=== PATIENT | male | born 1950 | race Caucasian/White ===

== ENCOUNTER 2017-11-06 07:41 | Observation (INO) | payer MEDICARE ==
[2017-11-06] MEDS ORDERED: LORazepam INJ* 2 MG/ML 1 ML VIAL IV ONE (08:11)
[2017-11-06] MEDS ORDERED: Ketorolac INJ* 60 MG/2 ML VIAL IM ONE (08:11)
[2017-11-06] MEDS ORDERED: LORazepam TAB(*) 1 MG PO ONE (08:30)
[2017-11-06] MEDS ORDERED: oxyCODONE/Acetamin 5/325 MG* TAB PO ONE (09:56)
--- NOTE | 2017-11-06 12:07 | RAD ---
Indication: Back pain. CT of the thoracic spine was obtained in the axial plane. Sagittal and coronal reconstructed images were obtained. The vertebral bodies appear normal in height. Degenerative disc disease is present at multiple levels. There is disc space narrowing at T6-T7. Osteophyte formation is present throughout the mid to lower thoracic spine. Spinal canal appears to be intact. No fracture is identified. IMPRESSION: Multilevel degenerative disc disease without evidence of fracture.
[2017-11-06] MEDS ORDERED: Morphine VIAL* 4 MG/ML VIAL (1 ml vial) IV PRN (14:52)
[2017-11-06] MEDS ORDERED: Ondansetron 40 MG VIAL* 2 MG/ML 20 ML VIAL IV PRN (14:52)
[2017-11-06] MEDS ORDERED: Al Hydrox/Mg Hydrox/Simet LIQ* 30 ML UDC PO PRN (14:52)
[2017-11-06] MEDS ORDERED: Ketorolac INJ* 15 MG/ML 1 ML VIAL IV PUSH PRN (15:00)
--- NOTE | 2017-11-06 15:24 | ED ---
Leonel Horne Jennifer, scribed for Enzo Gong MD on 11/06/17 at 0812 . Back Pain - HPI Summary HPI Summary: The patient is a 66 y/o who presents with back pain/injury since last night. The patient explains that he was grocery shopping last night and lifted two 10lb bags of bird seed when the pain began. 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 The patient explains he took some Ibuprofen, but the pain worsened throughout the night. The pain is located in the center of the back and feels like its constantly spasming. Patient denies problems with urination. - History of Current Complaint Chief Complaint: EDBackInjuryPain Stated Complaint: BACK PAIN Time Seen by Provider: 11/06/17 07:57 Hx Obtained From: Patient Onset/Duration: Sudden Onset, Lasting Hours - began last night, Still Present, Worse Since - middle of night Onset/Duration: Started Hours Ago, Still Present, Worse Since - worsened throughout the night Timing: Constant, Lasting Hours Back Pain Location: Is Discrete @ - middle back Severity Initially: Moderate Severity Currently: Moderate Pain Intensity: 4 Pain Scale Used: 0-10 Numeric Character: Spasmodic Aggravating Symptom(s): Lifting, Walking Alleviating Symptom(s): Rest Associated Signs And Symptoms: Negative: Abdominal Pain, Bladder Incontinence, Bowel Incontinence - Allergies/Home Medications Allergies/Adverse Reactions: Allergies Allergy/AdvReac Type Severity Reaction Status Date / Time sulfamethoxazole Allergy Hives Verified 11/06/17 07:50 [From Bactrim] trimethoprim [From Bactrim] Allergy Hives Verified 11/06/17 07:50 Home Medications: Home Medications Cyanocobalamin TAB* [Vitamin B12 TAB*] 500 mcg PO DAILY 11/06/17 [History Confirmed 11/06/17] Finasteride TAB* [Proscar TAB*] 5 mg PO DAILY 11/06/17 [History Confirmed ] Glucosamine/D3/Boswellia Deja [Osteo Bi-Flex Tablet] 1 tab PO DAILY 11/06/17 [ History Confirmed 11/06/17] Pyridoxine TAB* [Vitamin B6 TAB*] 100 mg PO DAILY 11/06/17 [History Confirmed ] Tamsulosin CAP* [Flomax CAP*] 0.8 mg PO DAILY 11/06/17 [History Confirmed ] Thiamine TAB* [Vitamin B-1 TAB*] 100 mg PO DAILY 11/06/17 [History Confirmed ] PMH/Surg Hx/FS Hx/Imm Hx Endocrine/Hematology History: Denies: Hx Diabetes Cardiovascular History: Reports: Hx Hypertension Musculoskeletal History: Reports: Other Musculoskeletal History - Hx degenerative disc disease Infectious Disease History: No Infectious Disease History: Denies: Traveled Outside the [place] in Last 30 Days - Family History Known Family History: Positive: Hypertension - Father, Diabetes - Uncle - Social History Alcohol Use: Rare Hx Substance Use: No Substance Use Type: Reports: None Hx Tobacco Use: No Smoking Status (MU): Never Smoked Tobacco Review of Systems Negative: dysuria, frequency, hematuria, incontinence Positive: Myalgia - back pain All Other Systems Reviewed And Are Negative: Yes Physical Exam - Summary Physical Exam Summary: Appearance: The patient is well-nourished in no acute distress and in no acute pain. Skin: The skin is warm and dry and skin color reflects adequate perfusion. HEENT: The head is normocephalic and atraumatic. The pupils are equal and reactive. The conjunctivae are clear and without drainage. Nares are patent and without drainage. Mouth reveals moist mucous membranes and the throat is without erythema and exudate. The external ears are intact. The ear canals are patent and without drainage. The tympanic membranes are intact. Neck: the neck is supple with full range of motion and non-tender. There are no carotid bruits. There is no neck vein distension. Respiratory: Chest is non-tender. Lungs are clear to auscultation and breath sounds are symmetrical and equal. Cardiovascular: Heart is regular rate and rhythm. There is no murmur or rub auscultated. There is no peripheral edema and pulses are symmetrical and equal. Abdomen: The abdomen is soft and non-tender. There are normal bowel sounds heard in all four quadrants and there is no organomegaly palpated. Musculoskeletal: There is paradorsal tenderness. Extremities are non-tender with full range of motion. There is good capillary refill. There is no peripheral edema or calf tenderness elicited. Neurological: Patient is alert and oriented to person, place and time. The patient has symmetrical motor strength in all four extremities. Cranial nerves are grossly intact. Deep tendon reflexes are symmetrical and equal in all four extremities. Psychiatric: The patient has an appropriate affect and does not exhibit any anxiety or depression. Triage Information Reviewed: Yes Vital Signs On Initial Exam: Initial Vitals Pulse Pulse Ox 81 100 11/06/17 07:47 11/06/17 07:47 Vital Signs Reviewed: Yes Diagnostics - Vital Signs Vital Signs Temp Pulse Resp BP Pulse Ox 11/06/17 07:53 85 100 11/06/17 07:48 99.0 F 81 18 177/87 99 11/06/17 07:47 81 100 - Laboratory Lab Statement: Any lab studies that have been ordered have been reviewed, and results considered in the medical decision making process. - CT T-Spine CT CT Interpretation: No Acute Changes - Multilevel degenerative disc disease without evidence of fracture. Dr. Gong has reviewed this report. CT Interpretation Completed By: Radiologist Re-Evaluation - Re-Evaluation First Eval Re-Evaluation Time: 09:56 Change: Improved Comment: The patient is feeling better but not enough yet. Back Pain Course/Dx - Course Course Of Treatment: Mr. Brower hurt his back lifting some bags yesterday. It got steadily worse thoughout the day and he was unable to walk this AM when he woke up. He didn't respond well to medications here in the ED so I obtained a CT to make sure nothing was being missed. He does have disc space narrowing at D6-7. His pain continued unabated and he was unable to get out of the bed. I have asked the hospitalist service to evaulate him. - Diagnoses Provider Diagnoses: Intractable back pain Discharge - Sign-Out/Discharge Documenting (check all that apply): Discharge/Admit/Transfer - Discharge Plan Condition: Stable Disposition: ADMITTED TO [facility] Referrals: Ambrosio Colon MD [Primary Care Provider] - Additional Instructions: Follow up with your primary care physician in three days. Return to the emergency department for any new or worsening symptoms. - Billing Disposition and Condition Condition: STABLE Disposition: [facility] [place] The documentation as recorded by the Leonel beard Jennifer accurately reflects the service I personally performed and the decisions made by me, Enzo Gong MD.
[2017-11-06] MEDS: oxyCODONE/Acetamin 5/325 MG* TAB PO PRN (15:47)
[2017-11-06] MEDS: Cyclobenzaprine TAB* 10 MG PO PRN ×2 (15:47→21:09)
[2017-11-06] MEDS: Tamsulosin CAP* 0.4 MG PO SCH (16:56)
[2017-11-06] MEDS: Finasteride TAB* 5 MG PO SCH (16:57)
--- NOTE | 2017-11-06 18:07 | RAD ---
INDICATION: MRI screening COMPARISON: None TECHNIQUE: Pandya and lateral views of the orbits were acquired FINDINGS: Orbits: There is no evidence of intraorbital metallic density foreign body. Other: None IMPRESSION: no metallic intraorbital foreign body
--- NOTE | 2017-11-06 18:43 | RAD ---
INDICATION: Thoracic and lumbar pain COMPARISON: CT thoracic spine same date TECHNIQUE: Coronal T2, sagittal T1, T2, inversion recovery, and axial T1 and T2-weighted images were acquired. FINDINGS: Conus medullaris: Normal in size and position . Lumbar alignment: 1 anterolisthesis L4 on L5. Vertebrae: There are mild multilevel endplate marrow signal abnormalities consistent with osteoarthritis. Disc spaces: T12-L1: Normal L1-L2: Normal L2-L3: Minor narrowing. Mild broad-based circumferential bulging the disc leading to mild partial effacement of the anterior thecal sac. Wide canal and foraminal patency. L3-L4: Mild bibasilar circumferential bulging the disc leading to partial effacement of CSF anterior to the cord. Wide canal and foraminal patency L4-L5: Mild degenerative endplate changes. In this space narrowing. A 3 mm anterolisthesis of L4 and L5 combined with ligamentous and facet overgrowth and moderate bulging the disc produces mild to moderate central canal stenosis. There is mild bilateral foraminal narrowing. L5-S1: Advanced degenerative disc disease with endplate irregularities. No canal or foraminal compromise Soft tissues:There is no paravertebral abnormality. Other:None IMPRESSION: Grade 1 anterolisthesis of L4 and L5 with mild to moderate central canal stenosis and mild bilateral foraminal narrowing. Additional multilevel degenerative changes as described there are not associated with canal or foraminal compromise.
--- NOTE | 2017-11-06 20:41 | HP ---
ADMISSION HISTORY AND PHYSICAL: DATE OF ADMISSION: 11/06/17 PATIENT OF: Yumiko Anupboris DO * (DICTATED BY DAVID OTTO) CHIEF COMPLAINT: Mid back pain and inability to walk. HISTORY OF PRESENT ILLNESS: Mr. Brower is a pleasant 66-year-old gentleman with past medical history significant for benign prostatic hypertrophy for which he has been seeing Dr. Molina for the past few years. He presented to the emergency room earlier today with complaints of 1-day history of worsening mid back pain and muscle spasm. The patient apparently was grocery shopping yesterday and he reports bending over slightly to carry 2 heavy bags of bird seeds, both of them weighing approximately 10 to 20 pounds when he noticed some mid back discomfort. He continued shopping and when he went back to his car in the parking lot, he emptied his shopping card including the bird seed bags as well as multiple containers of water. He noticed increasing pain at the same area in his mid back, but was able to carry on and drove back home. He took 2 ibuprofen tablets overnight and he got up early this morning with worsening mid back pain and spasm. It has gotten progressively worse to the point that he was not able to tolerate walking. He was brought to the emergency room by ambulance as he described he was not able to walk on his own at all. He denies any urinary or fecal incontinence or any significant fall or trauma other than lifting heavy objects yesterday while grocery shopping. He denies any similar complaints in the past. His only significant history of back problems dated years ago when he was 24 years old when he fell and hit a chair on his back; however, there was no significant injury that needed any intervention. He reports occasional aches and pains related to probable arthritis, but denies again any significant back issues in the recent years. He was elevated in the emergency room and had a thoracic spine CT that revealed degenerative joint disease with no evidence of any vertebral fracture or narrowing of the neural canal. The patient continued to be unable to walk and continued to have occasional spasm to his mid back for which we were asked to see the patient for evaluation and possible admission. PAST MEDICAL HISTORY: Significant for benign prostatic hypertrophy, but otherwise he has been an extremely healthy 66-year-old gentleman who denies any history of heart, liver, lungs or kidney disease. PAST SURGICAL HISTORY: Significant for a benign cyst removal from the back of his head years ago. CURRENT MEDICATIONS: His medications at home include: 1. Vitamin B12, 500 mcg p.o. daily. 2. Proscar 5 mg p.o. daily. 3. Glucosamine and chondroitin combination 1 tablet p.o. daily. 4. Vitamin B6, 100 mg p.o. daily. 5. Tamsulosin 0.8 mg p.o. daily. 6. Vitamin B1 tablets 100 mg p.o. daily. ALLERGIES: He is allergic to: 1. BACTRIM. 2. SULFA ANTIBIOTICS. FAMILY HISTORY: He denies any family history of significant malignancies or cardiovascular disease. SOCIAL HISTORY: The patient is , has 4 kids and 6 grand kids. 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 He denies smoking or alcohol intake. His , Yazmin, is the person to notify and carry healthcare proxy. REVIEW OF SYSTEMS: See HPI, otherwise 14-point review of systems is essentially normal. PHYSICAL EXAMINATION GENERAL: He is a pleasant healthy appearing upper middle-aged gentleman, in no acute distress or discomfort at the time of admission. VITAL SIGNS: His recent set of vitals was blood pressure of 153/76, pulse of 78 , temperature of 99.0, pulse of 78, and O2 sat of 98% on room air. HEENT: Head is normocephalic, atraumatic. Sclerae anicteric. PERRLA. EOMs intact. Oropharynx is pink and moist with no exudate. NECK: Supple. Trachea midline. No cervical adenopathy, thyromegaly, or JVD. LUNGS: Clear to auscultation bilaterally. HEART: Regular rate and rhythm. Normal S1 and S2 without rubs, murmurs, or gallops. BACK: Normal curvature. No CVA tenderness. Focused examination to the spine revealed moderate spinal and para-spinal tenderness to the thoracic area with significant muscle rigidity including latissimus dorsi and paraspinal muscle groups. There is no evidence of swelling or ecchymosis. L-spine and sacral spinal joints with no tenderness on exam. ABDOMEN: Soft, nontender, and nondistended. No hernias, masses, or hepatosplenomegaly. EXTREMITIES: Without cyanosis, clubbing, or edema. RECTAL: Deferred at this time. NEUROLOGIC: Sensation and motor were intact bilaterally. 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 He was able to lift both legs up off the bed about 30 degrees before he starts to experience some lower back discomfort. There is no foot drop and Babinski was negative. ACCESSORY DIAGNOSTIC DATA: The patient had a thoracic spine CT that revealed multilevel degenerative disk disease without evidence of fracture. IMPRESSION: A 66-year-old gentleman with no significant past medical history who presented to the emergency room with 24-hour history of worsening mid back pain and spasm after he lifted heavy objects while grocery shopping yesterday. ASSESSMENT/PLAN: 1. Back pain. The patient will be admitted for observation to medical services. We will provide analgesics, narcotics and muscle relaxant attempting to relieve his pain. We will also obtain a physical therapy consultation to see if he can ambulate. He appears to be stable at this time with no evidence of neurologic deficit. However, I explained to him that if he continued to have mid back pain and inability to ambulate, we might require to get a neurologic consultation for further evaluation of back pain. 2. Benign prostatic hypertrophy. We will continue his Proscar and tamsulosin as prescribed. The patient has experienced no signs of urinary retention, neither urinary incontinence. 3. DVT prophylaxis. Given his age alone, the patient is considered moderate risk for which we will cover him with subcu heparin as well as SCD. 4. Code status. The patient is a full code. DAVID OTTO [id number]/[facility] #: [id number] RHONDA
[2017-11-06] MEDS: Acetaminophen TAB* 325 MG PO PRN (21:08)
[2017-11-06] MEDS: Docusate CAP* 100 MG PO SCH (21:09)
[2017-11-06] MEDS: Heparin VIAL(*) 5000 UNITS/ML VIAL (FIVE THOUSAND) SUBCUT SCH (21:13)
[2017-11-07] MEDS: oxyCODONE/Acetamin 5/325 MG* TAB PO PRN (03:49)
[2017-11-07 05:12] LABS: ABS Basophils 0 10^3/ul (0-0.2); ABS Eosinophils 0 10^3/ul (0-0.6); ABS Lymphocytes 0.7 10^3/ul (1.0-4.8); ABS Monocytes 1.3 10^3/ul (0-0.8); ABS Neutrophils 12.5 10^3/ul (1.5-7.7); ABS Nucleated RBC 0 10^3/ul; Eosinophil % 0.1 % (0-6); Hematocrit 43 % (42-52); Hemoglobin 14.7 g/dl (14.0-18.0); Lymphocyte % 4.9 % (25-47); Mean Corpuscular HGB Conc 35 g/dl (31-36); Mean Corpuscular Hemoglobin 31 pg (27-31); Mean Corpuscular Volume 90 fL (80-94); Mean Platelet Volume 7.3 um3 (7.4-10.4); Nucleated Red Blood Cells % 0; Platelet Count 170 10^3/ul (150-450); Red Blood Count 4.73 10^6/ul (4.0-5.4); Red Cell Distribution Width 13 % (10.5-15); White Blood Count 14.6 10^3/ul (3.5-10.8)
[2017-11-07 05:28] LABS: EGFR Non-African American 84.2 (>60)
[2017-11-07] MEDS: Heparin VIAL(*) 5000 UNITS/ML VIAL (FIVE THOUSAND) SUBCUT SCH ×2 (06:46→14:08)
[2017-11-07] MEDS: Finasteride TAB* 5 MG PO SCH (08:04)
[2017-11-07] MEDS: Tamsulosin CAP* 0.4 MG PO SCH (08:04)
[2017-11-07] MEDS: Docusate CAP* 100 MG PO SCH (08:04)
[2017-11-07] MEDS: Cyclobenzaprine TAB* 10 MG PO PRN (08:05)
[2017-11-07] MEDS ORDERED: Finasteride TAB* 5 MG PO SCH (09:00)
[2017-11-07] MEDS ORDERED: Tamsulosin CAP* 0.4 MG PO SCH (09:00)
--- NOTE | 2017-11-07 11:39 | RAD ---
Dictation: Fever, leukocytosis. Single frontal view of the chest performed at 1026 hours was reviewed. No prior study is available. No mediastinal shift is noted. Heart is of normal size and configuration. Lung antonio appear clear. IMPRESSION: NO ACTIVE CARDIOPULMONARY DISEASE IS NOTED.
[2017-11-07 11:43] VITALS: BP 158/71
[2017-11-07 12:44] LABS: Urine Appearance Cloudy; Urine Blood 2+ (Negative); Urine Color Amber; Urine Ketones Negative (Negative); Urine Protein 1+(30 mg/dL) (Negative); Urine Specific Gravity 1.029 (1.010-1.030); Urine Urobilinogen Negative (Negative)
[2017-11-07] MEDS: Acetaminophen TAB* 325 MG PO PRN (13:56)
--- NOTE | 2017-11-08 06:11 | DS ---
CC: Dr. Ambrosio Colon* DISCHARGE SUMMARY: DATE OF ADMISSION: 11/06/17 DATE OF DISCHARGE: 11/07/17 PATIENT OF: Yumiko Barrios DO ATTENDING HOSPITALIST: Abel Steele MD* (dictated by DAVID Otto). CONSULTATIONS: None. PROCEDURE: None. CHIEF COMPLAINT: Mid back pain and inability to walk. BRIEF MEDICAL HISTORY: Mr. Brower is a pleasant 66-year-old gentleman with no significant past medical history except for benign prostatic hypertrophy for which he has been taking medication and been seen by Dr. Molina in the past. He presented to the emergency room yesterday morning with complaints of 1-day history of worsening mid back pain and spasm. He apparently was grocery shopping the day before admission and he reports bending over to slightly carry 2 heavy bags of bird seeds when he noticed some cramping and spasm in his mid back. He was able to lift the bags to his shopping cart and noticed recurrent discomfort when he emptied his shopping cart in the back of his car. He went home and took some ibuprofen, felt slightly better. He got up on the next morning with excruciating pain and spasm to his mid back. It has gotten worse to the point that he could not ambulate very well for which ambulance was called to transport him to the emergency room. He denied any weakness, numbness , fecal or urinary incontinence. He had trauma back when he was 24 years old when he fell on a chair but there was no damage or any investigation to his back spine. During his emergency room visit, he had a CT scan of the thoracic spine that showed degenerative joint changes with no evidence of vertebral fractures. The patient continued to be unable to walk despite pain medication in the ED for which we were asked to evaluate the patient and admit him for pain control and observation. HOSPITAL COURSE: The patient was admitted on 11/06/17 under hospitalist service for observation. He was given narcotics for pain in addition to Flexeril for muscle relaxant. Physical Therapy consultation was obtained and patient eventually was able to ambulate slightly that night. He continued to have intermittent pain and spasm and was unable to tolerate walking for long distance for which an MRI of lumbar spine was obtained that evening. The MRI was reviewed and showed grade 1 anterolisthesis of L4 and L5 with mild-to- moderate central canal stenosis and mild bilateral foraminal narrowing. There were also some changes consistent with degenerative joint disease. That results were discussed with Dr. Coffman without formal consultation obtained. He was able to review the MRI and there were no clinical red flags to suggest inability to ambulate. The patient was reevaluated in the morning and he continued to have some muscle spasm that has gotten better overnight. He was able to complete his physical therapy session and he walked approximately 85 feet around the hallway using walker for assistance. He denied any complaints of significant lower back pain or incontinence of stool or urine. He had a low- grade fever overnight with temperature of 99.4 for which a CBC, urinalysis, and chest x-ray was obtained and the patient had slight leukocytosis in the setting with elevated CRP, which is consistent with inflammatory changes that is secondary to his muscle spasm. The patient continued to improve throughout the day. He was ambulating using his walker and the plan for him to be discharged home later today and follow up with his primary care physician in the next 3 to 5 days. DISCHARGE MEDICATIONS: Include: 1. Vitamin B12 500 mcg p.o. daily. 2. Flexeril 10 mg p.o. t.i.d. 3. Colace 100 mg p.o. b.i.d. 4. Proscar 5 mg p.o. daily. 5. Glucosamine 1 tablet p.o. daily. 6. Percocet 5/325 two tablets p.o. q.6 hours as needed for pain. 7. Vitamin B6 100 mg p.o. daily. 8. Flomax 0.8 mg p.o. daily. 9. Thiamine 100 mg p.o. daily. DAVID OTTO [id number]/[facility] #: [id number] RHONDA
--- NOTE | 2017-11-08 06:30 | PN ---
Hospitalist Progress Note Date of Service: 11/08/17 Received call from lab about positive blood culture one bottle grew gram negative bertha. Note fever 100.3 yesterday and crp elevated and wbc 14.9. Call patient patient states he is still having back pain in the upper back between shoulders. Denies fever. I explained that he needs to come back to ER for further eval and possible iv abx. I also explained that his PO abx may not be adequate and that bacteremia can lead to sepsis and possible shock and if untreated. He states he will come in at 1100 today. Will alert ED of patient and that he may be coming to the ED.
== END 2017-11-07 15:35 | disposition home or self-care (01) ==
LOC: ED 07:41 → MED 15:32
PROVIDERS: ADMIT Internal Medicine; ATTEND Internal Medicine
DX: M54.9 Dorsalgia, unspecified (principal); N40.1 Benign prostatic hyperplasia with lower urinary tract symptoms; M62.830 Muscle spasm of back
CPT/HCPCS: 36415; 70030; 71045; 72128; 72148; 80048; 81003; 81015; 85025; 86140; 87040; 87077; 87086; 87186; 87205; 96372; 96374; 99284; A9270-GY; G0378; G8978-GP-CI; G8979-GP-CH; J1644; J1885; J2270

== ENCOUNTER 2017-11-08 11:06 | Inpatient (IN) | payer MEDICARE ==
[2017-11-08] MEDS ORDERED: NS 0.9% 1000 ML*IV.FLUID IV ONE (12:59)
[2017-11-08] MEDS ORDERED: Acetaminophen TAB* 325 MG PO ONE (13:15)
--- NOTE | 2017-11-08 13:29 | ED ---
Sepsis HPI - HPI Summary HPI Summary: Patient returns to ED after presenting on Monday with acute onset thoracic back pain. His thoracic back pain started after lifting heavy objects at the grocery store. He had a thoracic CT of the area which showed degenerative disc disease however no acute findings were identified, including fx, abscess. He was admitted to the hospitalist as his pain was intractable despite multiple medication attempts her in the ED. While hospitalized, he developed chills and a low-grade fever. Labs were drawn and he was found to have an elevated white blood cell count however without known source of infection, patient was discharged home. His blood culture grew gram-negative bacilli and so he was asked to return here today. He continues to have a fever and pain in his upper back. It is unsure if these 2 are related. His urine revealed blood, protein and final urine culture reveals no growth. He does admit to a history of prostate infections in the past however he does not have the symptoms that typically go along with this which are perineal fullness and burning. He denies recent injury or wounds to his skin that could be creating infection. He also denies urinary symptoms as well as respiratory symptoms and GI symptoms of nausea, vomiting, diarrhea, hematochezia, melena. He has been constipated since he's been taking pain medication for back pain on Monday. - these include narcotic and muscle relaxer. Denies headache, neck pain or stiffness, numbness , tingling, weakness. He is an overall healthy gentleman who takes no medication at home. Admits he had HTN in the past but reports it's been well controlled for years. Will be treated for gram neg bacilli bacteremia today and continue to search for source of his infection. With h/o prostate infection and gram neg bacilli, suspect this could be the source. - History of Current Complaint Chief Complaint: EDGeneral Time Seen by Provider: 11/08/17 12:58 Stated Complaint: BACK PAIN Hx Obtained From: Patient, Family/German Teacher - Pain Intensity: 4 - Additional Pertinent History Primary Care Physician: [id number] - Allergy/Home Medications Allergies/Adverse Reactions: Allergies Allergy/AdvReac Type Severity Reaction Status Date / Time sulfamethoxazole Allergy Hives Verified 11/08/17 11:10 [From Bactrim] trimethoprim [From Bactrim] Allergy Hives Verified 11/08/17 11:10 PMH/Surg Hx/FS Hx/Imm Hx Previously Healthy: Yes Endocrine/Hematology History: Denies: Hx Anticoagulant Therapy, Hx Blood Disorders, Hx Diabetes Cardiovascular History: Reports: Hx Hypercholesterolemia - resolved with diet, Hx Hypertension - resolved with diet Denies: Hx Aneurysm, Hx Coronary Artery Disease, Hx Myocardial Infarction, Hx Pacemaker/ICD, Hx Valvular Heart Disease Respiratory History: Denies: Hx Asthma, Hx Chronic Obstructive Pulmonary Disease (COPD), Hx Pneumonia GI History: Reports: Hx Irritable Bowel - treating with diet changes History: Reports: Hx Benign Prostatic Hyperplasia, Other Problems/ Disorders - h/o prostate infection Musculoskeletal History: Reports: Hx Back Problems, Other Musculoskeletal History - Hx degenerative disc disease Sensory History: Reports: Hx Contacts or Glasses Denies: Hx Hearing Aid, Other Sensory Impairments Opthamlomology History: Reports: Hx Contacts or Glasses Denies: Other Sensory Impairments Psychiatric History: Denies: Hx Panic Disorder - Immunization History Immunizations Up to Date: Yes Infectious Disease History: No Infectious Disease History: Denies: Hx Clostridium Difficile, Hx Hepatitis, Hx Human Immunodeficiency Virus (HIV), Hx of Known/Suspected MRSA, Traveled Outside the [place] in Last 30 Days - Family History Known Family History: Positive: Hypertension - Father, Diabetes - Uncle - Social History Alcohol Use: Rare Hx Substance Use: No Substance Use Type: Reports: None Hx Tobacco Use: No Smoking Status (MU): Never Smoked Tobacco Review of Systems Positive: Fever Eyes: Negative ENT: Negative Cardiovascular: Negative Respiratory: Negative Gastrointestinal: Other - stomach is getting Physical Exam Vital Signs On Initial Exam: Initial Vitals Temp Pulse Resp BP Pulse Ox 100.8 F 93 20 165/69 97 11/08/17 11:10 11/08/17 11:10 11/08/17 11:10 11/08/17 11:10 11/08/17 11:10 Diagnostics - Vital Signs Vital Signs Temp Pulse Resp BP Pulse Ox 11/08/17 11:10 100.8 F 93 20 165/69 97 - Laboratory Lab Statement: Any lab studies that have been ordered have been reviewed, and results considered in the medical decision making process. Discharge - Discharge Plan Referrals: Ambrosio Colon MD [Primary Care Provider] -
[2017-11-08] MEDS ORDERED: Cefepime 2 GM in Dextrose(*) 2 GM/50 ML BAG IV ONE (13:39)
[2017-11-08] MEDS ORDERED: Ketorolac INJ* 30 MG/ML 1 ML VIAL IV PUSH ONE (13:44)
[2017-11-08 13:52] LABS: ABS Basophils 0 10^3/ul (0-0.2); ABS Eosinophils 0 10^3/ul (0-0.6); ABS Lymphocytes 0.6 10^3/ul (1.0-4.8); ABS Neutrophils 8.7 10^3/ul (1.5-7.7); ABS Nucleated RBC 0 10^3/ul; Eosinophil % 0 % (0-6); Hematocrit 41 % (42-52); Hemoglobin 14.4 g/dl (14.0-18.0); Lymphocyte % 5.8 % (25-47); Mean Corpuscular HGB Conc 35 g/dl (31-36); Mean Corpuscular Hemoglobin 31 pg (27-31); Mean Corpuscular Volume 89 fL (80-94); Mean Platelet Volume 7.5 um3 (7.4-10.4); Nucleated Red Blood Cells % 0.1; Platelet Count 163 10^3/ul (150-450); Red Blood Count 4.61 10^6/ul (4.0-5.4); Red Cell Distribution Width 13 % (10.5-15); White Blood Count 10.4 10^3/ul (3.5-10.8)
[2017-11-08 14:07] LABS: INR 0.97 (0.77-1.02)
[2017-11-08 14:14] LABS: EGFR Non-African American 76.3 (>60)
--- NOTE | 2017-11-08 14:15 | RAD ---
INDICATION: Sepsis. COMPARISON: Comparison is made with a prior study from February 07, 2018. TECHNIQUE: A portable view of the chest was obtained. FINDINGS: Cardiac and mediastinal contours appear to be within normal limits. The lungs are clear. No pleural effusion is seen. IMPRESSION: NO EVIDENCE FOR ACUTE DISEASE.
[2017-11-08] MEDS ORDERED: Cyclobenzaprine TAB* 10 MG PO PRN (14:29)
[2017-11-08] MEDS ORDERED: oxyCODONE/Acetamin 5/325 MG* TAB PO PRN ×2 (14:29→14:30)
[2017-11-08] MEDS ORDERED: Morphine VIAL* 4 MG/ML VIAL (1 ml vial) IV PRN (14:48)
[2017-11-08] MEDS ORDERED: Ondansetron 40 MG VIAL* 2 MG/ML 20 ML VIAL IV PRN (14:49)
[2017-11-08 15:08] LABS: Urine Appearance Clear; Urine Blood 2+ (Negative); Urine Color Yellow; Urine Ketones Trace (Negative); Urine Protein Negative (Negative); Urine Specific Gravity 1.006 (1.010-1.030); Urine Urobilinogen Negative (Negative)
[2017-11-08] MEDS ORDERED: Gadoteridol* (CONTRAST) 279.3 MG/ML 10 ML IV ONE (15:26)
--- NOTE | 2017-11-08 16:32 | RAD ---
INDICATION: Back pain. Possible infection . Bacteremia. COMPARISON: CT thoracic spine November 06, 2017 TECHNIQUE: Noncontrast Coronal T2, sagittal T1, T2, inversion recovery, and axial T1 and T2-weighted images were acquired. FINDINGS: Cord: There are no intrinsic abnormalities of the cord. Vertebrae/disc: There are endplate changes at T6-T7 with edema. This is most likely related to degenerative disc disease although osteomyelitis/discitis could have this appearance. There are milder osteocytic changes of the thoracic spine with minor vertebral spurring is better identified on the CT. There is additional minor multilevel disc space narrowing. Paravertebral soft tissues there is no paravertebral mass. There is are no findings to suggest abscess. IMPRESSION: ENDPLATE IRREGULARITIES WITH EDEMA AT THE T6-T7 LEVEL CORRESPONDING TO DEGENERATIVE CHANGES IDENTIFIED ON THE EARLIER CT SCAN. THESE FINDINGS ARE LIKELY SECONDARY TO OSTEOARTHRITIS/DEGENERATIVE CHANGE. HOWEVER, OSTEOMYELITIS/DISCITIS CANNOT BE EXCLUDED.
[2017-11-08] MEDS: Tamsulosin CAP* 0.4 MG PO SCH (17:51)
[2017-11-08] MEDS: Polyethylene Glycol 3350* 17 GM PACKET PO PRN (17:51)
[2017-11-08] MEDS: NS 0.9% 1000 ML* 1,000 ML IV SCH (17:51)
[2017-11-08] MEDS: Finasteride TAB* 5 MG PO SCH (17:51)
[2017-11-08] MEDS: Magnesium Hydroxide LIQ* 30 ML UDC PO PRN (17:51)
[2017-11-08] MEDS: Acetaminophen TAB* 325 MG PO PRN ×2 (18:22→22:33)
[2017-11-08] MEDS ORDERED: Ketorolac INJ* 15 MG/ML 1 ML VIAL IV PUSH ONE (20:42)
--- NOTE | 2017-11-08 21:16 | HP ---
CC: Dr. Ambrosio Colon * HISTORY AND PHYSICAL: DATE OF ADMISSION: 11/08/17 PRIMARY CARE PROVIDER: Dr. Ambrosio Colon. ATTENDING PHYSICIAN: Dr. Baldomero Zheng * (dictated by Joseph Fenton NP) . CHIEF COMPLAINT: Back pain, the patient was asked to return to the hospital after having 1 positive blood culture bottle with gram-negative bacteria. HISTORY OF PRESENT ILLNESS: Mr. Brower is a 66-year-old male with a past medical history significant for BPH, who presented initially to the hospital on 11/06/17, with complaints of thoracic back pain. The patient states that he had been in his usual state of health and was at the grocery store when he lifted two 10-pound bags into the car and then while lifting 1 gallon water jugs into the car, he developed a sudden onset of thoracic back pain. Due to this, he presented to the emergency room. While in the emergency room, the patient had intractable pain and so the Hospitalist admitted him. The patient was admitted overnight and continued to have pain throughout his overnight hospitalization. He had a thoracic spine CT showing multilevel degenerative disk disease. He had an MRI of his lumbar spine without contrast showing " grade 1 anterolisthesis at L4 and L5 with [id number] central canal stenosis and mild bilateral foraminal narrowing. Additional multilevel degenerative changes are described without associated canal or foraminal compromise". The patient was able to ambulate and was discharged home yesterday on 11/07/17. The patient reports a fever and chills. He denies any chest pain, cough, shortness of breath, nausea, vomiting, nasal congestion, urinary symptoms such as dysuria, urgency, frequency, pelvic pressure. He also reports being constipated and not having a bowel movement in 3 days. He denies any joint pain or muscle pain other than his back pain. The patient denies any numbness, tingling, or weakness in his legs, or loss of bowel or bladder control. He also reports postnasal drip. The patient received a call today from the hospital informing him that he had bacteria in his blood cultures and he was asked to come back to the emergency room for further evaluation. While in the emergency room, the patient had another set of blood cultures drawn. He received normal saline bolus according to sepsis guidelines. He received cefepime, Toradol, and Tylenol. The patient stated during his time in the ER, his pain was actually improving in his back. Due to the patient's bacteremia, the Hospitalists were asked to evaluate the patient for admission. PAST MEDICAL HISTORY: BPH. PAST SURGICAL HISTORY: Status post excision of benign cyst to the back of his head. HOME MEDICATIONS: Include: 1. Vitamin B6 100 mg oral daily. 2. Percocet 5/325 two tablets oral every 6 hours as needed for pain. 3. Flexeril 10 mg oral 3 times daily as needed for muscle spasms. 4. Vitamin B12 500 mcg oral daily. 5. Osteo Bi-Flex 1 tablet oral daily. 6. Proscar 5 mg oral daily. 7. Colace 100 mg oral twice daily. 8. Thiamine 100 mg oral daily. 9. Flomax 0.8 mg oral daily. ALLERGIES: BACTRIM causes hives. FAMILY HISTORY: The patient's father had a history of an enlarged heart. He had a paternal uncle with a history of diabetes and his father had a history of leukemia. SOCIAL HISTORY: The patient is a former smoker. He rarely drinks alcohol. Denies recreational drug use. His , Yazmin Brower, will be his surrogate decision maker in the event he is unable to make decisions for himself. REVIEW OF SYSTEMS: I performed an 11-point review of systems. All the pertinent positives and negatives are mentioned in the history of present illness. The remaining review of systems are negative. PHYSICAL EXAMINATION GENERAL APPEARANCE: The patient is alert, pleasant and appears to be in no acute distress. VITAL SIGNS: Temperature 100.8, heart rate 93, respiratory rate 22, O2 sat 98% on room air, blood pressure 132/82. HEENT: Normocephalic, atraumatic. Pupils are equal and reactive to light. Extraocular movements are intact. The patient has no sinus tenderness. RESPIRATORY: There is no accessory muscle use. The lungs are clear to auscultation bilaterally. CARDIOVASCULAR: Regular rate and rhythm. S1 and S2 present. There are no murmurs, rubs, or gallops heard. ABDOMEN: Soft, nontender, nondistended. There are bowel sounds present x4. EXTREMITIES: There is no lower extremity edema. DP and PT pulses are 2+ and symmetric. MUSCULOSKELETAL: There is no clubbing or cyanosis noted. The patient exhibits good strength in all extremities. NEUROLOGICAL: The patient is alert and oriented x4. Cranial nerves II through XII are grossly intact. PSYCHOLOGICAL: The patient is calm and cooperative. SKIN: There are no rashes or abnormalities seen. DIAGNOSTIC STUDIES/LABORATORY DATA: Sodium 132, potassium 3.7, chloride 99, CO2 of 25, BUN 14, creatinine 0.98, glucose 119. White blood cell count 10.4, hemoglobin 14.4, hematocrit 41, platelet count 163. CRP 200.58. Lactic acid 1.1. EKG shows a sinus rhythm, rate of 93. There are no acute signs of ischemia. There are no previous EKGs for comparison. Chest x-ray from today. No evidence for acute disease. IMPRESSION: Mr. Brower is a 66-year-old male with past medical history significant benign prostatic hypertrophy, who presents to the emergency room after being called back for positive blood cultures. He will be admitted as an inpatient for bacteremia. ASSESSMENT/PLAN: 1. Gram-negative bacteremia. At this time, the there is an unclear source. We are going to get a MRI with and without contrast of his thoracic spine to evaluate for any spinal abscesses. His prostate could also be a source. He had no growth in his previous urine from 2 days prior. We will get another urinalysis. The patient is currently showing signs of sepsis with tachycardia, fever and tachypnea. He has already received his 30 mg/kg fluid bolus in the emergency room and been started on antibiotics. His lactic acid is not elevated. Dr. Mendez with Infectious Disease is aware the patient being here and he will consult on the patient tomorrow. 2. Benign prostatic hypertrophy. The patient will be continued on his home tamsulosin and Proscar. 3. Constipation. The patient reports not moving his bowels in 3 days. We will start him on a bowel regimen. 4. Fluids, electrolytes and nutrition. The patient will be on a regular diet. 5. Code status. Full code. 6. DVT prophylaxis. The patient is at highest risk. He will have subcu heparin. 7. Disposition. Inpatient. TIME SPENT: Time for this admission was approximately 60 minutes, greater than half of that was spent [id number] with the patient and discussing medications, past medical history, the events leading up to his arrival today, and performing a physical examination. Case has been reviewed with the attending, Dr. Zheng, who agrees with the plan of care. Reviewed by JOSEPH FENTON, CARLOS-Krunal 11/09/17 [id number]/[facility] #: [id number] RHONDA
[2017-11-08] MEDS: Cefepime 2 GM in Dextrose(*) 2 GM/50 ML BAG IV SCH (21:20)
[2017-11-08] MEDS: Docusate CAP* 100 MG PO SCH (21:22)
[2017-11-08] MEDS: Heparin VIAL(*) 5000 UNITS/ML VIAL (FIVE THOUSAND) SUBCUT SCH (21:23)
[2017-11-09] MEDS: NS 0.9% 1000 ML* 1,000 ML IV SCH ×2 (03:50→15:41)
[2017-11-09] MEDS: Cefepime 2 GM in Dextrose(*) 2 GM/50 ML BAG IV SCH ×3 (05:24→22:21)
[2017-11-09] MEDS: Heparin VIAL(*) 5000 UNITS/ML VIAL (FIVE THOUSAND) SUBCUT SCH ×3 (05:26→22:24)
[2017-11-09 05:45] LABS: ABS Basophils 0 10^3/ul (0-0.2); ABS Eosinophils 0 10^3/ul (0-0.6); ABS Lymphocytes 0.8 10^3/ul (1.0-4.8); ABS Monocytes 0.7 10^3/ul (0-0.8); ABS Neutrophils 5.9 10^3/ul (1.5-7.7); ABS Nucleated RBC 0 10^3/ul; Eosinophil % 0.2 % (0-6); Hematocrit 40 % (42-52); Lymphocyte % 10.1 % (25-47); Mean Corpuscular HGB Conc 35 g/dl (31-36); Mean Corpuscular Hemoglobin 31 pg (27-31); Mean Corpuscular Volume 91 fL (80-94); Mean Platelet Volume 7.3 um3 (7.4-10.4); Nucleated Red Blood Cells % 0; Platelet Count 153 10^3/ul (150-450); Red Blood Count 4.45 10^6/ul (4.0-5.4); Red Cell Distribution Width 13 % (10.5-15); White Blood Count 7.4 10^3/ul (3.5-10.8)
[2017-11-09 06:01] LABS: EGFR Non-African American 76.3 (>60)
[2017-11-09] MEDS: Acetaminophen TAB* 325 MG PO PRN ×3 (08:38→17:56)
[2017-11-09] MEDS: Thiamine TAB* 100 MG TAB PO SCH (08:42)
[2017-11-09] MEDS: Cyanocobalamin TAB* 500 MCG PO SCH (08:42)
[2017-11-09] MEDS: Finasteride TAB* 5 MG PO SCH (08:42)
[2017-11-09] MEDS: Pyridoxine TAB* 50 MG PO SCH (08:43)
[2017-11-09] MEDS: Tamsulosin CAP* 0.4 MG PO SCH (08:43)
[2017-11-09] MEDS: Docusate CAP* 100 MG PO SCH (08:43)
[2017-11-09] MEDS ORDERED: Tamsulosin CAP* 0.4 MG PO SCH (09:00)
[2017-11-09] MEDS ORDERED: Finasteride TAB* 5 MG PO SCH (09:00)
[2017-11-09] MEDS: Magnesium Hydroxide LIQ* 30 ML UDC PO PRN (09:26)
[2017-11-09] MEDS: Polyethylene Glycol 3350* 17 GM PACKET PO PRN (09:26)
--- NOTE | 2017-11-09 10:35 | CONSULT ---
<Janette Mckinnon - Last Filed: 11/09/17 11:15> Consult Consult: Requesting Service: DAVID Grullon, Emergency Room Reason for Consult: Back pain and Bacteremia HPI: 66 yo M w/ pmhx BPH, degenerative disc disease of lumbar spine ( L4-S1), IBS, HCV ( undetectable VL) presents with back pain and found with positive blood culture. The patient initally presented on 11/06/17 with thoracic back pain and was evaluated by the emergency room with an MRI of the thoracic spine and full set of labs. He was discharged home on 11/07/17 with combination of tylenol and toradol for pain control. He was called back to the emergency room on 11/08/17 after one blood culture returned back positive for gram negative bacilli. He was admitted to the hospital for thoracic back pain and gram negative bacteremia and infectious disease was consulted. The thoracic back pain started on Monday night 11/05/17 in the setting of lifting two 10 bags and transferring 7 gallons of water into his car. During these activities, he felt a severe 9/10 thoracic back pain that was described as a intense sharp pain with muscle spasm. The pain did not radiate and stayed in the same spot. He has never felt pain this severe before. Of note, on 11/02/17 , he endorsed mowing his grass for 5 hours and experiencing mild thoracic back tension but that pain resolved after rest. These activities are usual activities and did not feel like he over exerted himself. Nothing resolved the pain and has been constant since 11/05/17. It resulted in difficulty sleeping. Historically, he endorses a very bad upper respiratory infection 7 weeks ago that lasted 5 weeks and he self medicated with 8 days of doxycyline. This illness consisted of nasal congestion, post nasal drip and dry cough. He denied cough w/ mucus, dyspnea, fever, or chills during that illness. Last week, he had a dental cleaning. He regularly sees his urologist for his enlarged prostate and last instrumentation was 2 years ago with a cystocopy for hematuria workup. He travel to [place] in August but no out of country travel. He denied sick contacts, fever, chills, nausea, vomiting, cough, rash, chest pain, dyspnea in past month. He denies hardware in his body or recent instrumentation. He does endorse fatigue over past month. Upon arrival to the ED, he was admitted for further evaluation. Upon arrival to the floor, he has received repeat Thoracic MRI, IV Cefepime, and Tylenol for pain control. On my beside assessment, he endorsed that overnight he had chills and night sweats. He continued to have 9/10 thoracic back pain. He does complain of constipation. He denied bladder or bowel incontinence, marychuy-rectal/ upper or lower extremity numbness, extremity weakness. ROS. 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 Social Etoh consumption: few drinks a year during social occasions Home Medications: Flomax Finasteride Multivitamins Inpatient Medications: Acetaminophen (Tylenol Tab*) 650 mg PO Q4H PRN PRN Reason: FEVER/PAIN Last Admin: 11/09/17 08:38 Dose: 650 mg Cyanocobalamin (Vitamin B12 Tab*) 500 mcg PO DAILY [facility] Last Admin: 11/09/17 08:42 Dose: 500 mcg Cyclobenzaprine HCl (Flexeril Tab*) 10 mg PO TID PRN PRN Reason: SPASMS Docusate Sodium (Colace Cap*) 100 mg PO BID [facility] Last Admin: 11/09/17 08:43 Dose: 100 mg Finasteride (Proscar Tab*) 5 mg PO DAILY [facility] Last Admin: 11/09/17 08:42 Dose: 5 mg Heparin Sodium (Porcine) (Heparin Vial(*)) 5,000 units SUBCUT Q8HR [facility] Last Admin: 11/09/17 05:26 Dose: 5,000 units Sodium Chloride (Ns 0.9% 1000 Ml*) 1,000 mls @ 100 mls/hr IV PER RATE [facility] Last Admin: 11/09/17 03:50 Dose: 100 mls/hr Cefepime HCl (Maxipime 2 Gm In Dextrose Duplex (*)) 2 gm in 50 mls @ 100 mls/ hr IV Q8H [facility] Last Admin: 11/09/17 05:24 Dose: 100 mls/hr Magnesium Hydroxide (Milk Of Magnesia Liq*) 30 ml PO Q6H PRN PRN Reason: CONSTIPATION Last Admin: 11/09/17 09:26 Dose: 30 ml Morphine Sulfate (Morphine Vial*) 2 mg IV Q4H PRN PRN Reason: PAIN - SEVERE Ondansetron HCl (Zofran 40 Mg Vial*) 4 mg IV Q6H PRN PRN Reason: NAUSEA Oxycodone/Acetaminophen (Percocet 5/325 Tab*) 2 tab PO Q6H PRN PRN Reason: PAIN - MODERATE TO SEVERE Oxycodone/Acetaminophen (Percocet 5/325 Tab*) 1 tab PO Q4H PRN PRN Reason: PAIN - MILD TO MODERATE Polyethylene Glycol/Electrolytes (Miralax*) 17 gm PO DAILY PRN PRN Reason: CONSTIPATION Last Admin: 11/09/17 09:26 Dose: 17 gm Pyridoxine HCl (Vitamin B6 Tab*) 100 mg PO DAILY [facility] Last Admin: 11/09/17 08:43 Dose: 100 mg Tamsulosin HCl (Flomax Cap*) 0.8 mg PO DAILY [facility] Last Admin: 11/09/17 08:43 Dose: 0.8 mg Thiamine HCl (Vitamin B-1 Tab*) 100 mg PO DAILY [facility] Last Admin: 11/09/17 08:42 Dose: 100 mg Physical Exam: Initial Vital Signs Temp Pulse Resp BP Pulse Ox 38.2 C 93 20 165/69 97 11/08/17 11:10 11/08/17 11:10 11/08/17 11:10 11/08/17 11:10 11/08/17 11:10 Last Documented Vital Signs Temp Pulse Resp BP Pulse Ox 37.5 C 64 18 137/55 97 11/09/17 07:13 11/09/17 07:13 11/09/17 07:20 11/09/17 07:13 11/09/17 07:22 General : uncomfortable appearing, standing up HEENT: ncat, clear sclera, peerl, clear oropharynx without eyrthema or exudates , oral dentition with numerous fillings Neck: no cervical adenopathy, no posterior adenopathy, no thyromegaly, no JVD Heart: s1s2 audible, no g/m/r Lungs: ctab no w/r/r Abdomen: obese, soft, nt, normactive bs, no palpable organomegaly Back: no cva tenderness, paraspinal tenderness of thoracic spine from approximately T6-T9 Musculoskeletal: paraspinal tenderness of thoracic spine T6-T9 Neuro: a& o x3, 5/5 power b/l UE and LE, normal sensation b/l UE, 5/5 hand drier attendant , no focal neuro deficits Extremities: warm, no edema, +2 b/l pedal pulses Labs: Laboratory Information 11/08/17 11/08/17 11/08/17 13:35 13:35 13:35 WBC 10.4 RBC 4.61 Hgb 14.4 Hct 41 L MCV 89 MCH 31 MCHC 35 RDW 13 Plt Count 163 MPV 7.5 Neut % (Auto) 84.1 H Lymph % (Auto) 5.8 L [place] % (Auto) 10.0 H Eos % (Auto) 0 Baso % (Auto) 0.1 Absolute Neuts (auto) 8.7 H Absolute Lymphs (auto) 0.6 L Absolute Monos (auto) 1.0 H Absolute Eos (auto) 0 Absolute Basos (auto) 0 Absolute Nucleated RBC 0 Nucleated RBC % 0.1 ESR 49 H INR (Anticoag Therapy) 0.97 APTT 29.3 Sodium 132 L Potassium 3.7 Chloride 99 L Carbon Dioxide 25 Anion Gap 8 BUN 14 Creatinine 0.98 Est GFR ( Amer) 98.1 Est GFR (Non-Af Amer) 76.3 BUN/Creatinine Ratio 14.3 Glucose 119 H Lactic Acid Calcium 8.9 Total Bilirubin 0.70 AST 16 ALT 13 Alkaline Phosphatase 53 Troponin I 0.00 C-Reactive Protein 200.58 H Total Protein 6.8 Albumin 3.6 Globulin 3.2 Albumin/Globulin Ratio 1.1 Urine Color Urine Appearance Urine pH Ur Specific [place] Urine Protein Urine Ketones Urine Blood Urine Nitrate Urine Bilirubin Urine Urobilinogen Ur Leukocyte Esterase Urine WBC (Auto) Urine RBC (Auto) Urine Bacteria Urine Glucose 11/08/17 11/08/17 11/09/17 13:35 14:53 05:31 WBC 7.4 RBC 4.45 Hgb 14.0 Hct 40 L MCV 91 MCH 31 MCHC 35 RDW 13 Plt Count 153 MPV 7.3 L Neut % (Auto) 79.3 Lymph % (Auto) 10.1 L [place] % (Auto) 10.1 H Eos % (Auto) 0.2 Baso % (Auto) 0.3 Absolute Neuts (auto) 5.9 Absolute Lymphs (auto) 0.8 L Absolute Monos (auto) 0.7 Absolute Eos (auto) 0 Absolute Basos (auto) 0 Absolute Nucleated RBC 0 Nucleated RBC % 0 ESR INR (Anticoag Therapy) APTT Sodium Potassium Chloride Carbon Dioxide Anion Gap BUN Creatinine Est GFR ( Amer) Est GFR (Non-Af Amer) BUN/Creatinine Ratio Glucose Lactic Acid 1.1 Calcium Total Bilirubin AST ALT Alkaline Phosphatase Troponin I C-Reactive Protein Total Protein Albumin Globulin Albumin/Globulin Ratio Urine Color Yellow Urine Appearance Clear Urine pH 6.0 Ur Specific [place] 1.006 L Urine Protein Negative Urine Ketones Trace A Urine Blood 2+ A Urine Nitrate Negative Urine Bilirubin Negative Urine Urobilinogen Negative Ur Leukocyte Esterase Negative Urine WBC (Auto) Absent Urine RBC (Auto) 2+(6-10/hpf) A Urine Bacteria Absent Urine Glucose Negative 11/09/17 05:31 WBC RBC Hgb Hct MCV MCH MCHC RDW Plt Count MPV Neut % (Auto) Lymph % (Auto) [place] % (Auto) Eos % (Auto) Baso % (Auto) Absolute Neuts (auto) Absolute Lymphs (auto) Absolute Monos (auto) Absolute Eos (auto) Absolute Basos (auto) Absolute Nucleated RBC Nucleated RBC % ESR INR (Anticoag Therapy) APTT Sodium 138 L Potassium 3.9 Chloride 109 Carbon Dioxide 21 L Anion Gap 8 BUN 12 Creatinine 0.98 Est GFR ( Amer) 98.1 Est GFR (Non-Af Amer) 76.3 BUN/Creatinine Ratio 12.2 Glucose 104 H Lactic Acid Calcium 8.4 L Total Bilirubin AST ALT Alkaline Phosphatase Troponin I C-Reactive Protein 178.27 H Total Protein Albumin Globulin Albumin/Globulin Ratio Urine Color Urine Appearance Urine pH Ur Specific [place] Urine Protein Urine Ketones Urine Blood Urine Nitrate Urine Bilirubin Urine Urobilinogen Ur Leukocyte Esterase Urine WBC (Auto) Urine RBC (Auto) Urine Bacteria Urine Glucose Microbiology: Blood cultures: 1 bottle with Gram negative bacilli Imaging: MRI Thoracic Spine 11/08/17: T6-T7 degenerative changes, differential of osteoarthritis, cannot rule out osteomyelitis/discitis. Assessement and Plan: 66 yo M w/ pmhx BPH ( no recent instrumentation), degenerative disc disease of lumbar spine ( L4-S1), IBS, HCV ( undetectable VL) presents with thoracic back pain. Found with gram negative bactermia, high CRP, chills, paraspinal thoracic spine tenderness extending from T6-T9. MRI notable for of T6-T7 thoracic spine abnormalities highly suspicious for osteomyelitis/discitis given clinical picture. Source may be prostate or oropharynx per history. -TTE to rule out endocarditis -continued for empiric gram negative coverage w/ cefipime -follow blood cultures speciation -will likely need 8 weeks IV antibiotic therapy -daily blood cultures Discussed and examined with Attending Dr. Jh Mendez Attending cosign pending Infectious Disease Consult Janette Mckinnon MD, PGY2 [facility] Resident <Andrea BLANDON,Diego Galvez - Last Filed: 11/09/17 16:15> Consult Consult: Seen, examined, and discussed with Dr Mckinnon; I agree with her full note. T spine back pain, tenderness, elevated CRP, MRI shows T6-7 endplate and disk changes, this is vertebral osteodiskitis. GNR in blood, speciation pending ? KIRILL.
--- NOTE | 2017-11-09 16:23 | PN ---
Hospitalist Progress Note Date of Service: 11/09/17 Pt seen and examined. Meds and labs reviewed. ROS: Denied OZUNA/dizziness, F/C, N/V, CP, SOB, increased cough, sputum production , abd pain, diarrhea, constipation, dysuria, myalgias, arthralgias, throat pain , and new skin lesions. The rest of the 14 point ROS are unremarkable. PHYSICAL EXAM: GEN APPEARANCE: Awake, not in acute distress HEENT: NC/AT, PERRLA, moist oral mucosa, (-) throat erythema NECK: Soft, supple, (-) cervical LAD, (-)JVD HEART: S1S2 WNL, RRR, No MRG CHEST: CTA, BL, GAE, No W/R/R ABD: Soft, ND/NT, NABS 4x Q EXT: No C/C/E SKIN: Warm to touch PSYCH: No active psychosis, hallucinations, depression, SI/HI ASSESSMENT AND PLAN: #Gram negative bacteremia: -Touched base with ID (Dr. 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 -Daily blood cultures per ID #BPH: -Continue Tamsulosin and Finasteride #Constipation: -D/C Colace and place pt on Senna-Plus #DVT prophylaxis: -Continue heparin #Dispo: -As above -Awaiting speciation and results of repeat daily blood cultures per ID -Awaiting TTE results
--- NOTE | 2017-11-09 18:10 | ECHO ---
Patient: JOSELYN ROSSI [facility] Rec#: [id number] : 1950 Date: 11/09/2017 Age: 66y Height: 170.2 cm / 67.0 in Weight: 71.2 kg / 156.9 lbs Sex: M BSA: 1.8 Room#: 401 Admit Date#: 11/08/2017 Type: Inpatient Referring: Diego Mendez MD Reading: Monroe Minaya MD Family Dentist: Kristel oRme RN RDCS CC: Ambrosio Colon MD Transthoracic Echocardiogram Indication: Bacteremia BP: 137/55 HR: 69 Rhythm: NSR with PACs Findings History: Former smoker, BPH, degenerative disk disease, admitted with thoracic spine pain and positive blood culture Technical Comments: The study quality is fair. The study is technically limited due to the patient's smoking history. Completed at 1715. Left Ventricle: The left ventricular chamber size is normal. Global left ventricular wall motion and contractility are within normal limits. There is normal left ventricular systolic function. The estimated ejection fraction is 55-60%. Normal left ventricular diastolic filling is observed. Left Atrium: The left atrial chamber size is normal. Right Ventricle: The right ventricular cavity size is normal. The right ventricular global systolic function is normal. Right Atrium: The right atrial cavity size is normal. Aortic Valve: The aortic valve structure is not well visualized. The aortic valve is trileaflet. The aortic valve leaflets are mildly thickened. There is no evidence of aortic regurgitation. There is no evidence of aortic stenosis. Mitral Valve: The mitral valve leaflets are mildly thickened. There is mild to moderate mitral regurgitation. Tricuspid Valve: The tricuspid valve leaflets are normal. There is trace tricuspid regurgitation. No pulmonary hypertension is noted. Pulmonic Valve: The pulmonic valve appears normal. There is a trace pulmonic regurgitation. There is no pulmonic stenosis. Pericardium: There is no significant pericardial effusion. Aorta: There is no dilatation of the ascending aorta. There is no dilatation of the aortic arch. There is no dilation of the aortic root. Pulmonary Artery: The main pulmonary artery is not well visualized. Venous: The inferior vena cava appears normal in size. There is a greater than 50% respiratory change in the inferior vena cava dimension. Conclusions There is normal left ventricular systolic function. The estimated ejection fraction is 55-60%. Global left ventricular wall motion and contractility are within normal limits. Normal cardiac chamber sizes. There is mild to moderate mitral regurgitation. No clear intra-cardiac mass nor vegetation noted on this transthoracic echocardiogram. If clinical concern remains, consider transesophageal echocardiographic imaging for increased sensitivity of intra-cardiac mass or vegetation detection. There is no prior echocardiogram available to compare with at this time. Measurements Name Value Normal Range RVDdMajor (2D) 3.3 cm (2.2 - 4.4) RAd ISD 4CH 4.6 cm (3.4 - 4.9) RA (A4C)W 3.1 cm (2.9 - 4.6) IVSd (2D) 1.1 cm (0.6 - 1) LVPWd (2D) 1 cm (0.6 - 1) LVIDd (2D) 3.8 cm (3.6 - 5.4) LVIDs (2D) 3.1 cm - LV FS (2D) 18 % (25 - 45) Aortic Annulus 1.8 cm (1.4 - 2.6) Ao root diameter (2D) 3.1 cm (2.1 - 3.5) Ascending Ao 3.2 cm (2.1 - 3.4) Aortic arch 2.6 cm (1.8 - 3.4) LA dimension (AP) 2D 3.3 cm (2.3 - 3.8) LAd ISD 4CH 4.4 cm (2.9 - 5.3) LA ISD 4CH W 3.7 cm (2.5 - 4.5) Name Value Normal Range LA ESV SP 4CH (A/L) 41 ml - LA ESV SP 2CH (A/L) 43 ml - LA ESV BP (A/L) 46 ml - LA ESV BP (A/L) index 25.1 ml/m2 - LA ESV SP 4CH (MOD) 32 ml - LA ESV SP 2CH (MOD) 42 ml - Name Value Normal Range MV E-wave Vmax 1.2 m/sec - MV deceleration time 170 msec - MV A-wave Vmax 0.89 m/sec - MV E:A ratio 1.3 ratio - LV septal e' Vmax 0.11 m/sec - LV lateral e' Vmax 0.1 m/sec - LV E:e' septal ratio 10.9 ratio - LV E:e' lateral ratio 12 ratio - Name Value Normal Range AV Vmax 1.4 m/sec - AV VTI 30.5 cm - AV peak gradient 8 mmHg - AV mean gradient 4.5 mmHg - LVOT Vmax 1.4 m/sec - LVOT VTI 24.6 cm - LVOT peak gradient 7.6 mmHg - LVOT mean gradient 3.1 mmHg - BETTY Vmax 0.9 m/sec - Name Value Normal Range TR Vmax 2.5 m/sec - TR peak gradient 25 mmHg - RAP 3 mmHg - RVSP 28 mmHg - IVC diameter 1.9 cm - Name Value Normal Range PV Vmax 0.99 m/sec -
[2017-11-09] MEDS ORDERED: NS 0.9% 1000 ML* 1,000 ML IV SCH (18:15)
[2017-11-09] MEDS ORDERED: Vancomycin(*) 1,000 MG in NS 0.9% 250 ML* 250 ML IVPB ONE (18:45)
[2017-11-09] MEDS ORDERED: Vancomycin per Pharmacy* NOTE FOLLOW UP PRN (21:19)
[2017-11-10] MEDS: Acetaminophen TAB* 325 MG PO PRN ×2 (00:35→10:12)
[2017-11-10] MEDS: Cefepime 2 GM in Dextrose(*) 2 GM/50 ML BAG IV SCH ×3 (05:13→14:44)
[2017-11-10] MEDS: Heparin VIAL(*) 5000 UNITS/ML VIAL (FIVE THOUSAND) SUBCUT SCH ×3 (05:17→21:24)
[2017-11-10] MEDS ORDERED: Vancomycin(*) 1,000 MG in NS 0.9% 250 ML* 250 ML IVPB SCH (06:00)
[2017-11-10 07:50] LABS: ABS Basophils 0 10^3/ul (0-0.2); ABS Eosinophils 0 10^3/ul (0-0.6); ABS Lymphocytes 0.7 10^3/ul (1.0-4.8); ABS Monocytes 0.8 10^3/ul (0-0.8); ABS Neutrophils 5.2 10^3/ul (1.5-7.7); ABS Nucleated RBC 0 10^3/ul; Eosinophil % 0.5 % (0-6); Hematocrit 34 % (42-52); Hemoglobin 11.8 g/dl (14.0-18.0); Lymphocyte % 10.9 % (25-47); Mean Corpuscular HGB Conc 35 g/dl (31-36); Mean Corpuscular Hemoglobin 32 pg (27-31); Mean Corpuscular Volume 90 fL (80-94); Mean Platelet Volume 7.5 um3 (7.4-10.4); Nucleated Red Blood Cells % 0.1; Platelet Count 140 10^3/ul (150-450); Red Blood Count 3.76 10^6/ul (4.0-5.4); Red Cell Distribution Width 13 % (10.5-15); White Blood Count 6.8 10^3/ul (3.5-10.8)
[2017-11-10 08:01] LABS: EGFR Non-African American 76.3 (>60)
[2017-11-10] MEDS ORDERED: Senna/Docusate (NF) TAB PO SCH (09:00)
[2017-11-10] MEDS: Cyanocobalamin TAB* 500 MCG PO SCH (09:50)
[2017-11-10] MEDS: Tamsulosin CAP* 0.4 MG PO SCH (09:50)
[2017-11-10] MEDS: Finasteride TAB* 5 MG PO SCH (09:50)
[2017-11-10] MEDS: Thiamine TAB* 100 MG TAB PO SCH (09:50)
[2017-11-10] MEDS: Docusate CAP* 100 MG PO SCH (09:51)
[2017-11-10] MEDS: Pyridoxine TAB* 50 MG PO SCH (09:51)
[2017-11-10] MEDS: Senna TAB PO SCH (09:51)
--- NOTE | 2017-11-10 14:17 | PN ---
<Janette Mckinnon - Last Filed: 11/10/17 15:00> Infectious Disease Note Date of Evaluation: 11/10/17 SOAP: Subjective: Date of Service: 11/10/17 Interval History: had 3 episodes of loose stool overnight. Denies fever, chills , night sweats. Continues to have thoracic back pain intermittently. Objective: Vital Signs Temp Pulse Resp BP Pulse Ox 36.9 C 59 16 121/56 98 11/10/17 11:39 11/10/17 11:39 11/10/17 11:39 11/10/17 11:39 11/10/17 11:39 Physical Exam: Gen: laying supine in bed, in nad HEENT: peerl, clear sclera, moist oral mucosa, poor oral dentition Neck: no jvd, no cervical lymphadenopathy Heart: s1s2 audible, no g/m/r Lungs: ctab no w/r/r Abdomen: distended, non-tender, hypoactive bowel sounds Back: thoracic paraspinal tenderness near T6-T9 Extremities: warm, no edema Neuro: no focal neuro deficits Active Medications: Acetaminophen (Tylenol Tab*) 650 mg PO Q4H PRN PRN Reason: FEVER/PAIN Last Admin: 11/10/17 10:12 Dose: 650 mg Cyanocobalamin (Vitamin B12 Tab*) 500 mcg PO DAILY [facility] Last Admin: 11/10/17 09:50 Dose: 500 mcg Cyclobenzaprine HCl (Flexeril Tab*) 10 mg PO TID PRN PRN Reason: SPASMS Docusate Sodium (Colace Cap*) 100 mg PO DAILY [facility] Last Admin: 11/10/17 09:51 Dose: Not Given Finasteride (Proscar Tab*) 5 mg PO DAILY [facility] Last Admin: 11/10/17 09:50 Dose: 5 mg Heparin Sodium (Porcine) (Heparin Vial(*)) 5,000 units SUBCUT Q8HR [facility] Last Admin: 11/10/17 14:36 Dose: 5,000 units Cefepime HCl (Maxipime 2 Gm In Dextrose Duplex (*)) 2 gm in 50 mls @ 100 mls/ hr IV Q8H [facility] Last Admin: 11/10/17 05:13 Dose: 100 mls/hr Sodium Chloride (Ns 0.9% 1000 Ml*) 1,000 mls @ 110 mls/hr IV .PER RATE [facility] Magnesium Hydroxide (Milk Of Magnanthony Liq*) 30 ml PO Q6H PRN PRN Reason: CONSTIPATION Last Admin: 11/09/17 09:26 Dose: 30 ml Morphine Sulfate (Morphine Vial*) 2 mg IV Q4H PRN PRN Reason: PAIN - SEVERE Ondansetron HCl (Zofran 40 Mg Vial*) 4 mg IV Q6H PRN PRN Reason: NAUSEA Oxycodone/Acetaminophen (Percocet 5/325 Tab*) 2 tab PO Q6H PRN PRN Reason: PAIN - MODERATE TO SEVERE Oxycodone/Acetaminophen (Percocet 5/325 Tab*) 1 tab PO Q4H PRN PRN Reason: PAIN - MILD TO MODERATE Pharmacy Consult (Vancomycin Per Pharmacy*) 1 note FOLLOW UP . PRN PRN Reason: PER PROTOCOL Pharmacy Profile Note (Vancomycin Trough Check) 1 note FOLLOW UP 0530 ONE Stop: 11/11/17 05:31 Polyethylene Glycol/Electrolytes (Miralax*) 17 gm PO DAILY PRN PRN Reason: CONSTIPATION Last Admin: 11/09/17 09:26 Dose: 17 gm Pyridoxine HCl (Vitamin B6 Tab*) 100 mg PO DAILY [facility] Last Admin: 11/10/17 09:51 Dose: 100 mg Senna (Senokot Tab*) 2 tab PO DAILY [facility] Last Admin: 11/10/17 09:51 Dose: Not Given Tamsulosin HCl (Flomax Cap*) 0.8 mg PO DAILY [facility] Last Admin: 11/10/17 09:50 Dose: 0.8 mg Thiamine HCl (Vitamin B-1 Tab*) 100 mg PO DAILY [facility] Last Admin: 11/10/17 09:50 Dose: 100 mg Labs: Laboratory Results - last 24 hr 11/10/17 11/10/17 11/10/17 07:38 07:38 07:38 WBC 6.8 RBC 3.76 L Hgb 11.8 L Hct 34 L MCV 90 MCH 32 H MCHC 35 RDW 13 Plt Count 140 L MPV 7.5 Neut % (Auto) 75.9 Lymph % (Auto) 10.9 L [place]aden % (Auto) 12.2 H Eos % (Auto) 0.5 Baso % (Auto) 0.5 Absolute Neuts (auto) 5.2 Absolute Lymphs (auto) 0.7 L Absolute Monos (auto) 0.8 Absolute Eos (auto) 0 Absolute Basos (auto) 0 Absolute Nucleated RBC 0 Nucleated RBC % 0.1 Sodium 136 L Potassium 3.9 Chloride 111 Carbon Dioxide 21 L Anion Gap 4 BUN 16 Creatinine 0.98 Est GFR ( Amer) 98.1 Est GFR (Non-Af Amer) 76.3 BUN/Creatinine Ratio 16.3 Glucose 108 H Calcium 8.2 L Magnesium 2.2 Total Bilirubin 0.40 AST 18 ALT 16 Alkaline Phosphatase 40 C-Reactive Protein 139.96 H Total Protein 5.6 L Albumin 2.8 L Globulin 2.8 Albumin/Globulin Ratio 1.0 Vancomycin Peak 29.3 Vancomycin Trough Cancelled Microbiology: 11/07/17 Blood Culture : + Niesseria Elongata 11/08/17 Blood Culture: + Strep Sanguis 11/10/17 Stool : C. Difficile NEGATIVE Imagin11/08/17 MRI Thoracic Spine: T6-T7 endplate and disk changes Assessment: 66 yo M with pmhx BPH ( no recent instrumentation), degenerative disk disease of lumbar spine ( L4-S1), HCV (undetectable viral load) presented with thoracic back pain and associated chills and fever 2/2 gram negative bacteremia. Now positive for niesseria elongata and strep sanguis both oral stephan organisms likley seeding from recent dental cleaning outpatient. Improving CRP and resolved chills/fever. Plan: Can narrow antibiotics from Cefipime to Ceftriaxone No clinical indication for KATELYN given max antibiotic course will be pursued IV antibiotic course of 8 weeks Examined and discussed with Attending Dr. Jh Mendez Cosigned attending addendum pending Infectious Disease Consult Followup Note Janette Mckinnon MD, PGY2 [facility] Resident <Andrea BLANDON,Diego Galvez - Last Filed: 11/10/17 15:33> Infectious Disease Note SOAP: Seen, examined, discussed with Dr Mckinnon, I agree with her not above. 1. Vertebral osteodiskitis, T spine; CRP, chills, and pain improving since antibiotics. No vegetation or valve disease on TTE; will have 6-8 weeks IV for spine infection so does not need KATELYN. 2. Polymicrobial bacteremia due to #1; 2nd GN speciation pending; recheck cultures (ordered)
[2017-11-10] MEDS ORDERED: Dicyclomine CAP* 10 MG PO PRN (14:42)
[2017-11-10] MEDS ORDERED: Simethicone TAB* 80 MG TAB.CHEW PO PRN (14:44)
[2017-11-10] MEDS: NS 0.9% 1000 ML* 1,000 ML IV SCH ×2 (14:48→21:24)
--- NOTE | 2017-11-10 15:11 | PN ---
Hospitalist Progress Note Date of Service: 11/10/17 Pt seen and examined. Meds and labs reviewed. Pt complained of multiple symptoms such as diarrhea, bloating, and mild abdominal distention. ROS: Diarrhea, bloating, and mild abdominal distention. Denied OZUNA/dizziness, F /C, N/V, CP, SOB, increased cough, sputum production, abd painconstipation, dysuria, myalgias, arthralgias, throat pain, and new skin lesions. The rest of the 14 point ROS are unremarkable. PHYSICAL EXAM: GEN APPEARANCE: Awake, not in acute distress HEENT: NC/AT, PERRLA, moist oral mucosa, (-) throat erythema NECK: Soft, supple, (-) cervical LAD, (-)JVD HEART: S1S2 WNL, RRR, No MRG CHEST: CTA, BL, GAE, No W/R/R ABD: Soft, Slightly distended and tympanitic in the anterolateral portions of abd/NT, NABS 4x Q EXT: No C/C/E SKIN: Warm to touch PSYCH: No active psychosis, hallucinations, depression, SI/HI ASSESSMENT AND PLAN: #Gram negative bacteremia: - Neisseria genera (yet to be speciated) found on blood culture drawn on 11/07/17 -Repeat blood culture on 11/08 so far shows no growth x 1 D -TTE shows EF of 55-60% without any evidence of vegetations -Given pt has not had any recent fevers or chills, with continued normal white count, will continue to observe if any of the repeat cultures would be positive ; if symptomatic and high suspicion for endocarditis, consider KATELYN -Touched base with Dr. Glaser and mentions that KATELYN maybe considered but will not change his management at this time, hence will continue to use [place] Criteria to determine any future benefit. Endocarditis alone should be treated for 6 wks IV Abx while Spine osteomyelitis 6-[address] Glaser. Appreciate his thoughts -Will D/C Cefepime and place on Ceftriaxone per ID reccomendations today -Daily blood cultures per ID #Abdominal distention/bloating: -Likely due to pts known IBS -Will place pt on PRN Simethicone for bloating and will start pt on low dose Bentyl for IBS -Pt ruled out for C diff this AM during my rounds -Obtain AXR #BPH: -Continue Tamsulosin and Finasteride #Constipation/Diarrhea: -Continue Senna-Plus -Mentions that IBS is usually constipation predominant, hence, the acute diarrhea maybe an direct affect of antibiotic therapy on top of known IBS; C. diff (-) #DVT prophylaxis: -Continue heparin #Dispo: -As above -Awaiting Sensitivity data
--- NOTE | 2017-11-10 15:42 | RAD ---
Indication: Bloating and distention. Flat and upright views of the abdomen demonstrates air distended colon. No dilated loops of bowel are noted. No definite bowel obstruction is noted. Colonic ileus is not excluded. Organ silhouettes psoas margins are unremarkable. IMPRESSION: Air distended colon without evidence of abnormal dilatation of small bowel.
[2017-11-10] MEDS: Dicyclomine CAP* 10 MG PO SCH ×2 (16:55→21:26)
[2017-11-10] MEDS ORDERED: Ibuprofen TAB* 200 MG PO PRN (17:07)
[2017-11-10] MEDS: Simethicone TAB* 80 MG TAB.CHEW PO PRN (21:23)
[2017-11-11] MEDS ORDERED: Diltiazem IV* 5 MG/ML 5 ML VIAL (for loading dose/IV Push) (25 MG) IV SLOW PU ONE (00:03)
--- NOTE | 2017-11-11 00:09 | PN ---
Progress Note - Progress Note Date of Service: 11/11/17 Note: Nursing reports irregular rhythm confirmed to be AFIB/RVR on ECG. Transfer to 4 S. Give 20mg IV diltiazem x1. Heparin 5000 units SQ given at 2200. Will initiate a no initial bolus GTT.
[2017-11-11] MEDS: traZODone TAB* 50 MG TAB PO PRN ×2 (01:16→22:40)
[2017-11-11 01:18] LABS: ABS Basophils 0 10^3/ul (0-0.2); ABS Eosinophils 0.1 10^3/ul (0-0.6); ABS Lymphocytes 1.2 10^3/ul (1.0-4.8); ABS Monocytes 0.9 10^3/ul (0-0.8); ABS Neutrophils 5.6 10^3/ul (1.5-7.7); ABS Nucleated RBC 0 10^3/ul; Eosinophil % 1.3 % (0-6); Hematocrit 35 % (42-52); Hemoglobin 12.1 g/dl (14.0-18.0); Lymphocyte % 15.3 % (25-47); Mean Corpuscular HGB Conc 35 g/dl (31-36); Mean Corpuscular Hemoglobin 31 pg (27-31); Mean Corpuscular Volume 90 fL (80-94); Nucleated Red Blood Cells % 0; Platelet Count 154 10^3/ul (150-450); Red Blood Count 3.86 10^6/ul (4.0-5.4); Red Cell Distribution Width 13 % (10.5-15); White Blood Count 7.8 10^3/ul (3.5-10.8)
[2017-11-11] MEDS: Heparin DRIP 25,000 UNITS(*) 25,000 UNITS/500 ML BAG IVPB SCH ×2 (01:18→23:48)
[2017-11-11 01:34] LABS: EGFR Non-African American 87.5 (>60)
[2017-11-11] MEDS ORDERED: Vancomycin Trough Check NOTE FOLLOW UP ONE (05:30)
[2017-11-11] MEDS: Acetaminophen TAB* 325 MG PO PRN ×2 (07:08→14:25)
[2017-11-11 07:49] LABS: ABS Basophils 0 10^3/ul (0-0.2); ABS Eosinophils 0.1 10^3/ul (0-0.6); ABS Monocytes 0.7 10^3/ul (0-0.8); ABS Neutrophils 5.1 10^3/ul (1.5-7.7); ABS Nucleated RBC 0 10^3/ul; Hematocrit 37 % (42-52); Hemoglobin 12.8 g/dl (14.0-18.0); Lymphocyte % 14.4 % (25-47); Mean Corpuscular HGB Conc 35 g/dl (31-36); Mean Corpuscular Hemoglobin 31 pg (27-31); Mean Corpuscular Volume 90 fL (80-94); Mean Platelet Volume 7.5 um3 (7.4-10.4); Nucleated Red Blood Cells % 0.1; Platelet Count 155 10^3/ul (150-450); Red Cell Distribution Width 13 % (10.5-15); White Blood Count 6.9 10^3/ul (3.5-10.8)
[2017-11-11 08:06] LABS: EGFR Non-African American 89.9 (>60)
[2017-11-11] MEDS: cefTRIAXone(*) 2 GM in NS 0.9% 100 ML* 100 ML IVPB SCH (08:58)
[2017-11-11] MEDS: NS 0.9% 1000 ML* 1,000 ML IV SCH ×2 (08:58→15:24)
[2017-11-11] MEDS: Thiamine TAB* 100 MG TAB PO SCH (09:06)
[2017-11-11] MEDS: Cyanocobalamin TAB* 500 MCG PO SCH (09:06)
[2017-11-11] MEDS: Tamsulosin CAP* 0.4 MG PO SCH (09:06)
[2017-11-11] MEDS: Finasteride TAB* 5 MG PO SCH (09:06)
[2017-11-11] MEDS: Dicyclomine CAP* 10 MG PO SCH ×5 (09:06→21:20)
[2017-11-11] MEDS: Pyridoxine TAB* 50 MG PO SCH (09:06)
[2017-11-11] MEDS: Docusate CAP* 100 MG PO SCH ×2 (09:09→10:59)
[2017-11-11] MEDS: Senna TAB PO SCH ×2 (09:11→10:59)
[2017-11-11] MEDS ORDERED: GuaiFENesin DM* 5 ML UDC PO PRN (14:30)
[2017-11-11] MEDS ORDERED: NS 0.9% 500 ML* 500 ML IV ONE (14:33)
[2017-11-11] MEDS ORDERED: Heparin VIAL(*) 5000 UNITS/ML VIAL (FIVE THOUSAND) ONE (14:44)
[2017-11-11] MEDS: Fluticasone NASAL SPRAY 50MCG* 16 gm SPRAY BTL BOTH NARES SCH (15:24)
[2017-11-11] MEDS ORDERED: Metoprolol Tartrate IV* 1 MG/ML 5 ML VIAL IV PRN (18:53)
[2017-11-11] MEDS ORDERED: Digoxin IV* 0.5 MG/2 ML AMP (0.25 MG/ML) IV ONE (19:00)
[2017-11-11] MEDS ORDERED: Iohexol 350* (CONTRAST) 500 ML MDV IV ONE (19:04)
--- NOTE | 2017-11-11 19:05 | PN ---
Hospitalist Progress Note Date of Service: 11/11/17 Pt seen and examined. Meds and labs reviewed. Pt was seen by Dr. Dawn last night due to new onset A. fib. Pt was transferred to after being given Diltiazem. Spoke with pt and today about plan described below. ROS: Tachycardia. Denied OZUNA/dizziness, F/C, N/V, CP, SOB, increased cough, sputum production, abd pain, diarrhea, constipation, dysuria, myalgias, arthralgias, throat pain, and new skin lesions. The rest of the 14 point ROS are unremarkable. PHYSICAL EXAM: GEN APPEARANCE: Awake, not in acute distress HEENT: NC/AT, PERRLA, moist oral mucosa, (-) throat erythema NECK: Soft, supple, (-) cervical LAD, (-)JVD HEART: S1S2 irregularly, irregular, RRR, No MRG CHEST: CTA, BL, GAE, No W/R/R ABD: Soft, ND/NT, NABS 4x Q EXT: No C/C/E SKIN: Warm to touch PSYCH: No active psychosis, hallucinations, depression, SI/HI ASSESSMENT AND PLAN: #New onset A.fib: -Given elevated D-dimer (which could be due to known infectious process) along with new onset A.fib that has not resolved with hydration and one time dose of Diltiazem and observation, will continue IVF after bolus and send pt for CTA of chest to evaluate for PE -Will load pt with Dig and place on PRN Lopressor for now given he does have reasons for A. fib other than possible PE, but will have low threshold to place pt on Diltiazem gtt #Gram negative bacteremia: - Neisseria genera (yet to be speciated) found on blood culture drawn on 11/07 -Repeat blood culture on 11/08 so shows Neisseria spp and S. sanguis, pansensitive to Abx tested except for Azithromycin -TTE shows EF of 55-60% without any evidence of vegetations -Touched base with Dr. Glaser and mentions that KATELYN maybe considered but will not change his management at this time, hence will continue to use [place] Criteria to determine any future benefit. Endocarditis alone should be treated for 6 wks IV Abx while Spine osteomyelitis 6-[address] Glaser. Appreciate his thoughts -Continue Rocephin -Daily blood cultures per ID #Abdominal distention/bloating: -Likely due to pts known IBS -Will place pt on PRN Simethicone for bloating and will start pt on low dose Bentyl for IBS -Pt ruled out for C diff -AXR: Shows distended colon without evidence of abd dilatation #BPH: -Continue Tamsulosin and Finasteride #Constipation/Diarrhea: -Continue Senna-Plus -Mentions that IBS is usually constipation predominant, hence, the acute diarrhea maybe an direct affect of antibiotic therapy on top of known IBS; C. diff (-) #DVT prophylaxis: -Continue heparin #Dispo: -As above -Awaiting Sensitivity data
[2017-11-11] MEDS: Digoxin IV* 0.5 MG/2 ML AMP (0.25 MG/ML) IV SCH ×2 (19:22→19:23)
[2017-11-11] MEDS ORDERED: Saline NASAL SPRAY 0.65%* BTL BOTH NARES PRN (22:56)
[2017-11-12] MEDS: NS 0.9% 1000 ML* 1,000 ML IV SCH (00:04)
[2017-11-12 00:35] LABS: ABS Basophils 0 10^3/ul (0-0.2); ABS Eosinophils 0.1 10^3/ul (0-0.6); ABS Lymphocytes 1.3 10^3/ul (1.0-4.8); ABS Monocytes 0.8 10^3/ul (0-0.8); ABS Neutrophils 8.5 10^3/ul (1.5-7.7); ABS Nucleated RBC 0 10^3/ul; Eosinophil % 0.8 % (0-6); Hematocrit 36 % (42-52); Hemoglobin 12.5 g/dl (14.0-18.0); Lymphocyte % 12.2 % (25-47); Mean Corpuscular HGB Conc 35 g/dl (31-36); Mean Corpuscular Hemoglobin 31 pg (27-31); Mean Corpuscular Volume 90 fL (80-94); Mean Platelet Volume 7.7 um3 (7.4-10.4); Nucleated Red Blood Cells % 0; Platelet Count 176 10^3/ul (150-450); Red Blood Count 3.98 10^6/ul (4.0-5.4); Red Cell Distribution Width 13 % (10.5-15); White Blood Count 10.7 10^3/ul (3.5-10.8)
[2017-11-12 00:50] LABS: EGFR Non-African American 100.8 (>60)
[2017-11-12] MEDS ORDERED: Digoxin IV* 0.5 MG/2 ML AMP (0.25 MG/ML) IV SLOW PU SCH (01:00)
[2017-11-12] MEDS: Digoxin IV* 0.5 MG/2 ML AMP (0.25 MG/ML) IV SCH ×2 (01:24→06:07)
[2017-11-12 05:13] LABS: Hematocrit 35 % (42-52); Hemoglobin 12.1 g/dl (14.0-18.0); Mean Corpuscular HGB Conc 35 g/dl (31-36); Mean Corpuscular Hemoglobin 31 pg (27-31); Mean Corpuscular Volume 89 fL (80-94); Mean Platelet Volume 7.9 um3 (7.4-10.4); Platelet Count 176 10^3/ul (150-450); Red Blood Count 3.87 10^6/ul (4.0-5.4); Red Cell Distribution Width 13 % (10.5-15); White Blood Count 9.2 10^3/ul (3.5-10.8)
[2017-11-12 05:32] LABS: EGFR Non-African American 96.4 (>60)
[2017-11-12] MEDS: Acetaminophen TAB* 325 MG PO PRN ×2 (06:20→22:12)
[2017-11-12] MEDS ORDERED: Potassium Chlor TAB* 20 MEQ TAB.ER PO STA (07:45)
[2017-11-12] MEDS: cefTRIAXone(*) 2 GM in NS 0.9% 100 ML* 100 ML IVPB SCH (08:47)
[2017-11-12] MEDS: Fluticasone NASAL SPRAY 50MCG* 16 gm SPRAY BTL BOTH NARES SCH (08:48)
[2017-11-12] MEDS: Cyanocobalamin TAB* 500 MCG PO SCH (08:49)
[2017-11-12] MEDS: Senna TAB PO SCH (08:50)
[2017-11-12] MEDS: Dicyclomine CAP* 10 MG PO SCH (08:50)
[2017-11-12] MEDS: Docusate CAP* 100 MG PO SCH (08:50)
[2017-11-12] MEDS: Tamsulosin CAP* 0.4 MG PO SCH (08:51)
[2017-11-12] MEDS: Pyridoxine TAB* 50 MG PO SCH (08:51)
[2017-11-12] MEDS: Finasteride TAB* 5 MG PO SCH (08:51)
[2017-11-12] MEDS: Thiamine TAB* 100 MG TAB PO SCH (08:52)
--- NOTE | 2017-11-12 16:49 | PN ---
Hospitalist Progress Note Date of Service: 11/12/17 Pt seen and examined. Meds and labs reviewed. CTA of chest ordered yesterday could not be done given his allergies to contrast. He was also given Digoxin loading and fluid boluses which controlled his A. fib. Since CTA could not be obtained, pt was placed on heparin gtt until PE could be ruled out. V/Q scan ordered today and will await result when done tomorrow. Pt also clarified that although he was thought to have IBS, he really has lactose intolerance since his bloating and diarrhea resolved without lactose as outpatient. Will D/C Dicyclomine but will keep Simethicone. ROS: Denied OZUNA/dizziness, F/C, N/V, CP, SOB, increased cough, sputum production , abd pain, diarrhea, constipation, dysuria, myalgias, arthralgias, throat pain , and new skin lesions. The rest of the 14 point ROS are unremarkable. PHYSICAL EXAM: GEN APPEARANCE: Awake, not in acute distress HEENT: NC/AT, PERRLA, moist oral mucosa, (-) throat erythema NECK: Soft, supple, (-) cervical LAD, (-)JVD HEART: S1S2 WNL, RRR, No MRG CHEST: CTA, BL, GAE, No W/R/R ABD: Soft, ND/NT, NABS 4x Q EXT: No C/C/E SKIN: Warm to touch PSYCH: No active psychosis, hallucinations, depression, SI/HI ASSESSMENT AND PLAN: #New onset A.fib: -Given elevated D-dimer (which could be due to known infectious process) along with new onset A.fib that has not resolved with hydration and one time dose of -Will start pt on low dose Digoxin PO post loading -Will wait for result of V/Q scan -Continue heparin gtt #Gram negative bacteremia: - Neisseria elongata found on blood culture drawn on 11/07/17--awaiting sensitivities -Repeat blood culture on 11/08 so shows Neisseria elongata and S. sanguis, pansensitive (S. sanguis) to Abx tested except for Azithromycin -TTE shows EF of 55-60% without any evidence of vegetations -Touched base with Dr. Glaser and mentions that KATELYN maybe considered but will not change his management at this time, hence will continue to use [place] Criteria to determine any future benefit. Endocarditis alone should be treated for 6 wks IV Abx while Spine osteomyelitis 6-[address] Glaser. Appreciate his thoughts -Continue Rocephin -Daily blood cultures per ID #Abdominal distention/bloating: -Will place pt on PRN Simethicone for bloating -D/C Bentyl given he denies he has IBS -Pt ruled out for C diff -AXR: Shows distended colon without evidence of abd dilatation #BPH: -Continue Tamsulosin and Finasteride #Constipation/Diarrhea: -Continue Senna-Plus #DVT prophylaxis: -Continue heparin #Dispo: -As above -Awaiting Sensitivity data -Awaiting V/Q scan data
[2017-11-12] MEDS: Digoxin TAB* 0.125 MG PO SCH (17:11)
[2017-11-12] MEDS: Simethicone TAB* 80 MG TAB.CHEW PO PRN (17:24)
[2017-11-12] MEDS ORDERED: Calcium Carbonate CHEW TAB* 500 MG (TUMS) PO PRN (21:48)
[2017-11-12] MEDS: traZODone TAB* 50 MG TAB PO PRN (22:12)
[2017-11-13 01:14] LABS: ABS Basophils 0 10^3/ul (0-0.2); ABS Eosinophils 0.1 10^3/ul (0-0.6); ABS Lymphocytes 1.9 10^3/ul (1.0-4.8); ABS Monocytes 0.8 10^3/ul (0-0.8); ABS Neutrophils 5.8 10^3/ul (1.5-7.7); ABS Nucleated RBC 0 10^3/ul; Eosinophil % 1.4 % (0-6); Hematocrit 36 % (42-52); Hemoglobin 12.3 g/dl (14.0-18.0); Lymphocyte % 22.2 % (25-47); Mean Corpuscular HGB Conc 35 g/dl (31-36); Mean Corpuscular Hemoglobin 31 pg (27-31); Mean Corpuscular Volume 89 fL (80-94); Mean Platelet Volume 7.4 um3 (7.4-10.4); Nucleated Red Blood Cells % 0; Platelet Count 193 10^3/ul (150-450); Red Blood Count 3.99 10^6/ul (4.0-5.4); Red Cell Distribution Width 13 % (10.5-15); White Blood Count 8.7 10^3/ul (3.5-10.8)
[2017-11-13 01:36] LABS: EGFR Non-African American 87.5 (>60)
[2017-11-13] MEDS: Heparin DRIP 25,000 UNITS(*) 25,000 UNITS/500 ML BAG IVPB SCH (03:18)
[2017-11-13 07:00] LABS: EGFR Non-African American 87.5 (>60)
[2017-11-13 07:17] LABS: Hematocrit 39 % (42-52); Hemoglobin 13.4 g/dl (14.0-18.0); Mean Corpuscular HGB Conc 34 g/dl (31-36); Mean Corpuscular Hemoglobin 31 pg (27-31); Mean Corpuscular Volume 89 fL (80-94); Platelet Count 225 10^3/ul (150-450); Red Blood Count 4.36 10^6/ul (4.0-5.4); Red Cell Distribution Width 13 % (10.5-15); White Blood Count 7.5 10^3/ul (3.5-10.8)
[2017-11-13 07:52] LABS: ABS Basophils 0 10^3/ul (0-0.2); ABS Eosinophils 0.1 10^3/ul (0-0.6); ABS Lymphocytes 1.8 10^3/ul (1.0-4.8); ABS Monocytes 0.7 10^3/ul (0-0.8); ABS Neutrophils 4.9 10^3/ul (1.5-7.7); ABS Nucleated RBC 0 10^3/ul; Eosinophil % 1.8 % (0-6); Lymphocyte % 23.8 % (25-47); Nucleated Red Blood Cells % 0.1
--- NOTE | 2017-11-13 08:17 | RAD ---
HISTORY: Pulmonary embolism COMPARISONS: November 08, 2014 VIEWS: 4: Frontal dual-energy and lateral views of the chest. FINDINGS: CARDIOMEDIASTINAL SILHOUETTE: The cardiomediastinal silhouette is normal. FRANCES: The frances are normal. PLEURA: There is a small left pleural effusion. LUNG PARENCHYMA: The lungs are clear. ABDOMEN: The upper abdomen is clear. There is no subphrenic gas. BONES AND SOFT TISSUES: No bone or soft tissue abnormalities are noted. OTHER: None. IMPRESSION: SMALL LEFT PLEURAL EFFUSION.
[2017-11-13] MEDS: Thiamine TAB* 100 MG TAB PO SCH (08:18)
[2017-11-13] MEDS: Senna TAB PO SCH ×2 (08:18→08:26)
[2017-11-13] MEDS: cefTRIAXone(*) 2 GM in NS 0.9% 100 ML* 100 ML IVPB SCH (08:18)
[2017-11-13] MEDS: Tamsulosin CAP* 0.4 MG PO SCH (08:18)
[2017-11-13] MEDS: Pyridoxine TAB* 50 MG PO SCH (08:19)
[2017-11-13] MEDS: Cyanocobalamin TAB* 500 MCG PO SCH (08:19)
[2017-11-13] MEDS: Finasteride TAB* 5 MG PO SCH (08:19)
[2017-11-13] MEDS: Fluticasone NASAL SPRAY 50MCG* 16 gm SPRAY BTL BOTH NARES SCH (08:19)
[2017-11-13] MEDS: Docusate CAP* 100 MG PO SCH (08:19)
[2017-11-13] MEDS: Simethicone TAB* 80 MG TAB.CHEW PO PRN (08:49)
--- NOTE | 2017-11-13 08:49 | RAD ---
INDICATION: Atrial fibrillation. Elevated d-dimer COMPARISON: Chest x-ray November 13, 2017 TECHNIQUE: Following the administration of 10.7 millicuries of xenon gas, anterior and posterior deep breath, equilibrium, and washout phase imaging was performed. Following the intravenous administration of 6.1 millicuries of technetium 99m, MAA, anterior, posterior, lateral, and oblique imaging of the chest was performed. FINDINGS: Ventilation images show normal ventilation. The perfusion images show no segmentally absent areas of ventilation/perfusion mismatch. The probability of acute pulmonary embolus is low. IMPRESSION: LOW PROBABILITY FOR ACUTE PULMONARY EMBOLUS.
[2017-11-13] MEDS ORDERED: Senna/Docusate (NF) TAB PO SCH (09:00)
[2017-11-13] MEDS: Acetaminophen TAB* 325 MG PO PRN ×2 (09:46→19:53)
--- NOTE | 2017-11-13 12:47 | PN ---
<Janette Mckinnon - Last Filed: 11/13/17 12:49> Infectious Disease Note Date of Evaluation: 11/13/17 SOAP: Subjective: Date of Service: 11/13/17 Interval History: develop afib over the weekend and was placed on heparin gtt and had V/Q scan. Feeling better. Objective: Vital Signs Temp Pulse Resp BP Pulse Ox 36.8 C 67 20 149/62 99 11/13/17 08:01 11/13/17 08:01 11/13/17 08:01 11/13/17 08:01 11/13/17 08:01 Physical Exam: Gen: laying supine in bed, in nad HEENT: peerl, clear sclera, moist oral mucosa, poor oral dentition Neck: no jvd, no cervical lymphadenopathy Heart: regular rate, s1s2 audible, no g/m/r Lungs: ctab no w/r/r Abdomen: distended, non-tender, hypoactive bowel sounds Back: thoracic paraspinal tenderness near T6-T9 Extremities: warm, no edema Neuro: no focal neuro deficits Active Medications: Acetaminophen (Tylenol Tab*) 650 mg PO Q4H PRN PRN Reason: FEVER/PAIN Last Admin: 11/13/17 09:46 Dose: 650 mg Cyanocobalamin (Vitamin B12 Tab*) 500 mcg PO DAILY COUNT INCLUDES THE [facility] Last Admin: 11/13/17 08:19 Dose: 500 mcg Cyclobenzaprine HCl (Flexeril Tab*) 10 mg PO TID PRN PRN Reason: SPASMS Digoxin (Lanoxin Tab*) 0.125 mg PO 1700 COUNT INCLUDES THE [facility] Last Admin: 11/12/17 17:11 Dose: 0.125 mg Docusate Sodium (Colace Cap*) 100 mg PO DAILY COUNT INCLUDES THE [facility] Last Admin: 11/13/17 08:19 Dose: 100 mg Finasteride (Proscar Tab*) 5 mg PO DAILY COUNT INCLUDES THE [facility] Last Admin: 11/13/17 08:19 Dose: 5 mg Fluticasone Propionate (Flonase Nasal [place] 50mcg*) 2 spray BOTH NARES DAILY COUNT INCLUDES THE [facility] Last Admin: 11/13/17 08:19 Dose: 2 spray Guaifenesin/Dextromethorphan (Robitussin Dm*) 10 ml PO Q6H PRN PRN Reason: COUGH Ceftriaxone Sodium 2 gm/ (Sodium Chloride) 100 mls @ 200 mls/hr IVPB Q24H COUNT INCLUDES THE [facility] Last Admin: 11/13/17 08:18 Dose: 200 mls/hr Ibuprofen (Advil Tab*) 200 mg PO Q6H PRN PRN Reason: PAIN Last Admin: 11/10/17 17:32 Dose: 200 mg Magnesium Hydroxide (Milk Of Magnanthony Liq*) 30 ml PO Q6H PRN PRN Reason: CONSTIPATION Last Admin: 11/09/17 09:26 Dose: 30 ml Metoprolol Tartrate (Lopressor Iv*) 5 mg IV Q6H PRN PRN Reason: HEART RATE/PULSE GREATER THAN: Last Admin: 11/11/17 23:58 Dose: 5 mg Morphine Sulfate (Morphine Vial*) 2 mg IV Q4H PRN PRN Reason: PAIN - SEVERE Ondansetron HCl (Zofran 40 Mg Vial*) 4 mg IV Q6H PRN PRN Reason: NAUSEA Oxycodone/Acetaminophen (Percocet 5/325 Tab*) 2 tab PO Q6H PRN PRN Reason: PAIN - MODERATE TO SEVERE Oxycodone/Acetaminophen (Percocet 5/325 Tab*) 1 tab PO Q4H PRN PRN Reason: PAIN - MILD TO MODERATE Polyethylene Glycol/Electrolytes (Miralax*) 17 gm PO DAILY PRN PRN Reason: CONSTIPATION Last Admin: 11/09/17 09:26 Dose: 17 gm Pyridoxine HCl (Vitamin B6 Tab*) 100 mg PO DAILY COUNT INCLUDES THE [facility] Last Admin: 11/13/17 08:19 Dose: 100 mg Senna (Senokot Tab*) 2 tab PO DAILY COUNT INCLUDES THE [facility] Last Admin: 11/13/17 08:26 Dose: Not Given Simethicone (Mylicon Tab*) 80 mg PO Q5H PRN PRN Reason: Bloating Last Admin: 11/13/17 08:49 Dose: 80 mg Sodium Chloride (Sodium Chloride 0.65% Nasal [place]*) 1 spray BOTH NARES Q4H PRN PRN Reason: CONGESTION Last Admin: 11/11/17 23:22 Dose: 1 admin Tamsulosin HCl (Flomax Cap*) 0.8 mg PO DAILY COUNT INCLUDES THE [facility] Last Admin: 11/13/17 08:18 Dose: 0.8 mg Thiamine HCl (Vitamin B-1 Tab*) 100 mg PO DAILY COUNT INCLUDES THE [facility] Last Admin: 11/13/17 08:18 Dose: 100 mg Trazodone HCl (Desyrel Tab*) 25 mg PO BEDTIME PRN PRN Reason: INSOMNIA Last Admin: 11/12/17 22:12 Dose: 25 mg Laboratory Last Values WBC 7.5 10^3/ul (3.5-10.8) 11/13/17 06:05 RBC 4.36 10^6/ul (4.0-5.4) 11/13/17 06:05 Hgb 13.4 g/dl (14.0-18.0) L 11/13/17 06:05 Hct 39 % (42-52) L 11/13/17 06:05 MCV 89 fL (80-94) 11/13/17 06:05 MCH 31 pg (27-31) 11/13/17 06:05 MCHC 34 g/dl (31-36) 11/13/17 06:05 RDW 13 % (10.5-15) 11/13/17 06:05 Plt Count 225 10^3/ul (150-450) 11/13/17 06:05 MPV 8.0 um3 (7.4-10.4) 11/13/17 06:05 Neut % (Auto) 65.3 % (38-83) 11/13/17 06:05 Lymph % (Auto) 23.8 % (25-47) L 11/13/17 06:05 [place] % (Auto) 8.7 % (0-7) H 11/13/17 06:05 Eos % (Auto) 1.8 % (0-6) 11/13/17 06:05 Baso % (Auto) 0.4 % (0-2) 11/13/17 06:05 Absolute Neuts (auto) 4.9 10^3/ul (1.5-7.7) 11/13/17 06:05 Absolute Lymphs (auto) 1.8 10^3/ul (1.0-4.8) 11/13/17 06:05 Absolute Monos (auto) 0.7 10^3/ul (0-0.8) 11/13/17 06:05 Absolute Eos (auto) 0.1 10^3/ul (0-0.6) 11/13/17 06:05 Absolute Basos (auto) 0 10^3/ul (0-0.2) 11/13/17 06:05 Absolute Nucleated RBC 0 10^3/ul 11/13/17 06:05 Nucleated RBC % 0.1 11/13/17 06:05 ESR 49 mm/Hr (0-40) H 11/08/17 13:35 INR (Anticoag Therapy) 0.97 (0.77-1.02) 11/08/17 13:35 APTT 50.7 seconds (26.0-36.3) H 11/13/17 01:08 D-Dimer, Quantitative 306 ng/mL (Less Than 230) H 11/11/17 14:00 Sodium 139 mmol/L (139-145) 11/13/17 06:05 Potassium 3.5 mmol/L (3.5-5.0) 11/13/17 06:05 Chloride 104 mmol/L (101-111) 11/13/17 06:05 Carbon Dioxide 29 mmol/L (22-32) 11/13/17 06:05 Anion Gap 6 mmol/L (2-11) 11/13/17 06:05 BUN 8 mg/dL (6-24) 11/13/17 06:05 Creatinine 0.87 mg/dL (0.67-1.17) 11/13/17 06:05 Est GFR ( Amer) 112.6 (>60) 11/13/17 06:05 Est GFR (Non-Af Amer) 87.5 (>60) 11/13/17 06:05 BUN/Creatinine Ratio 9.2 (8-20) 11/13/17 06:05 Glucose 99 mg/dL (70-100) 11/13/17 06:05 Lactic Acid 1.0 mmol/L (0.5-2.0) 11/11/17 14:00 Calcium 9.1 mg/dL (8.6-10.3) 11/13/17 06:05 Magnesium 2.2 mg/dL (1.9-2.7) 11/13/17 06:05 Total Bilirubin 0.40 mg/dL (0.2-1.0) 11/13/17 06:05 AST 36 U/L (13-39) 11/13/17 06:05 ALT 48 U/L (7-52) 11/13/17 06:05 Alkaline Phosphatase 54 U/L (34-104) 11/13/17 06:05 Troponin I 0.00 ng/mL (<0.04) 11/08/17 13:35 C-Reactive Protein 139.96 mg/L (< 5.00) H 11/10/17 07:38 Total Protein 6.6 g/dL (6.4-8.9) 11/13/17 06:05 Albumin 3.3 g/dL (3.2-5.2) 11/13/17 06:05 Globulin 3.3 g/dL (2-4) 11/13/17 06:05 Albumin/Globulin Ratio 1.0 (1-3) 11/13/17 06:05 Urine Color Yellow 11/08/17 14:53 Urine Appearance Clear 11/08/17 14:53 Urine pH 6.0 (5-9) 11/08/17 14:53 Ur Specific [place] 1.006 (1.010-1.030) L 11/08/17 14:53 Urine Protein Negative (Negative) 11/08/17 14:53 Urine Ketones Trace (Negative) A 11/08/17 14:53 Urine Blood 2+ (Negative) A 11/08/17 14:53 Urine Nitrate Negative (Negative) 11/08/17 14:53 Urine Bilirubin Negative (Negative) 11/08/17 14:53 Urine Urobilinogen Negative (Negative) 11/08/17 14:53 Ur Leukocyte Esterase Negative (Negative) 11/08/17 14:53 Urine WBC (Auto) Absent (Absent) 11/08/17 14:53 Urine RBC (Auto) 2+(6-10/hpf) (Absent) A 11/08/17 14:53 Urine Bacteria Absent (Absent) 11/08/17 14:53 Urine Glucose Negative (Negative) 11/08/17 14:53 Vancomycin Peak 29.3 mcg/mL 11/10/17 07:38 Vancomycin Trough Cancelled 11/10/17 07:38 Assessment: 66 yo M w/ pmhx BPH ( no recent instrumentation), degenerative disc disease of lumbar spine ( L4-S1), IBS, HCV ( undetectable VL) presents with thoracic back pain. 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 Now with new onset afib. Given absence of prior left atrial abnormality will pursue KATELYN to rule out vegetation irritation of conduction system. Continue with IV antibiotics. Plan: -KATELYN to rule out vegetation -c/w ceftriaxone -c/w empiric heparin -f/u V/Q scan results -c/w telemetry Seen and examined with attending Dr. Mendez attending cosign pending Infectious Disease Consult Janette Mckinnon MD, PGY2 [facility] Resident <Andrea BLANDON,Diego Galvez - Last Filed: 11/14/17 15:53> Infectious Disease Note SOAP: Seen, examined, and discssued with Dr Mckinnon, I agree with her full note
[2017-11-13] MEDS: Lactobacillus Acidophilus* 1 TAB PO SCH (13:39)
[2017-11-13] MEDS: Digoxin TAB* 0.125 MG PO SCH (17:30)
--- NOTE | 2017-11-13 18:13 | PN ---
Hospitalist Progress Note Date of Service: 11/13/17 Pt seen and examined. Meds and labs reviewed. ROS: Denied OZUNA/dizziness, F/C, N/V, CP, SOB, increased cough, sputum production , abd pain, diarrhea, constipation, dysuria, myalgias, arthralgias, throat pain , and new skin lesions. The rest of the 14 point ROS are unremarkable. 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 sanguis, pansensitive (S. sanguis) to Abx tested except for Azithromycin -TTE shows EF of 55-60% without any evidence of vegetations -KATELYN as discussed -Continue Rocephin -Daily blood cultures per ID #Abdominal distention/bloating: -Continue PRN Simethicone for bloating -Pt ruled out for C diff -AXR: Shows distended colon without evidence of abd dilatation #BPH: -Continue Tamsulosin and Finasteride #Constipation/Diarrhea: -Continue Senna-Plus #DVT prophylaxis: -Continue heparin #Dispo: -As above -Await KATELYN result
[2017-11-13] MEDS: traZODone TAB* 50 MG TAB PO PRN (23:21)
[2017-11-14] MEDS: Acetaminophen TAB* 325 MG PO PRN (04:37)
[2017-11-14] MEDS: Fluticasone NASAL SPRAY 50MCG* 16 gm SPRAY BTL BOTH NARES SCH ×2 (05:58→07:17)
[2017-11-14 07:42] LABS: Hematocrit 38 % (42-52); Hemoglobin 13.5 g/dl (14.0-18.0); Mean Corpuscular HGB Conc 36 g/dl (31-36); Mean Corpuscular Hemoglobin 32 pg (27-31); Mean Corpuscular Volume 88 fL (80-94); Mean Platelet Volume 8.2 um3 (7.4-10.4); Platelet Count 249 10^3/ul (150-450); Red Blood Count 4.29 10^6/ul (4.0-5.4); Red Cell Distribution Width 13 % (10.5-15); White Blood Count 8.2 10^3/ul (3.5-10.8)
[2017-11-14 08:00] LABS: EGFR Non-African American 96.4 (>60)
[2017-11-14] MEDS ORDERED: fentaNYL* 50 MCG/ML 2 ML VIAL (100 MCG VIAL) ONE (09:16)
[2017-11-14] MEDS ORDERED: Naloxone* 0.4 MG/ML 1 ML VIAL ONE (09:16)
[2017-11-14] MEDS ORDERED: Flumazenil* 0.1 MG/ML 5 ML MDV ONE (09:16)
[2017-11-14] MEDS ORDERED: Lidocaine 2% VISCOUS* 15 ML UDC ONE (09:17)
[2017-11-14] MEDS ORDERED: Midazolam* 1 MG/ML 10 ML VIAL (10 MG) ONE (09:17)
[2017-11-14] MEDS ORDERED: diPHENhydraMINE IV* 50 MG/ML 1 ml VIAL (BENADRYL) ONE (11:21)
--- NOTE | 2017-11-14 13:00 | TEE ---
Patient: JOSELYN ROSSI [facility] Rec#: [id number] : 1950 Date: 11/14/2017 Age: 66y Height: 0 cm / .0 in Weight: 0 kg / .0 lbs Sex: M BSA: 1.82 Room#: 441 Admit Date#: 11/08/2017 Type: Inpatient Referring: Aníbal Burton Reading: Jesse Braga DO [employer] Meter Installer Helper: Katy Starks RDCS,RDMS [employer] Meter Installer Helper: CC: Ambrosio Colon MD Transesophageal Echocardiogram Indication: Bacteremia BP: 162/87 Rhythm: NSR Findings History: Gram negative bacteremia, new onset AFIB, former smoker Technical Comments: The study quality is good. Left Ventricle: The left ventricular chamber size is normal. There is no left ventricular hypertrophy. There is normal left ventricular systolic function. The estimated ejection fraction is 55-60%. Normal left ventricular diastolic filling is observed. Left Atrium: The left atrial chamber size is normal. There is no thrombus visualized in the left atrial appendage. Right Ventricle: The right ventricular chamber size and systolic function are within normal limits. Right Atrium: The right atrial cavity size is normal. A patent foramen ovale is demonstrated by agitated contrast. Aortic Valve: The aortic valve is trileaflet. There is no evidence of aortic valve thickening. Systolic excursion of the aortic valve is normal. There is a trace of aortic regurgitation. There is no evidence of aortic stenosis. There is no aortic vegetation present. Mitral Valve: The mitral valve leaflets appear normal. The mitral valve leaflets are mildly thickened.with very small mobile fibrinous- strands attached to the mitral valve leaflets. In the setting of positive blood cultures, this would be consistent with infectious endocarditis. There is mild mitral regurgitation. There is no evidence of mitral stenosis. Tricuspid Valve: The tricuspid valve leaflets are normal. There is trace tricuspid regurgitation. No vegetation is observed on the tricuspid valve. Pulmonic Valve: The pulmonic valve appears normal. There is a trace pulmonic regurgitation. No vegetation is observed on the pulmonic valve. Pericardium: There is no significant pericardial effusion. Aorta: The aortic root appears normal. Pulmonary Artery: The main pulmonary artery appears normal. Venous: The inferior vena cava appears normal. The flow pattern of the pulmonary veins appear normal. The superior vena cava appears normal. KATELYN Procedures: All standard views were attempted within the limitations of patient tolerance and safety. History and physical as well as labs were reviewed. The patient was in a fasting state. Risks and benefits of the procedure, including alternatives, were discussed and written informed consent was obtained. The patient and/or their health care market survey representative expressed understanding of the procedure, risks and benefits. Baseline and continuous monitoring of blood pressure, heart rate, pulse oximetry and heart rhythm was performed throughout the procedure. The appropriate time-out procedure was performed as per [facility] protocol. The patient was placed in the left lateral decubitus position. The patient's posterior pharynx was anesthetized with 20ml of 2% viscous lidocaine. The patient received IV Midazolam with a total dose of 6 mg. The patient received IV Fentanyl with a total dose of 100 mcg. The patient received IV Benadryl with a total dose of 25 mg. An oral bite block was inserted for protection of oral dentition. The multiplane transesophageal echocardiogram probe was inserted through the posterior oropharynx and advanced into the esophagus without difficulty. Multiple 2D images were obtained of the heart and its related structures. Color flow Doppler was used for evaluation. Spectral Doppler was also used. The atrial septum was interrogated with color flow Doppler. At the conclusion of the procedure the probe was removed with continuous suction without complications. The patient tolerated the procedure with no apparent complications. Contrast: Intravenous agitated saline contrast was used to assess intracardiac shunting. Conclusions The left ventricular chamber size is normal. There is normal left ventricular systolic function. The estimated ejection fraction is 55-60%. The left atrial chamber size is normal. The right ventricular chamber size and systolic function are within normal limits. The mitral valve leaflets are mildly thickened.with very small highly mobile fibrinous-like strands attached to the mitral valve leaflets. In the setting of positive blood cultures, this would be consistent with infectious endocarditis. There is mild centrally directed mitral regurgitation. There is no significant pericardial effusion. No prior KATELYN's available for comparison. Results discussed and images reviewed with patient and Dr. Mckinnon following the study. Measurements Name Value Normal Range Aortic Annulus 2 cm (1.4 - 2.6) Ao root diameter (2D) 3.3 cm (2.1 - 3.5) Ascending Ao 3.1 cm (2.1 - 3.4) Name Value Normal Range MV E-wave Vmax 0.7 m/sec - MV deceleration time 138 msec - MV A-wave Vmax 0.6 m/sec - MV E:A ratio 1.2 ratio - Name Value Normal Range MR Vmax 6.2 m/sec - MR VTI 188.04 cm - MR volume (PISA) 3 ml - MR flow (PISA) 11.03 ml/sec - MR ERO 0.2 cm2 - MR PISA radius 0.2 cm - MR alias Vmax 38 cm/sec -
[2017-11-14 13:01] VITALS: BP 140/71
[2017-11-14] MEDS: cefTRIAXone(*) 2 GM in NS 0.9% 100 ML* 100 ML IVPB SCH (13:16)
[2017-11-14] MEDS: Tamsulosin CAP* 0.4 MG PO SCH (13:20)
[2017-11-14] MEDS: Finasteride TAB* 5 MG PO SCH (13:20)
[2017-11-14] MEDS: Pyridoxine TAB* 50 MG PO SCH (13:20)
[2017-11-14] MEDS: Thiamine TAB* 100 MG TAB PO SCH (13:20)
[2017-11-14] MEDS: Simethicone TAB* 80 MG TAB.CHEW PO PRN (13:20)
[2017-11-14] MEDS: Cyanocobalamin TAB* 500 MCG PO SCH (13:20)
[2017-11-14] MEDS: Lactobacillus Acidophilus* 1 TAB PO SCH (13:20)
[2017-11-14] MEDS: Docusate CAP* 100 MG PO SCH (13:22)
[2017-11-14] MEDS: Senna TAB PO SCH (13:22)
--- NOTE | 2017-11-14 14:48 | PN ---
Progress Note - Progress Note Date of Service: 11/14/17 SOAP: Subjective: CC: spine infection HPI: 66 year old man with Neisseria spine infection and endocarditis. His back pain is improving but not resolved. NSAIDs help. Appetite is good. Objective: Vital Signs Temp 36.4 C 11/14/17 12:52 Pulse 65 11/14/17 12:52 Resp 20 11/14/17 12:52 BP 140/71 11/14/17 12:52 Pulse Ox 99 11/14/17 12:52 Intake & Output 11/13/17 11/14/17 11/14/17 18:59 06:59 18:59 Intake Total 1606.8 120 480 Output Total 900 475 Balance 706.8 -355 480 Intake: IV Fluids 25 NS (0.9%) 25 IVPB 112 ABX - CEFTRIAXONE 112 Heparin 89.8 Oral 1380 120 480 Output: Urine 900 475 Other: # Bowel Movements 0 # Voids 3 Gen:awake, no distress HEENT: no thrush Heart:RRR no murmur Lungs:CTA BL Abd:+BS NTND soft Skin: no rash MSK: T spine tenderness Laboratory Results - last 24 hr 11/14/17 11/14/17 11/14/17 00:54 06:48 06:48 WBC 8.2 RBC 4.29 Hgb 13.5 L Hct 38 L MCV 88 MCH 32 H MCHC 36 RDW 13 Plt Count 249 MPV 8.2 APTT 29.6 Sodium 138 L Potassium 3.4 L Chloride 106 Carbon Dioxide 24 Anion Gap 8 BUN 10 Creatinine 0.80 Est GFR ( Amer) 124.0 Est GFR (Non-Af Amer) 96.4 BUN/Creatinine Ratio 12.5 Glucose 101 H Calcium 8.9 Microbiology 11/11/17 14:11 Blood Venous Aerobic Blood Culture - Preliminary No Growth Day 3 11/11/17 14:11 Blood Venous Anaerobic Blood Culture - Preliminary No Growth Day 3 11/11/17 07:40 Blood Venous Aerobic Blood Culture - Preliminary No Growth Day 3 11/11/17 07:40 Blood Venous Anaerobic Blood Culture - Preliminary No Growth Day 3 11/09/17 20:22 Blood Venous Aerobic Blood Culture - Preliminary No Growth Day 4 11/09/17 20:22 Blood Venous Anaerobic Blood Culture - Preliminary No Growth Day 4 11/09/17 20:16 Blood Venous Aerobic Blood Culture - Preliminary No Growth Day 4 11/09/17 20:16 Blood Venous Anaerobic Blood Culture - Preliminary No Growth Day 4 11/08/17 13:35 Blood Venous Aerobic Blood Culture - Final Neisseria Species 11/08/17 13:35 Blood Venous Anaerobic Blood Culture - Final No Growth Day 5 11/08/17 13:42 Blood Venous Aerobic Blood Culture - Final Strep Sanguis (S Sanguis I) 11/08/17 13:42 Blood Venous Anaerobic Blood Culture - Final No Growth Day 5 Assessment: 1. Neisseria bacteremia, resolved; due to vertebral osteodiskitis 2. MV infective endocarditis Plan: 1.ceftriaxone day with follow up TTE. Weekly CBC, CMP, CRP. Follow up with me 1-2 weeks. 35 minutes floor time >50% face to face discussing follow up antibiotics
--- NOTE | 2017-11-15 12:02 | DS ---
CC: Dr. Colon * DISCHARGE SUMMARY: DATE OF ADMISSION: 11/08/17 DATE OF DISCHARGE: 11/14/17 PRIMARY CARE PROVIDER: Dr. Colon. INFECTIOUS DISEASE SPECIALIST: Dr. Mendez. 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 SECONDARY DIAGNOSIS: Paroxysmal atrial fibrillation - resolved. DISCHARGE MEDICATIONS: 1. Flexeril 10 mg p.o. t.i.d. p.r.n. spasm. 2. Vitamin B12 500 mcg p.o. daily. 3. Osteo Bi-Flex 1 tab p.o. daily. 4. Finasteride 5 mg p.o. daily. 5. Colace 100 mg p.o. b.i.d. 6. Thiamine 100 mg p.o. daily. 7. Flomax 0.8 mg p.o. daily. 8. Pyridoxine 100 mg p.o. daily. 9. Percocet 5/325 one to 2 tabs q.4 hours p.r.n. pain. 10. Lactobacillus 1 tab p.o. daily. 11. Ibuprofen 200 mg q.6 hours p.r.n. pain. HOSPITAL COURSE: Mr. Brower is a 66-year-old male who was initially admitted to [facility] on 11/06/17 through 11/07/17 with complaints of back pain. At that time , the patient was noted to have fever and blood cultures were obtained though were negative at the time of his discharge. The morning of 11/08/17, the patient was informed by phone that his blood cultures were positive for gram- negative bertha and he was asked to return to the emergency room. Upon return to the emergency room, the patient did inform the staff that he had had night sweats and chills. He underwent repeat set of blood cultures as well as lab work. He was noted to have an ESR of 49 and a CRP of 200.58. He had no elevated white blood cell count. He had a low grade fever of 100.8 on return to the emergency room. The patient underwent an MRI with contrast of the thoracic spine which revealed endplate irregularities with edema at the T6-7 level corresponding to degenerative changes. While these findings are likely secondary to osteoarthritis/degenerative change, osteomyelitis/discitis cannot be excluded. Given the fact that he was bacteremic and had elevated markers of inflammation, it was felt that this is likely represented osteodiscitis. The patient was then seen in consultation by Dr. Mendez, who recommended TTE to rule out endocarditis, continuing cefepime and following up blood cultures that were obtained on second admission. It was recommended that he would need 8 weeks of IV antibiotic therapy. On 11/12/17, the patient was noted to go into atrial fibrillation. He was given digoxin. He underwent a V/Q scan to rule out PE which was low probability. ID then recommended transesophageal echocardiogram which was performed on 11/14/17 which revealed very small highly mobile fibrinous like strands attached to the mitral valve leaflets. In the setting of positive blood cultures, this was felt to be consistent with infectious endocarditis. The patient's antibiotic regimen was changed to ceftriaxone 2 g IV daily. He will continue on this for the next approximately 8 weeks. He is going to be discharged home today, 11/14/17 and returned to the infusion clinic on 11/15/17 to have a PICC line placed and to receive his next dose of ceftriaxone. In terms of the atrial fibrillation, the patient was in sinus rhythm at the time of discharge. I have discontinued the digoxin. Additionally, his WATSON- VASC score is 1. It was decided that he does not need anticoagulation. I questioned if the endocarditis may have precipitated the atrial fibrillation. The patient was not sent home on any rate-reducing agents. PHYSICAL EXAMINATION: On the day of discharge, the patient is awake, alert, and oriented, sitting up in the chair in no acute distress. His vital signs are stable and he is afebrile. He does continue to complain of pain in the thoracic region. His cardiac exam reveals a normal S1, S2 with a regular rate and rhythm and no lower extremity edema. His lungs are clear bilaterally. Abdomen is soft, nontender, and nondistended. Musculoskeletal exam reveals full symmetric movements of all 4 extremities. At this point, the patient is felt to be stable for discharge home. FOLLOWUP CONCERNS: The patient is being discharged home today, 11/14/17. ACTIVITY LEVEL: As tolerated. DIET: Regular. CONDITION ON DISCHARGE: Stable. The patient is to begin his outpatient IV antibiotic infusions on 11/15/17 after having PICC line placed on the same date. The patient will have weekly labs as ordered by Dr. Mendez with the results to Dr. Mendez. The patient has been instructed to the emergency room for any severe fevers, chills, profuse diarrhea or any other concerning symptoms. TIME SPENT: Thirty-five minutes was spent discharging this patient. [id number]/[facility] #: [id number] MTDD
== END 2017-11-14 16:47 | disposition home or self-care (01) | DRG 551 ==
LOC: ED 11:06 → MED 14:27 → MEDTELE 11-11 00:33
PROVIDERS: ADMIT Internal Medicine; ATTEND Hospitalist
PROC: B24BZZ4 Ultrasonography of Heart with Aorta, Transesophageal (ICD-10-PCS; 2017-11-14)
PROC: 02HV33Z Insertion of Infusion Device into Superior Vena Cava, Percutaneous Approach (ICD-10-PCS; principal; 2017-11-14 10:00)
DX: M46.44 Discitis, unspecified, thoracic region (principal); I33.0 Acute and subacute infective endocarditis; A54 Gonococcal infection; R78.81 Bacteremia; I10 Essential (primary) hypertension; E78.00 Pure hypercholesterolemia, unspecified; N40.0 Benign prostatic hyperplasia without lower urinary tract symptoms; M43.16 Spondylolisthesis, lumbar region; M48.061 Spinal stenosis, lumbar region without neurogenic claudication; M51.36 Other intervertebral disc degeneration, lumbar region; I05.8 Other rheumatic mitral valve diseases; I48.91 Unspecified atrial fibrillation; M51.34 Other intervertebral disc degeneration, thoracic region; R09.82 Postnasal drip; B19.20 Unspecified viral hepatitis C without hepatic coma; R79.1 Abnormal coagulation profile; B95.7 Other staphylococcus as the cause of diseases classified elsewhere; K58.2 Mixed irritable bowel syndrome; X50.0XXA Overexertion from strenuous movement or load, initial encounter; Y93.9 Activity, unspecified; Y92.512 Supermarket, store or market as the place of occurrence of the external cause; Z88.1 Allergy status to other antibiotic agents; Z88.2 Allergy status to sulfonamides; Z83.3 Family history of diabetes mellitus; Z82.49 Family history of ischemic heart disease and other diseases of the circulatory system; Z72.89 Other problems related to lifestyle; Z80.6 Family history of leukemia; Z87.891 Personal history of nicotine dependence; Z83.6 Family history of other diseases of the respiratory system
CPT/HCPCS: 36415; 70030; 71045; 71046; 72128; 72146; 72148; 74019; 78582; 80048; 80053; 80202; 81003; 81015; 82565; 83605; 83735; 84484; 84520; 85025; 85027; 85379; 85610; 85652; 85730; 86140; 87040; 87077; 87086; 87186; 87205; 87493; 93005; 93306; 93312; 93325; 96372; 96374; 99156; 99157; 99284; A9270-GY; A9540; A9558; G0378; G8978-GP-CI; G8979-GP-CH; J0692; J0696; J1160; J1200; J1644; J1885; J2250; J2270; J2310; J2405; J3010; J3370; J3490

== ENCOUNTER 2018-02-10 10:18 | Inpatient (IN) | payer MEDICARE ==
[2018-02-10] MEDS ORDERED: Lactated Ringers 1000 ml Bag*IV.FLUID IV ONE (10:36)
[2018-02-10] MEDS ORDERED: Piperacillin/Tazobac ADVAN(*) 3.375 GM in NS 0.9% 100 ML* 100 ML IVPB ONE (10:36)
--- NOTE | 2018-02-10 10:37 | ED ---
Back Pain - HPI Summary HPI Summary: This is scribe [facility] documenting for attending Pierre Shoemaker MD. Pt is a 67 y/o M, referred to ED by Dr. Glaser, c/o back pain. Pain is located in the lower T-spine and rated a 5/10, per triage. Assoc. Sx: back pain. Denies : CP, SOB. Patient was D/C from hospital ~3 months ago with a diagnosis of sepsis. He was on 7 weeks of infusions and is now on oral ABX. He reports doing well on Ceftriaxone. An MRI was done on his spine ~3 days ago which returned a change from previous MRI done alerting the physician and thus referring him here. Pt states he was told to rule out osteomylitis. I, Dr. Shoemaker, personally performed the services described in this documentation as scribed in my presence and it is both accurate and complete. - History of Current Complaint Chief Complaint: EDBackInjuryPain Stated Complaint: ABNORMAL LABS/BACK PAIN Time Seen by Provider: 02/10/18 10:35 Hx Obtained From: Patient Onset/Duration: Gradual Onset, Lasting Weeks, Still Present Onset/Duration: Started Weeks Ago, Still Present, Worse Since - Few days, increasing pain Severity Initially: Mild Severity Currently: Moderate Pain Intensity: 5 Pain Scale Used: 0-10 Numeric Aggravating Symptom(s): Other - POS: standing Associated Signs And Symptoms: Positive: Fever - Allergies/Home Medications Allergies/Adverse Reactions: Allergies Allergy/AdvReac Type Severity Reaction Status Date / Time sulfamethoxazole Allergy Hives Verified 02/10/18 10:41 [From Bactrim] trimethoprim [From Bactrim] Allergy Hives Verified 02/10/18 10:41 IV contrast Allergy Unknown Hives Uncoded 02/10/18 10:41 PMH/Surg Hx/FS Hx/Imm Hx Endocrine/Hematology History: Denies: Hx Anticoagulant Therapy, Hx Blood Disorders, Hx Diabetes Cardiovascular History: Reports: Hx Hypercholesterolemia - resolved with diet Denies: Hx Aneurysm, Hx Coronary Artery Disease, Hx Hypertension - resolved with diet, Hx Myocardial Infarction, Hx Pacemaker/ICD, Hx Valvular Heart Disease Respiratory History: Denies: Hx Asthma, Hx Chronic Obstructive Pulmonary Disease (COPD), Hx Pneumonia GI History: Reports: Hx Irritable Bowel - treating with diet changes History: Reports: Hx Benign Prostatic Hyperplasia, Other Problems/ Disorders - h/o prostate infection Denies: Hx Renal Disease Musculoskeletal History: Reports: Hx Back Problems, Other Musculoskeletal History - Hx degenerative disc disease Sensory History: Reports: Hx Contacts or Glasses Denies: Hx Hearing Aid, Other Sensory Impairments Opthamlomology History: Reports: Hx Contacts or Glasses Denies: Other Sensory Impairments Psychiatric History: Denies: Hx Panic Disorder Infectious Disease History: Yes Infectious Disease History: Denies: Hx Clostridium Difficile, Hx Hepatitis, Hx Human Immunodeficiency Virus (HIV), Hx of Known/Suspected MRSA, Traveled Outside the [place] in Last 30 Days - Family History Known Family History: Positive: Hypertension - Father, Diabetes - Uncle - Social History Occupation: Employed Full-time Lives: With Family Alcohol Use: None Alcohol Amount: wine with dinner Hx Substance Use: No Substance Use Type: Reports: None Hx Tobacco Use: No Smoking Status (MU): Former Smoker Type: Cigarettes Have You Smoked in the Last Year: No Review of Systems Positive: Fever Negative: Chest Pain Negative: Shortness Of Breath Positive: Other - POS: back pain All Other Systems Reviewed And Are Negative: Yes Physical Exam - Summary Physical Exam Summary: Appearance: Well appearing, no pain distress Skin: warm, dry, reflects adequate perfusion Head/face: normal Eyes: EOMI, DACIA ENT: normal, mucous membranes moist. Neck: supple, non-tender Respiratory: CTA, breath sounds present Cardiovascular: RRR, pulses symmetrical Abdomen: non-tender, soft Bowel Sounds: present Musculoskeletal: No palpable tenderness, strength/ROM intact Neuro: normal, sensory motor intact, A&Ox3 Triage Information Reviewed: Yes Vital Signs On Initial Exam: Initial Vitals Temp Pulse Resp BP Pulse Ox 97.3 F 82 16 155/88 100 02/10/18 10:31 02/10/18 10:31 02/10/18 10:31 02/10/18 10:31 02/10/18 10:31 Vital Signs Reviewed: Yes Diagnostics - Vital Signs Vital Signs Temp Pulse Resp BP Pulse Ox 02/10/18 10:31 97.3 F 82 16 155/88 100 - Laboratory Result Diagrams: 02/10/18 10:49 02/10/18 10:49 Lab Statement: Any lab studies that have been ordered have been reviewed, and results considered in the medical decision making process. - Radiology CXR Xray Interpretation: No Acute Changes - IMPRESSION: No active cardiopulmonary disease. Radiology Interpretation Completed By: Radiologist - report has been reviewed by provider and radiologist. - EKG 1050 Cardiac Rate: NL - 78 bpm EKG Rhythm: Sinus Rhythm ST Segment: Normal EKG Interpretation: nml axis, nml interval Back Pain Course/Dx - Course Course Of Treatment: pt with hx of thoracic spine osteo and MR on Thurs showing possible osteo in same locaiton. Neg WBC, ESR/CRP. Start IV rocephin/vanco. Admit thru hospitalist. Pt stable. Tx pain with tylenol at pt request. - Diagnoses Provider Diagnoses: Osteomyelitis of thoracic spine Discharge - Sign-Out/Discharge Documenting (check all that apply): Patient Departure - Discharge Plan Condition: Stable Disposition: ADMITTED TO [facility] Referrals: Ambrosio Colon MD [Primary Care Provider] - - Billing Disposition and Condition Condition: STABLE Disposition: Admitted to [facility]
[2018-02-10] MEDS ORDERED: cefTRIAXone(*) 2 GM in NS 0.9% 100 ML* 100 ML IVPB ONE (10:45)
[2018-02-10] MEDS ORDERED: Vancomycin(*) 1,000 MG VIAL IVPB SCH (11:00)
[2018-02-10 11:02] LABS: ABS Basophils 0 10^3/ul (0-0.2); ABS Eosinophils 0 10^3/ul (0-0.6); ABS Lymphocytes 0.6 10^3/ul (1.0-4.8); ABS Monocytes 0.4 10^3/ul (0-0.8); ABS Nucleated RBC 0 10^3/ul; Eosinophil % 0.1 % (0-6); Hematocrit 46 % (42-52); Hemoglobin 16.1 g/dl (14.0-18.0); Lymphocyte % 8.2 % (25-47); Mean Corpuscular HGB Conc 35 g/dl (31-36); Mean Corpuscular Hemoglobin 31 pg (27-31); Mean Corpuscular Volume 89 fL (80-94); Mean Platelet Volume 7.9 um3 (7.4-10.4); Nucleated Red Blood Cells % 0.1; Platelet Count 205 10^3/ul (150-450); Red Blood Count 5.23 10^6/ul (4.00-5.40); Red Cell Distribution Width 13 % (10.5-15); White Blood Count 7.1 10^3/ul (3.5-10.8)
[2018-02-10 11:12] LABS: INR 0.92 (0.77-1.02)
--- NOTE | 2018-02-10 11:15 | RAD ---
HISTORY: sepsis/osteo of spine COMPARISONS: November 13, 2017 VIEWS: 1: frontal portable view of the chest at 11:04 PM FINDINGS: LINES AND TUBES: None. CARDIOMEDIASTINAL SILHOUETTE: The cardiomediastinal silhouette is normal for portable technique. PLEURA: The costophrenic angles are sharp. No pleural abnormalities are noted. LUNG PARENCHYMA: The lungs are clear. ABDOMEN: The upper abdomen is clear. There is no subphrenic gas. BONES AND SOFT TISSUES: No bone or soft tissue abnormalities are noted. IMPRESSION: NO ACTIVE CARDIOPULMONARY DISEASE.
[2018-02-10 11:20] LABS: EGFR Non-African American 76.1 (>60)
[2018-02-10] MEDS ORDERED: oxyCODONE/Acetamin 5/325 MG* TAB PO ONE (11:22)
--- OUTSIDE RECORDS SUMMARY | 2018-02-10 11:24 | XMS REPORT ---
:1950 External Reference #:[id number] Author Organization [facility] Address [address] [place] [address] [place] [address] Phone [phone] Care Team Providers Name Role Phone Ambrosio Colon MD Primary Care Physician Unavailable Payers Type Date Identification Numbers Payment Provider Subscriber Medicare Primary Policy Number: [id number] Medicare Gagan Brower PayID: [id number] [address] [place] [address] [facility] Policy Number: [id number] [facility] Gagan Brower PayID: [id number] [address] [place] [address] Problems Date Description Provider Status Onset: 11/14/2017 Spinal enthesopathy Genoveva Lo D.O. Active Onset: 11/14/2017 Bacteremia Genoveva Lo D.O. 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 Active Social History Type Date Description Comments Smoking Patient is a former smoker quit when he was 25 yrs old Allergies, Adverse Reactions, Alerts Date Description Reaction Status Severity Comments 11/29/2017 Bactrim "I got welts" active 11/29/2017 CT Contrast Urticaria active Medications Medication Date Status Form Strength Qnty SIG Indications Ordering Provider Levaquin 01/16/ Active Tablets 500mg 28tabs 1 by Diego 2018 mouth D. every [place], day M.D. Vitamin B-12 / Active Tablets 500mcg 1 by Unknown 0000 mouth every day Osteo Bi-Flex / Active Tablets 250-200mg 1 by Unknown Regular Strength 0000 mouth every day Finasteride / Active Tablets 5mg 1 by Unknown 0000 mouth every day Thiamine HCL 00/ Active Tablets 100mg 1 by Unknown 0000 mouth every day Flomax / Active Capsules 0.4mg 2 by Unknown 0000 mouth every day Pyridoxine HCL / Active Tablets 100mg 1 every Unknown 0000 day Probiotic / Active Tablets 2 by Unknown 0000 mouth every day Ibuprofen / Active Capsules 200mg 1 po q 6 Unknown 0000 hrs as needed for pain Cephalexin 12/25/ Hx Capsules 500mg 90caps take one Diego 2017 - capsule D. 01/16/ by mouth Bhavin2017 three M.D. times a day Cefdinir 12/22/ Hx Capsules 300mg 60caps 1 twice M46.24 Diego 2018 - daily D. 01/09/ Carolina2017 M.D. Ceftriaxone / Hx Solution 2gm 2 grams Unknown Sodium 0000 - Rec daily iv 01/02/ x 8 wks 2018 [place] [facility] [place]obenzaprine / Hx Tablets 10mg 1 tablet Unknown HCL 0000 - by mouth 11/28/ q8 hours 2018 as needed muscle spasms Colace / Hx Capsules 100mg 1 tab by Unknown 0000 - mouth 2 11/28/ times a 2017 day as needed Percocet / Hx Tablets 5-325mg 1-2 tabs Unknown 0000 - by mouth 11/28/ every 4 2018 hours as needed pain Vital Signs Date Vital Result Comment 01/24/2018 Height 67 inches 5'7" Weight 161.00 lb Heart Rate 60 /min BP Systolic Sitting 124 mmHg BP Diastolic Sitting 72 mmHg Respiratory Rate 14 /min Body Temperature 97.9 F BMI (Body Mass Index) 25.2 kg/m2 01/10/2018 Height 67 inches 5'7" Weight 161.12 lb Heart Rate 72 /min BP Systolic Sitting 136 mmHg BP Diastolic Sitting 72 mmHg Respiratory Rate 14 /min Body Temperature 97.7 F BMI (Body Mass Index) 25.2 kg/m2 12/22/2017 Height 67 inches 5'7" Weight 161.00 lb Heart Rate 72 /min BP Systolic Sitting 132 mmHg BP Diastolic Sitting 64 mmHg Respiratory Rate 14 /min Body Temperature 98.0 F BMI (Body Mass Index) 25.2 kg/m2 11/29/2017 Height 67 inches 5'7" Weight 157.00 lb Heart Rate 72 /min BP Systolic Sitting 138 mmHg BP Diastolic Sitting 78 mmHg Respiratory Rate 14 /min Body Temperature 97.5 F BMI (Body Mass Index) 24.6 kg/m2 Results Test Date Test Result H/L Range Note Laboratory test finding 01/22/2018 C Reactive Protein 2.68 mg/L <8.01 Comp Metabolic Panel 01/22/2018 Sodium 137 mmol/L 135-145 Potassium 4.1 mmol/L 3.5-5.0 Chloride 104 mmol/L 101-111 Co2 Carbon Dioxide 27 mmol/L 22-32 Anion Gap 6 mmol/L 2-11 Glucose 96 mg/dL 70-100 Blood Urea Nitrogen 14 mg/dL 6-24 Creatinine 1.03 mg/dL 0.67-1.17 BUN/Creatinine Ratio 13.6 8-20 Calcium 9.6 mg/dL 8.6-10.3 Total Protein 6.7 g/dL 6.4-8.9 Albumin 4.1 g/dL 3.2-5.2 Globulin 2.6 g/dL 2-4 Albumin/Globulin Ratio 1.6 1-3 Total Bilirubin 0.50 mg/dL 0.2-1.0 Alkaline Phosphatase 53 U/L 34-104 Alt 14 U/L 7-52 Ast 18 U/L 13-39 Egfr Non- 71.8 >60 Egfr 86.9 >60 1 CBC Auto Diff 01/22/2018 White Blood Count 5.6 10^3/uL 3.5-10.8 Red Blood Count 5.00 10^6/uL 4.00-5.40 Hemoglobin 15.4 g/dL 14.0-18.0 Hematocrit 45 % 42-52 Mean Corpuscular Volume 90 fL 80-94 Mean Corpuscular Hemoglobin 31 pg 27-31 Mean Corpuscular HGB Conc 34 g/dL 31-36 Red Cell Distribution Width 14 % 10.5-15 Platelet Count 197 10^3/uL 150-450 Mean Platelet Volume 8.6 um3 7.4-10.4 Abs Neutrophils 4.1 10^3/uL 1.5-7.7 Abs Lymphocytes 1.0 10^3/uL 1.0-4.8 Abs Monocytes 0.4 10^3/uL 0-0.8 Abs Eosinophils 0.1 10^3/uL 0-0.6 Abs Basophils 0 10^3/uL 0-0.2 Abs Nucleated RBC 0 10^3/uL Granulocyte % 73.8 % 38-83 Lymphocyte % 17.7 % Low 25-47 Monocyte % 7.1 % High 0-7 Eosinophil % 0.9 % 0-6 Basophil % 0.5 % 0-2 Nucleated Red Blood Cells % 0 Laboratory test finding 01/16/2018 C Reactive Protein 3.02 mg/L <8.01 CBC Auto Diff 01/02/2018 White Blood Count 4.5 10^3/uL 3.5-10.8 Red Blood Count 4.68 10^6/uL 4.00-5.40 Hemoglobin 14.4 g/dL 14.0-18.0 Hematocrit 42 % 42-52 Mean Corpuscular Volume 89 fL 80-94 Mean Corpuscular Hemoglobin 31 pg 27-31 Mean Corpuscular HGB Conc 35 g/dL 31-36 Red Cell Distribution Width 14 % 10.5-15 Platelet Count 172 10^3/uL 150-450 Mean Platelet Volume 8.4 um3 7.4-10.4 Abs Neutrophils 3.0 10^3/uL 1.5-7.7 Abs Lymphocytes 1.0 10^3/uL 1.0-4.8 Abs Monocytes 0.4 10^3/uL 0-0.8 Abs Eosinophils 0.1 10^3/uL 0-0.6 Abs Basophils 0 10^3/uL 0-0.2 Abs Nucleated RBC 0 10^3/uL Granulocyte % 66.7 % 38-83 Lymphocyte % 22.3 % Low 25-47 Monocyte % 9.0 % High 0-7 Eosinophil % 1.3 % 0-6 Basophil % 0.7 % 0-2 Nucleated Red Blood Cells % 0 Comp Metabolic Panel 01/02/2018 Sodium 136 mmol/L 135-145 Potassium 4.0 mmol/L 3.5-5.0 Chloride 104 mmol/L 101-111 Co2 Carbon Dioxide 26 mmol/L 22-32 Anion Gap 6 mmol/L 2-11 Glucose 123 mg/dL High 70-100 Blood Urea Nitrogen 15 mg/dL 6-24 Creatinine 0.88 mg/dL 0.67-1.17 BUN/Creatinine Ratio 17.0 8-20 Calcium 9.4 mg/dL 8.6-10.3 Total Protein 6.7 g/dL 6.4-8.9 Albumin 3.9 g/dL 3.2-5.2 Globulin 2.8 g/dL 2-4 Albumin/Globulin Ratio 1.4 1-3 Total Bilirubin 0.50 mg/dL 0.2-1.0 Alkaline Phosphatase 58 U/L 34-104 Alt 15 U/L 7-52 Ast 19 U/L 13-39 Egfr Non- 86.1 >60 Egfr 104.2 >60 2 Laboratory test finding 01/02/2018 C Reactive Protein 2.56 mg/L <8.01 CBC Auto Diff 12/26/2017 White Blood Count 4.8 10^3/uL 3.5-10.8 Red Blood Count 4.65 10^6/uL 4.00-5.40 Hemoglobin 14.3 g/dL 14.0-18.0 Hematocrit 41 % Low 42-52 Mean Corpuscular Volume 89 fL 80-94 Mean Corpuscular Hemoglobin 31 pg 27-31 Mean Corpuscular HGB Conc 35 g/dL 31-36 Red Cell Distribution Width 14 % 10.5-15 Platelet Count 153 10^3/uL 150-450 Mean Platelet Volume 8.6 um3 7.4-10.4 Abs Neutrophils 3.4 10^3/uL 1.5-7.7 Abs Lymphocytes 0.9 10^3/uL Low 1.0-4.8 Abs Monocytes 0.4 10^3/uL 0-0.8 Abs Eosinophils 0.1 10^3/uL 0-0.6 Abs Basophils 0 10^3/uL 0-0.2 Abs Nucleated RBC 0 10^3/uL Granulocyte % 71.1 % 38-83 Lymphocyte % 18.0 % Low 25-47 Monocyte % 8.7 % High 0-7 Eosinophil % 1.7 % 0-6 Basophil % 0.5 % 0-2 Nucleated Red Blood Cells % 0 Comp Metabolic Panel 12/26/2017 Sodium 138 mmol/L 135-145 Potassium 4.1 mmol/L 3.5-5.0 Chloride 106 mmol/L 101-111 Co2 Carbon Dioxide 25 mmol/L 22-32 Anion Gap 7 mmol/L 2-11 Glucose 103 mg/dL High 70-100 Blood Urea Nitrogen 12 mg/dL 6-24 Creatinine 0.90 mg/dL 0.67-1.17 BUN/Creatinine Ratio 13.3 8-20 Calcium 9.0 mg/dL 8.6-10.3 Total Protein 6.7 g/dL 6.4-8.9 Albumin 3.9 g/dL 3.2-5.2 Globulin 2.8 g/dL 2-4 Albumin/Globulin Ratio 1.4 1-3 Total Bilirubin 0.50 mg/dL 0.2-1.0 Alkaline Phosphatase 50 U/L 34-104 Alt 15 U/L 7-52 Ast 19 U/L 13-39 Egfr Non- 83.9 >60 Egfr 101.5 >60 3 Laboratory test finding 12/26/2017 C Reactive Protein 2.45 mg/L <8.01 Laboratory test finding 12/19/2017 C Reactive Protein 3.13 mg/L <8.01 Comp Metabolic Panel 12/19/2017 Sodium 136 mmol/L 135-145 Potassium 4.1 mmol/L 3.5-5.0 Chloride 104 mmol/L 101-111 Co2 Carbon Dioxide 26 mmol/L 22-32 Anion Gap 6 mmol/L 2-11 Glucose 92 mg/dL 70-100 Blood Urea Nitrogen 13 mg/dL 6-24 Creatinine 0.90 mg/dL 0.67-1.17 BUN/Creatinine Ratio 14.4 8-20 Calcium 9.5 mg/dL 8.6-10.3 Total Protein 6.5 g/dL 6.4-8.9 Albumin 4.0 g/dL 3.2-5.2 Globulin 2.5 g/dL 2-4 Albumin/Globulin Ratio 1.6 1-3 Total Bilirubin 0.50 mg/dL 0.2-1.0 Alkaline Phosphatase 62 U/L 34-104 Alt 19 U/L 7-52 Ast 21 U/L 13-39 Egfr Non- 83.9 >60 Egfr 101.5 >60 4 CBC Auto Diff 12/19/2017 White Blood Count 5.1 10^3/uL 3.5-10.8 Red Blood Count 4.64 10^6/uL 4.00-5.40 Hemoglobin 14.5 g/dL 14.0-18.0 Hematocrit 41 % Low 42-52 Mean Corpuscular Volume 89 fL 80-94 Mean Corpuscular Hemoglobin 31 pg 27-31 Mean Corpuscular HGB Conc 35 g/dL 31-36 Red Cell Distribution Width 14 % 10.5-15 Platelet Count 170 10^3/uL 150-450 Mean Platelet Volume 8.2 um3 7.4-10.4 Abs Neutrophils 3.3 10^3/uL 1.5-7.7 Abs Lymphocytes 1.1 10^3/uL 1.0-4.8 Abs Monocytes 0.5 10^3/uL 0-0.8 Abs Eosinophils 0.1 10^3/uL 0-0.6 Abs Basophils 0 10^3/uL 0-0.2 Abs Nucleated RBC 0 10^3/uL Granulocyte % 64.8 % 38-83 Lymphocyte % 21.9 % Low 25-47 Monocyte % 10.6 % High 0-7 Eosinophil % 2.2 % 0-6 Basophil % 0.5 % 0-2 Nucleated Red Blood Cells % 0.1 CBC Auto Diff 12/12/2017 White Blood Count 5.7 10^3/uL 3.5-10.8 Red Blood Count 4.70 10^6/uL 4.00-5.40 Hemoglobin 14.7 g/dL 14.0-18.0 Hematocrit 42 % 42-52 Mean Corpuscular Volume 89 fL 80-94 Mean Corpuscular Hemoglobin 31 pg 27-31 Mean Corpuscular HGB Conc 35 g/dL 31-36 Red Cell Distribution Width 13 % 10.5-15 Platelet Count 193 10^3/uL 150-450 Mean Platelet Volume 8.3 um3 7.4-10.4 Abs Neutrophils 3.9 10^3/uL 1.5-7.7 Abs Lymphocytes 1.2 10^3/uL 1.0-4.8 Abs Monocytes 0.5 10^3/uL 0-0.8 Abs Eosinophils 0.1 10^3/uL 0-0.6 Abs Basophils 0 10^3/uL 0-0.2 Abs Nucleated RBC 0 10^3/uL Granulocyte % 67.7 % 38-83 Lymphocyte % 20.6 % Low 25-47 Monocyte % 9.5 % High 0-7 Eosinophil % 1.5 % 0-6 Basophil % 0.7 % 0-2 Nucleated Red Blood Cells % 0 Comp Metabolic Panel 12/12/2017 Sodium 135 mmol/L 135-145 Potassium 4.1 mmol/L 3.5-5.0 Chloride 103 mmol/L 101-111 Co2 Carbon Dioxide 27 mmol/L 22-32 Anion Gap 5 mmol/L 2-11 Glucose 88 mg/dL 70-100 Blood Urea Nitrogen 16 mg/dL 6-24 Creatinine 0.86 mg/dL 0.67-1.17 BUN/Creatinine Ratio 18.6 8-20 Calcium 9.4 mg/dL 8.6-10.3 Total Protein 6.9 g/dL 6.4-8.9 Albumin 3.9 g/dL 3.2-5.2 Globulin 3.0 g/dL 2-4 Albumin/Globulin Ratio 1.3 1-3 Total Bilirubin 0.40 mg/dL 0.2-1.0 Alkaline Phosphatase 67 U/L 34-104 Alt 19 U/L 7-52 Ast 19 U/L 13-39 Egfr Non- 88.7 >60 Egfr 114.1 >60 5 Laboratory test finding 12/12/2017 C Reactive Protein 3.21 mg/L <8.01 CBC Auto Diff 12/05/2017 White Blood Count 4.6 10^3/uL 3.5-10.8 Red Blood Count 4.54 10^6/uL 4.00-5.40 Hemoglobin 14.1 g/dL 14.0-18.0 Hematocrit 41 % Low 42-52 Mean Corpuscular Volume 90 fL 80-94 Mean Corpuscular Hemoglobin 31 pg 27-31 Mean Corpuscular HGB Conc 35 g/dL 31-36 Red Cell Distribution Width 13 % 10.5-15 Platelet Count 188 10^3/uL 150-450 Mean Platelet Volume 7.7 um3 7.4-10.4 Abs Neutrophils 2.8 10^3/uL 1.5-7.7 Abs Lymphocytes 1.3 10^3/uL 1.0-4.8 Abs Monocytes 0.4 10^3/uL 0-0.8 Abs Eosinophils 0.2 10^3/uL 0-0.6 Abs Basophils 0 10^3/uL 0-0.2 Abs Nucleated RBC 0 10^3/uL Granulocyte % 59.5 % 38-83 Lymphocyte % 26.9 % 25-47 Monocyte % 9.5 % High 0-7 Eosinophil % 3.2 % 0-6 Basophil % 0.9 % 0-2 Nucleated Red Blood Cells % 0 Comp Metabolic Panel 12/05/2017 Sodium 137 mmol/L Low 139-145 Potassium 4.0 mmol/L 3.5-5.0 Chloride 103 mmol/L 101-111 Co2 Carbon Dioxide 27 mmol/L 22-32 Anion Gap 7 mmol/L 2-11 Glucose 104 mg/dL High 70-100 Blood Urea Nitrogen 13 mg/dL 6-24 Creatinine 0.88 mg/dL 0.67-1.17 BUN/Creatinine Ratio 14.8 8-20 Calcium 9.7 mg/dL 8.6-10.3 Total Protein 6.8 g/dL 6.4-8.9 Albumin 3.8 g/dL 3.2-5.2 Globulin 3.0 g/dL 2-4 Albumin/Globulin Ratio 1.3 1-3 Total Bilirubin 0.40 mg/dL 0.2-1.0 Alkaline Phosphatase 74 U/L 34-104 Alt 17 U/L 7-52 Ast 17 U/L 13-39 Egfr Non- 86.4 >60 Egfr 111.1 >60 6 Laboratory test finding 12/05/2017 C Reactive Protein 4.16 mg/L < 5.00 7 CBC Auto Diff 11/28/2017 White Blood Count 4.7 10^3/uL 3.5-10.8 Red Blood Count 4.56 10^6/uL 4.0-5.4 Hemoglobin 14.4 g/dL 14.0-18.0 Hematocrit 41 % Low 42-52 Mean Corpuscular Volume 90 fL 80-94 Mean Corpuscular Hemoglobin 32 pg High 27-31 Mean Corpuscular HGB Conc 35 g/dL 31-36 Red Cell Distribution Width 13 % 10.5-15 Platelet Count 183 10^3/uL 150-450 Mean Platelet Volume 8.9 um3 7.4-10.4 Abs Neutrophils 3.1 10^3/uL 1.5-7.7 Abs Lymphocytes 1.0 10^3/uL 1.0-4.8 Abs Monocytes 0.5 10^3/uL 0-0.8 Abs Eosinophils 0.1 10^3/uL 0-0.6 Abs Basophils 0.1 10^3/uL 0-0.2 Abs Nucleated RBC 0 10^3/uL Granulocyte % 65.6 % 38-83 Lymphocyte % 20.6 % Low 25-47 Monocyte % 10.5 % High 0-7 Eosinophil % 1.4 % 0-6 Basophil % 1.9 % 0-2 Nucleated Red Blood Cells % 0 Comp Metabolic Panel 11/28/2017 Sodium 137 mmol/L Low 139-145 Potassium 4.1 mmol/L 3.5-5.0 Chloride 103 mmol/L 101-111 Co2 Carbon Dioxide 28 mmol/L 22-32 Anion Gap 6 mmol/L 2-11 Glucose 110 mg/dL High 70-100 Blood Urea Nitrogen 18 mg/dL 6-24 Creatinine 0.89 mg/dL 0.67-1.17 BUN/Creatinine Ratio 20.2 High 8-20 Calcium 9.5 mg/dL 8.6-10.3 Total Protein 7.1 g/dL 6.4-8.9 Albumin 3.8 g/dL 3.2-5.2 Globulin 3.3 g/dL 2-4 Albumin/Globulin Ratio 1.2 1-3 Total Bilirubin 0.40 mg/dL 0.2-1.0 Alkaline Phosphatase 82 U/L 34-104 Alt 22 U/L 7-52 Ast 18 U/L 13-39 Egfr Non- 85.3 >60 Egfr 109.7 >60 8 Laboratory test finding 11/28/2017 C Reactive Protein 6.25 mg/L High < 5.00 9 CBC Auto Diff 11/21/2017 White Blood Count 6.9 10^3/uL 3.5-10.8 Red Blood Count 4.47 10^6/uL 4.0-5.4 Hemoglobin 13.7 g/dL Low 14.0-18.0 Hematocrit 40 % Low 42-52 Mean Corpuscular Volume 90 fL 80-94 Mean Corpuscular Hemoglobin 31 pg 27-31 Mean Corpuscular HGB Conc 34 g/dL 31-36 Red Cell Distribution Width 13 % 10.5-15 Platelet Count 288 10^3/uL 150-450 Mean Platelet Volume 8.3 um3 7.4-10.4 Abs Neutrophils 5.2 10^3/uL 1.5-7.7 Abs Lymphocytes 1.1 10^3/uL 1.0-4.8 Abs Monocytes 0.5 10^3/uL 0-0.8 Abs Eosinophils 0 10^3/uL 0-0.6 Abs Basophils 0.1 10^3/uL 0-0.2 Abs Nucleated RBC 0 10^3/uL Granulocyte % 75.0 % 38-83 Lymphocyte % 15.5 % Low 25-47 Monocyte % 7.6 % High 0-7 Eosinophil % 0.7 % 0-6 Basophil % 1.2 % 0-2 Nucleated Red Blood Cells % 0 Comp Metabolic Panel 11/21/2017 Sodium 134 mmol/L Low 139-145 Potassium 4.3 mmol/L 3.5-5.0 Chloride 101 mmol/L 101-111 Co2 Carbon Dioxide 27 mmol/L 22-32 Anion Gap 6 mmol/L 2-11 Glucose 105 mg/dL High 70-100 Blood Urea Nitrogen 16 mg/dL 6-24 Creatinine 0.89 mg/dL 0.67-1.17 BUN/Creatinine Ratio 18.0 8-20 Calcium 9.2 mg/dL 8.6-10.3 Total Protein 7.1 g/dL 6.4-8.9 Albumin 3.7 g/dL 3.2-5.2 Globulin 3.4 g/dL 2-4 Albumin/Globulin Ratio 1.1 1-3 Total Bilirubin 0.40 mg/dL 0.2-1.0 Alkaline Phosphatase 65 U/L 34-104 Alt 24 U/L 7-52 Ast 19 U/L 13-39 Egfr Non- 85.3 >60 Egfr 109.7 >60 10 Laboratory test finding 11/21/2017 C Reactive Protein 17.75 mg/L High < 5.00 11 Urinalysis Profile 11/08/2017 Urine Color Yellow Urine Appearance Clear Urine Specific [place] 1.006 Low 1.010-1.030 Urine pH 6.0 5-9 Urine Urobilinogen Negative Negative Urine Ketones Trace Negative Urine Protein Negative Negative Urine Leukocytes Negative Negative Urine Blood 2+ Negative Urine Nitrite Negative Negative Urine Bilirubin Negative Negative Urine Glucose Negative Negative Urine White Blood Cell Absent Absent Urine Red Blood Cell 2+(6-10/hpf) Absent Urine Bacteria Absent Absent 1 Because ethnic data is not always readily available, this report includes an eGFR for both -Americans and non- Americans. The National Kidney Disease Education Program (NKDEP) does not endorse the use of the MDRD equation for patients that are not between the ages of 18 and 70, are , have extremes of body size, muscle mass, or nutritional status, or are non- or non-. According to the National Kidney Foundation, irrespective of diagnosis, the stage of the disease is based on the level of kidney function: Stage Description GFR(mL/min/1.73 m(2)) 1 Kidney damage with normal or decreased GFR 90 2 Kidney damage with mild decrease in GFR 60-89 3 Moderate decrease in GFR 30-59 4 Severe decrease in GFR 15-29 5 Kidney failure <15 (or dialysis) 2 Because ethnic data is not always readily available, this report includes an eGFR for both -Americans and non- Americans. The National Kidney Disease Education Program (NKDEP) does not endorse the use of the MDRD equation for patients that are not between the ages of 18 and 70, are , have extremes of body size, muscle mass, or nutritional status, or are non- or non-. According to the National Kidney Foundation, irrespective of diagnosis, the stage of the disease is based on the level of kidney function: Stage Description GFR(mL/min/1.73 m(2)) 1 Kidney damage with normal or decreased GFR 90 2 Kidney damage with mild decrease in GFR 60-89 3 Moderate decrease in GFR 30-59 4 Severe decrease in GFR 15-29 5 Kidney failure <15 (or dialysis) 3 Because ethnic data is not always readily available, this report includes an eGFR for both -Americans and non- Americans. The National Kidney Disease Education Program (NKDEP) does not endorse the use of the MDRD equation for patients that are not between the ages of 18 and 70, are , have extremes of body size, muscle mass, or nutritional status, or are non- or non-. According to the National Kidney Foundation, irrespective of diagnosis, the stage of the disease is based on the level of kidney function: Stage Description GFR(mL/min/1.73 m(2)) 1 Kidney damage with normal or decreased GFR 90 2 Kidney damage with mild decrease in GFR 60-89 3 Moderate decrease in GFR 30-59 4 Severe decrease in GFR 15-29 5 Kidney failure <15 (or dialysis) 4 Because ethnic data is not always readily available, this report includes an eGFR for both -Americans and non- Americans. The National Kidney Disease Education Program (NKDEP) does not endorse the use of the MDRD equation for patients that are not between the ages of 18 and 70, are , have extremes of body size, muscle mass, or nutritional status, or are non- or non-. According to the National Kidney Foundation, irrespective of diagnosis, the stage of the disease is based on the level of kidney function: Stage Description GFR(mL/min/1.73 m(2)) 1 Kidney damage with normal or decreased GFR 90 2 Kidney damage with mild decrease in GFR 60-89 3 Moderate decrease in GFR 30-59 4 Severe decrease in GFR 15-29 5 Kidney failure <15 (or dialysis) 5 Because ethnic data is not always readily available, this report includes an eGFR for both -Americans and non- Americans. The National Kidney Disease Education Program (NKDEP) does not endorse the use of the MDRD equation for patients that are not between the ages of 18 and 70, are , have extremes of body size, muscle mass, or nutritional status, or are non- or non-. According to the National Kidney Foundation, irrespective of diagnosis, the stage of the disease is based on the level of kidney function: Stage Description GFR(mL/min/1.73 m(2)) 1 Kidney damage with normal or decreased GFR 90 2 Kidney damage with mild decrease in GFR 60-89 3 Moderate decrease in GFR 30-59 4 Severe decrease in GFR 15-29 5 Kidney failure <15 (or dialysis) 6 Because ethnic data is not always readily available, this report includes an eGFR for both -Americans and non- Americans. The National Kidney Disease Education Program (NKDEP) does not endorse the use of the MDRD equation for patients that are not between the ages of 18 and 70, are , have extremes of body size, muscle mass, or nutritional status, or are non- or non-. According to the National Kidney Foundation, irrespective of diagnosis, the stage of the disease is based on the level of kidney function: Stage Description GFR(mL/min/1.73 m(2)) 1 Kidney damage with normal or decreased GFR 90 2 Kidney damage with mild decrease in GFR 60-89 3 Moderate decrease in GFR 30-59 4 Severe decrease in GFR 15-29 5 Kidney failure <15 (or dialysis) 7 Acute inflammation: >10.00 8 Because ethnic data is not always readily available, this report includes an eGFR for both -Americans and non- Americans. The National Kidney Disease Education Program (NKDEP) does not endorse the use of the MDRD equation for patients that are not between the ages of 18 and 70, are , have extremes of body size, muscle mass, or nutritional status, or are non- or non-. According to the National Kidney Foundation, irrespective of diagnosis, the stage of the disease is based on the level of kidney function: Stage Description GFR(mL/min/1.73 m(2)) 1 Kidney damage with normal or decreased GFR 90 2 Kidney damage with mild decrease in GFR 60-89 3 Moderate decrease in GFR 30-59 4 Severe decrease in GFR 15-29 5 Kidney failure <15 (or dialysis) 9 Acute inflammation: >10.00 10 Because ethnic data is not always readily available, this report includes an eGFR for both -Americans and non- Americans. The National Kidney Disease Education Program (NKDEP) does not endorse the use of the MDRD equation for patients that are not between the ages of 18 and 70, are , have extremes of body size, muscle mass, or nutritional status, or are non- or non-. According to the National Kidney Foundation, irrespective of diagnosis, the stage of the disease is based on the level of kidney function: Stage Description GFR(mL/min/1.73 m(2)) 1 Kidney damage with normal or decreased GFR 90 2 Kidney damage with mild decrease in GFR 60-89 3 Moderate decrease in GFR 30-59 4 Severe decrease in GFR 15-29 5 Kidney failure <15 (or dialysis) 11 Acute inflammation: >10.00 Procedures Date CPT Code Description Status 12/26/2017 24664 Moderate Sedation Services; Same Phys Intl 15 Mins; PT Completed >=5 Years 12/26/2017 45223 Color Flow Doppler/Interp & Reprt Completed 12/26/2017 37885 Pulse Wave/Continuous-Interp.RPT Completed 12/26/2017 75381 Echocardiography, Transesophageal, Real Time W/Image 2D Completed W/W/O M-M 11/14/2017 50039 Moderate Sedation Services; Same Phys Each Additional Completed 15 Mins 11/14/2017 25958 Moderate Sedation Services; Same Phys Intl 15 Mins; PT Completed >=5 Years 11/14/2017 31455 Color Flow Doppler/Interp & Reprt Completed 11/14/2017 68167 Pulse Wave/Continuous-Interp.RPT Completed 11/14/2017 05323 Echocardiography, Transesophageal, Real Time W/Image 2D Completed W/W/O M-M 11/09/2017 84971 ECHO Transthorasic Realtime 2D W Doppler & Color Flow Completed Hosp Encounters Type Date Location Provider CPT E/M Dx Office Visit 01/10/2018 [facility] Agueda Figueroa, 29841 I33.0 10:30a Infectious Diseases M.D. M46.24 Z79.2 Office Visit 12/22/2017 11:30a [facility] Agueda Figueroa, 56507 I33.0 Infectious Diseases M.D. M46.24 Z79.2 Office Visit 11/29/2017 11:30a [facility] Agueda Figueroa, 59369 I33.0 Infectious Diseases M.D. M46.24 M46.44 Z79.2 I48.0 Office Visit 11/14/2017 1:21p [facility] Agueda Figueroa, 31672 I33.0 Infectious Diseases M.D. M46.24 M46.44 Office Visit 11/14/2017 8:45a [facility] Genoveva Lo, 41143 I48.91 Hospitalists D.OTia I33.0 R78.81 M46.04 Office Visit 11/13/2017 12:28p [facility] Agueda Figueroa, 71308 M46.24 Infectious Diseases M.D. M46.44 R78.81 Office Visit 11/13/2017 8:43a [facility] [place] [place] 30165 I48.91 Assoc, Hospitalists MD Josephine R78.81 R14.0 N40.0 Office Visit 11/12/2017 8:41a [facility] [place] 05268 I48.91 Assoc, HospitalMD Kaylyn Cope8.81 R14.0 N40.0 Office Visit 11/11/2017 8:31a [facility] [place] 37645 R78.81 Assoc, Hospitalraysa Burton MD N40.0 K59.00 M54.6 Office Visit 11/10/2017 11:32a [facility] Agueda Delciden, 43000 M46.24 Infectious Diseases M.D. M46.44 R78.81 Office Visit 11/10/2017 8:30a [facility] [place]íbal [place] 20381 R78.81 Assoc,pc Hospitalists MD Josephine N40.0 K59.00 M54.6 Office Visit 11/09/2017 11:23a [facility] Diego Figueroa, 56773 M46.24 Infectious Diseases M.D. 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 at [facility] Zlsjpkmd42/21/2018 10:30 am - Diego Figueroa M.D. at [facility] Aakbmnsx70/01/2018 - Diego Figueroa M.D.M54.6 Pain in thoracic spineFollow up:1 wxxjdV00.24 Osteomyelitis of vertebra, thoracic ywkgcuS37.2 FPC (current) use of antibiotics
[2018-02-10 12:00] LABS: Urine Appearance Clear; Urine Blood Negative (Negative); Urine Color Yellow; Urine Ketones Negative (Negative); Urine Protein Negative (Negative); Urine Specific Gravity 1.009 (1.010-1.030); Urine Urobilinogen Negative (Negative)
[2018-02-10] MEDS ORDERED: Vancomycin(*) 1,000 MG - ED ONCE IVPB ONE ×2 (12:00)
[2018-02-10] MEDS ORDERED: Acetaminophen TAB* 325 MG PO ONE (12:00)
[2018-02-10] MEDS ORDERED: Ondansetron INJ* 2 MG/ML VIAL IV PRN (13:23)
[2018-02-10] MEDS ORDERED: Acetaminophen TAB* 325 MG PO PRN (13:23)
[2018-02-10] MEDS ORDERED: cefTRIAXone(*) 1 GM in NS 0.9% 50 ML* 50 ML IVPB SCH (13:24)
[2018-02-10] MEDS ORDERED: Vancomycin(*) 1,000 MG in NS 0.9% 250 ML* 250 ML IVPB SCH (13:24)
[2018-02-10] MEDS ORDERED: cefTRIAXone(*) 2 GM in NS 0.9% 50 ML* 50 ML IVPB SCH (13:26)
[2018-02-10] MEDS ORDERED: NS 0.9% 1000 ML* 1,000 ML IV SCH (13:30)
[2018-02-10] MEDS ORDERED: Vancomycin per Pharmacy* NOTE FOLLOW UP SCH ×2 (14:00→15:00)
[2018-02-10] MEDS: Heparin VIAL(*) 5000 UNITS/ML VIAL (FIVE THOUSAND) SUBCUT SCH ×2 (16:05→22:30)
--- NOTE | 2018-02-10 16:10 | HP ---
CC: Dr. Mendez; Dr. Colon HISTORY AND PHYSICAL: DATE OF ADMISSION: 02/10/18. PRIMARY CARE PROVIDER: Dr. Colon. ATTENDING PHYSICIAN WHILE IN THE HOSPITAL: Dr. Juju Seymour (report being dictated by Jason Nails NP). CONSULTING ID SPECIALIST: Dr. Mendez. CHIEF COMPLAINT: Back pain. HISTORY OF PRESENT ILLNESS: Mr. Fairchild is 67-year-old male patient who was recently diagnosed in October with endocarditis and osteomyelitis. He says he completed a 6 week course of IV antibiotics and now, he had been on an additional course of Keflex and Levaquin. He noticed when he transitioned from the IV to p.o. antibiotics he stated having worsening discomfort in his mid back area just little bit lower than where his previous pain was. He noted the pain was just getting worse. He had been following closely with Dr. Mendez. Dr. Mendez had added Levaquin and hopes that this would help. Unfortunately, he still continued to have pain. An MRI was obtained this week, which did show slightly worsening edema and possible worsening osteomyelitis of his thoracic spine, where his issue had been previously. He denies any neurological deficits. There has been no weakness. He has had no weakness to lower extremities. Denied any numbness or tingling to the mid abdominal area. He denied having any chest pain or shortness. Denied having any difficulty breathing. He denied having any abdominal discomfort. He denied having any weaknesses to his upper or lower extremities. He says the pain was just getting worse. He noted that at times when he bent forward that he would at times have discomfort. He denied having any difficulty with bowel or bladder and denied having any fevers or chills, but he is concerned because the pain he notices is slowly increasing particularly over the last several days. He came into the ED today after it was noted that on an outpatient MRI findings there appeared to be slightly worsening edema possibly worsening osteomyelitis of the thoracic spine at T6-7. So, he was referred to the ER for evaluation. PAST MEDICAL HISTORY: Significant for: 1. BPH. 2. Osteomyelitis. 3. Endocarditis. 4. History of paroxysmal atrial fibrillation. PAST SURGICAL HISTORY: Denied. HOME MEDICATIONS: Include: 1. Flomax 0.8 mg daily. 2. Probiotic 1 capsule daily. 3. B12 500 mcg daily. 4. Proscar 5 mg daily. 5. Osteo Bi-Flex 1 tablet daily. 6. Ibuprofen 200 mg every 6 hours as needed. 7. Probiotic 1 capsule daily. 8. B6 100 mg daily. 9. Thiamine 100 mg daily. 10. He was on Levaquin 1 tablet p.o. daily. 11. Keflex 1 tablet t.i.d. ALLERGIES TO MEDICATIONS: Include BACTRIM and IV DYE. FAMILY HISTORY: Mother had a history of COPD, father had a history of leukemia. SOCIAL HISTORY: Does not smoke, does not drink. 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 Surrogate decision maker is his . REVIEW OF SYSTEMS: There is no documented fever. Denies having any significant weight change. There was some double vision. He denies having any ear discharge. There was no rhinorrhea. There is no sore throat, no thyroid enlargement. He again denied having any chest pain. There is no orthopnea. There is some nocturnal dyspnea. Denies having any abdominal discomfort. No nausea, no vomiting. No dysuria, no frequency. No seizure, no loss of consciousness. No pruritus and no skin ulceration. Review of 14 systems was completed, all others negative. PHYSICAL EXAMINATION GENERAL: At this time, Mr. Fairchild is a 67-year-old male patient. He appears to be well nourished and well developed. He is sitting in the ED stretcher. He does not appear to be in acute distress. VITAL SIGNS: Reveals blood pressure 155/82, pulse 75, respirations 18, O2 sat 97%, temperature 97.3. HEENT: Head, atraumatic and normocephalic. Eyes: EOMs are intact. Sclerae anicteric and not pale. Throat: Oral mucosa appears to be moist. No oropharyngeal erythema. NECK: Supple. LUNGS: Clear to auscultation bilaterally. No wheezes, rales, or rhonchi. HEART: Sounds S1, S2. He had a regular rate and rhythm. No murmurs, rubs or gallops. ABDOMEN: Soft, flat, nontender. Bowel sounds are present. EXTREMITIES: Pulses were 2+ throughout. He is moving all 4 extremities with 5/ 5 strength. NEUROLOGIC: The patient is awake. He is alert. He is oriented x3. His tongue is midline. Real Estate Rental Agent are equal and no gross focal deficits. SKIN: Intact. DIAGNOSTIC STUDIES/LAB DATA: Labs today are revealing WBC of 7.1, RBC of 5.23 , hemoglobin of 16.1, hematocrit of 46, and platelet count of 205, ESR was 10. INR 0.92, PTT of 31.7. Sodium was 137, potassium was 3.9, chloride of 106, bicarb 24, BUN 15, creatinine of 0.98, glucose 110, lactic acid 1.4, calcium 9.5 , total bilirubin 0.6, AST 19, ALT 16, alk phos 55, troponin 0.00. CRP of 2.48 , albumin of 4.3. Urine was obtained, it was negative. He did have again outpatient thoracic MRI, impression: End-plate changes at T6, 7 similar to that seen on previous exam although edema appears to be slightly increased. Disk space appears to be more narrowed than was noted previously. There is extension into the right pedicle at T7. This may be result of osteomyelitis. No epidural mass is noted currently. Chest x-ray showed no acute cardiopulmonary disease. He had an EKG which showed a normal sinus rhythm rate of 78, no ST elevation or T- wave inversions. He had a transesophageal echo done on 12/26/17, which showed mitral valve vegetation appeared to be no longer present. Old medical records reviewed. ASSESSMENT AND PLAN: Mr. Brower is a 67-year-old male patient with a complex medical history coming into the ED today with complaints of worsening back discomfort with a previous history of osteomyelitis and now thoracic spine MRI showing possible worsening edema, possible worsening osteomyelitis. We were asked to evaluate for admission. He will be admitted under inpatient status for : 1. Osteomyelitis of the thoracic spine. At this point, I do have a call to Dr. Mendez. I am going to go ahead and put him back on IV Rocephin 2 mg daily and vancomycin. Blood cultures have been sent. We will await for further recommendations from Dr. Mendez. His pain is little bit lower than what he normally had with his previous evaluation. We may need to consider doing a lumbar MRI, possibly repeating the KATELYN. I would like to wait blood cultures. I will get the patient on IV antibiotics and we will continue to follow him closely. He is not having any neurological deficit. He states that the pain is now gone with Tylenol. 2. Benign prostatic hyperplasia. Continue medications as prescribed. 3. History of endocarditis. Again, he is going to be on IV antibiotics. Blood cultures have been sent. 4. History of atrial fibrillation, not an active issue. Currently, he is in sinus rhythm. We will follow. 5. DVT prophylaxis: I have ordered heparin subcu. 5. Code status: Full code. 6. Fluids, electrolytes, and nutrition: He can have a regular diet. TIME SPENT: On the admission was 60 minutes, greater than half time was spent face- to-face with the patient, obtaining my history and physical, the other half time was spent going over the plan of care with the patient and implementing the plan of care. I did discuss the plan of care with my attending, Dr. Seymour; she is in agreement. JASON NAILS, ANGELIC [id number]/[facility] #: [id number] MTDClaudia
[2018-02-10] MEDS: Vancomycin(*) 1,000 MG in NS 0.9% 250 ML* 250 ML IVPB SCH (20:12)
[2018-02-10] MEDS ORDERED: Simethicone TAB* 80 MG TAB.CHEW PO PRN (20:27)
[2018-02-10] MEDS: Zolpidem TAB* 10 MG PO PRN (22:30)
[2018-02-11] MEDS: Vancomycin(*) 1,000 MG in NS 0.9% 250 ML* 250 ML IVPB SCH ×3 (05:20→21:39)
[2018-02-11] MEDS: Heparin VIAL(*) 5000 UNITS/ML VIAL (FIVE THOUSAND) SUBCUT SCH ×3 (05:21→22:04)
[2018-02-11 07:18] LABS: ABS Basophils 0 10^3/ul (0-0.2); ABS Eosinophils 0.1 10^3/ul (0-0.6); ABS Lymphocytes 0.5 10^3/ul (1.0-4.8); ABS Monocytes 0.6 10^3/ul (0-0.8); ABS Neutrophils 4.4 10^3/ul (1.5-7.7); ABS Nucleated RBC 0 10^3/ul; Eosinophil % 2.2 % (0-6); Hematocrit 41 % (42-52); Hemoglobin 14.2 g/dl (14.0-18.0); Lymphocyte % 9.2 % (25-47); Mean Corpuscular HGB Conc 35 g/dl (31-36); Mean Corpuscular Hemoglobin 31 pg (27-31); Mean Corpuscular Volume 89 fL (80-94); Mean Platelet Volume 8.2 um3 (7.4-10.4); Nucleated Red Blood Cells % 0.1; Platelet Count 151 10^3/ul (150-450); Red Cell Distribution Width 13 % (10.5-15); White Blood Count 5.7 10^3/ul (3.5-10.8)
[2018-02-11 07:26] LABS: EGFR Non-African American 80.8 (>60)
[2018-02-11] MEDS ORDERED: Linezolid 600 MG IVPREMIX(*) 600 MG/300 ML BAG IVPB SCH (09:00)
[2018-02-11] MEDS: Tamsulosin CAP* 0.4 MG PO SCH (09:49)
[2018-02-11] MEDS: Lactobacillus Acidophilus* 1 TAB PO SCH (09:50)
[2018-02-11] MEDS: Finasteride TAB* 5 MG PO SCH (09:50)
--- NOTE | 2018-02-11 10:49 | PN ---
Subjective Date of Service: 02/11/18 Interval History: Pain in back sl better today. No chills, sweats. No bowel c/o. No new c/o. Objective Active Medications: Finasteride (Proscar Tab*) 5 mg PO DAILY [facility] Last Admin: 02/11/18 09:50 Dose: 5 mg Heparin Sodium (Porcine) (Heparin Vial(*)) 5,000 units SUBCUT Q8HR [facility] Last Admin: 02/11/18 05:21 Dose: 5,000 units Vancomycin HCl 1,000 mg/ (Sodium Chloride) 250 mls @ 166.667 mls/hr IVPB Q8H PADMA; Protocol Last Admin: 02/11/18 05:20 Dose: 166.667 mls/hr Ceftriaxone Sodium 2 gm/ (Sodium Chloride) 100 mls @ 400 mls/hr IVPB 1100 PADMA Lactobacillus Rhamnosus (Lactobacillus Acidophilus*) 1 tab PO DAILY [facility] Last Admin: 02/11/18 09:50 Dose: 1 tab Ondansetron HCl (Zofran Inj*) 4 mg IV Q6H PRN PRN Reason: NAUSEA Pharmacy Consult (Vancomycin Per Pharmacy*) 1 note FOLLOW UP .VANC PER PHARMACY [facility] Pharmacy Profile Note (Vancomycin Trough Check) 1 note FOLLOW UP 1300 ONE Stop: 02/11/18 13:01 Simethicone (Mylicon Tab*) 80 mg PO Q6H PRN PRN Reason: INDIGESTION Last Admin: 02/10/18 20:52 Dose: 80 mg Tamsulosin HCl (Flomax Cap*) 0.8 mg PO DAILY [facility] Last Admin: 02/11/18 09:49 Dose: 0.8 mg Zolpidem Tartrate (Ambien Tab*) 10 mg PO BEDTIME PRN PRN Reason: INSOMNIA Last Admin: 02/10/18 22:30 Dose: 10 mg Vital Signs - 8 hr 02/11/18 02/11/18 03:16 07:32 Temperature 97.9 F 97.6 F Pulse Rate 69 70 Respiratory 18 16 Rate Blood Pressure 132/68 139/72 (mmHg) O2 Sat by Pulse 98 99 Oximetry Oxygen Devices in Use Now: None Appearance: Alert, sitting on the edge of his bed. In good spirits. Looks comfortable. Eyes: No Scleral Icterus Respiratory: Symmetrical Chest Expansion and Respiratory Effort, Clear to Auscultation, Clear to Percussion Cardiovascular: NL Sounds; No Murmurs; No JVD, RRR, No Edema Extremities: No Edema, No Clubbing, Cyanosis, - - No spinal tenderness. Skin: No Rash or Ulcers, No Nodules or Sclerosis, - Neurological: Alert and Oriented x 3, NL Sensation Result Diagrams: 02/11/18 06:49 02/11/18 06:49 Assess/Plan/Problems-Billing Assessment: - Patient Problems (1) Back pain Current Visit: Yes Status: Acute Code(s): M54.9 - DORSALGIA, UNSPECIFIED SNOMED Code(s): 397119656 Comment: ? persistent osteomyelitis vs non-specific back pain related to prior infection. Continue ceftriaxone/vancomycin. I will discuss with Dr. Mendez 02/12. (2) Benign enlargement of prostate Current Visit: No Status: Chronic Code(s): N40.0 - BENIGN PROSTATIC HYPERPLASIA WITHOUT LOWER URINRY TRACT SYMP SNOMED Code(s): 136928176 Comment: Continue finasteride, tamsulosin.
[2018-02-11] MEDS: cefTRIAXone(*) 2 GM in NS 0.9% 100 ML* 100 ML IVPB SCH (10:51)
[2018-02-11] MEDS ORDERED: Vancomycin Trough Check NOTE FOLLOW UP ONE (13:00)
[2018-02-11] MEDS ORDERED: Polyethylene Glycol 3350* 17 GM PACKET PO SCH ×2 (17:00→20:00)
[2018-02-11] MEDS: Zolpidem TAB* 10 MG PO PRN (23:07)
[2018-02-12] MEDS: Vancomycin(*) 1,000 MG in NS 0.9% 250 ML* 250 ML IVPB SCH (04:48)
[2018-02-12] MEDS: Heparin VIAL(*) 5000 UNITS/ML VIAL (FIVE THOUSAND) SUBCUT SCH (04:49)
[2018-02-12] MEDS: Finasteride TAB* 5 MG PO SCH (09:15)
[2018-02-12] MEDS: Lactobacillus Acidophilus* 1 TAB PO SCH (09:15)
[2018-02-12] MEDS: Tamsulosin CAP* 0.4 MG PO SCH (09:15)
[2018-02-12] MEDS: cefTRIAXone(*) 2 GM in NS 0.9% 100 ML* 100 ML IVPB SCH (10:41)
[2018-02-12] MEDS ORDERED: Vancomycin Trough Check NOTE FOLLOW UP ONE (12:30)
[2018-02-12 13:01] VITALS: BP 141/73
--- NOTE | 2018-02-12 14:54 | PN ---
Progress Note - Progress Note Date of Service: 02/12/18 Note: Time spent on discharge 50 minutes, including exam of patient, discussion with patient, , CM, Dr. Mendez, nurse, and review of EMR and peparation of discharge documents.
--- NOTE | 2018-02-23 12:18 | DS ---
CC: Dr. Ambrosio Colon; Dr. Mendez DISCHARGE SUMMARY: DATE OF ADMISSION: DATE OF DISCHARGE: 02/12/18 HOSPITAL COURSE: Mr. Brower presented with a history of increasing back pain since the ceftriaxone was discontinued a few weeks ago. He was changed to oral antibiotics, but he felt the back pain inc reased anyway. He was recently diagnosed as having thoracic osteomyelitis and endocarditis with Rogelio baptiste. During this admission, his white count, temperature, and CRP were all within normal limits. Multiple blood cultures were obtained. The patient was given intravenous antibiotics during his hospital stay. Dr. Mendez saw him on the day of discharge and is planning on giving him a month of ceftriaxone 2 g daily. This will be given at the infusion center and initial dose was given before the discharge. FINAL DIAGNOSES: 1. Back pain. 2. History of endocarditis and thoracic osteomyelitis. 3. Benign prostatic hypertrophy. 4. Paroxysmal atrial fibrillation. DISCHARGE MEDICATIONS: 1. Glucosamine D3-Boswellia 1 tablet daily. 2. Pyridoxine 100 mg daily. 3. Vitamin B12 500 mcg daily. 4. Tamsulosin 0.8 mg daily. 5. Finasteride 5 mg daily. 6. Ibuprofen 200 mg every 6 hours p.r.n. 7. Probiotic 1 daily. 8. Ceftriaxone 2 g IV q.24 hours. DISCHARGE CONDITION: Stable. DISCHARGE DISPOSITION: Home. [id number]/[facility] #: [id number]
== END 2018-02-12 14:45 | disposition home or self-care (01) | DRG 541 ==
LOC: ED 10:18 → MED 13:21
PROVIDERS: ADMIT Internal Medicine; ATTEND Internal Medicine
DX: M46.24 Osteomyelitis of vertebra, thoracic region (principal); M54.9 Dorsalgia, unspecified; N40.0 Benign prostatic hyperplasia without lower urinary tract symptoms; I48.0 Paroxysmal atrial fibrillation; Z79.2 Long term (current) use of antibiotics; Z79.899 Other long term (current) drug therapy; Z88.1 Allergy status to other antibiotic agents; Z91.041 Radiographic dye allergy status; Z82.5 Family history of asthma and other chronic lower respiratory diseases; Z80.6 Family history of leukemia
CPT/HCPCS: 36415; 71045; 72146; 80048; 80053; 80202; 81003; 83605; 84484; 85025; 85610; 85652; 85730; 86140; 86480; 87040; 93005; 99284; A9270-GY; J0696; J1644; J2543; J3370

== ENCOUNTER 2019-08-18 10:14 | Emergency (ER) | payer MEDICARE ==
--- NOTE | 2019-08-18 10:26 | ED ---
Influenza-Like Illness - HPI Summary HPI Summary: 68 y/o male presented to [facility] for dehydration related to suspected flu. Pt believes he has had the flu since 08/13/19 but has not been tested. Pt notes weakness and decreased oral intake, but no V/D. He notes a cough after taking deep breaths. Pt has not been out of the country recently and does not know if he has been exposed to others with the flu. Pt has hx of prostate issues, and denies hx of asthma or smoking. He sees Dr. Colon. - History of Current Complaint Chief Complaint: EDFluSymptoms Time Seen by Provider: 08/18/19 10:22 Hx Obtained From: Patient Onset/Duration: Lasting Days, Still Present Severity: Mild Associated Signs & Symptoms: Cough - after deep breaths Related Hx: Possible Flu/Infectious Exposure - unknown - Allergy/Home Medications Allergies/Adverse Reactions: Allergies Allergy/AdvReac Type Severity Reaction Status Date / Time Iodinated Contrast Media Allergy Hives Verified 08/18/19 10:19 [Iodinated Contrast- Oral and IV Dye] sulfamethoxazole Allergy Hives Verified 08/18/19 10:19 [From Bactrim] trimethoprim [From Bactrim] Allergy Hives Verified 08/18/19 10:19 IV contrast Allergy Unknown Hives Uncoded 08/18/19 10:19 Home Medications: Home Medications Cyanocobalamin TAB* [Vitamin B12 TAB*] 500 mcg PO DAILY 11/06/17 [History Confirmed 08/18/19] Finasteride TAB* [Proscar TAB*] 5 mg PO DAILY 11/06/17 [History Confirmed ] Glucosamine/D3/Boswellia Deja [Osteo Bi-Flex Tablet] 1 tab PO DAILY 11/06/17 [ History Confirmed 08/18/19] Pyridoxine TAB* [Vitamin B6 TAB*] 100 mg PO DAILY 11/06/17 [History Confirmed ] Tamsulosin CAP* [Flomax CAP*] 0.8 mg PO DAILY 11/06/17 [History Confirmed ] Ibuprofen TAB* [Advil TAB*] 200 mg PO Q6H PRN tab 11/14/17 [Rx Confirmed ] L.acidoph,Paracasei, B.lactis [Probiotic] 1 each PO DAILY 12/25/17 [History Confirmed 08/18/19] Amoxicillin/Clavulanate TAB* [Augmentin TAB 500 mg*] 2,000 mg PO BID 5 Days #40 tab 08/18/19 [Rx] Azithromycin TAB* [Zithromax TAB (Z-VERA) 250 mg #6 tabs] 250 mg PO DAILY 4 Days #4 tab 08/18/19 [Rx] PMH/Surg Hx/FS Hx/Imm Hx Endocrine/Hematology History: Denies: Hx Anticoagulant Therapy, Hx Blood Disorders, Hx Diabetes Cardiovascular History: Reports: Hx Hypercholesterolemia - resolved with diet, Other Cardiovascular Problems/Disorders - Endocarditis Denies: Hx Aneurysm, Hx Coronary Artery Disease, Hx Hypertension - resolved with diet, Hx Myocardial Infarction, Hx Pacemaker/ICD, Hx Valvular Heart Disease Respiratory History: Denies: Hx Asthma, Hx Chronic Obstructive Pulmonary Disease (COPD), Hx Pneumonia GI History: Reports: Hx Irritable Bowel - treating with diet changes History: Reports: Hx Benign Prostatic Hyperplasia, Other Problems/ Disorders - h/o prostate infection Denies: Hx Renal Disease Musculoskeletal History: Reports: Hx Back Problems - T spine Osteomyelitis, Other Musculoskeletal History - Hx degenerative disc disease Sensory History: Reports: Hx Contacts or Glasses Denies: Hx Hearing Aid, Other Sensory Impairments Opthamlomology History: Reports: Hx Contacts or Glasses Denies: Other Sensory Impairments Psychiatric History: Denies: Hx Panic Disorder Infectious Disease History: No Infectious Disease History: Denies: Hx Clostridium Difficile, Hx Hepatitis, Hx Human Immunodeficiency Virus (HIV), Hx of Known/Suspected MRSA, Traveled Outside the [place] in Last 30 Days - Family History Known Family History: Positive: Hypertension - Father, Diabetes - Uncle - Social History Alcohol Use: None Alcohol Amount: wine with dinner Hx Substance Use: No Substance Use Type: Reports: None Hx Tobacco Use: No Smoking Status (MU): Former Smoker Type: Cigarettes Have You Smoked in the Last Year: No Review of Systems Positive: Other - weakness Positive: Cough Positive: Other - decreased oral intake. Negative: Vomiting, Diarrhea All Other Systems Reviewed And Are Negative: Yes Physical Exam - Summary Physical Exam Summary: Constitutional: Well-developed, Well-nourished, Alert. (-) Distressed Skin: Warm, Dry HENT: Normocephalic; Atraumatic Eyes: Conjunctiva normal Neck: Musculoskeletal ROM normal neck. (-) JVD, (-) Stridor, (-) Tracheal deviation Cardio: Rhythm regular, rate normal, Heart sounds normal; Intact distal pulses; The pedal pulses are 2+ and symmetric. Radial pulses are 2+ and symmetric. (-) Murmur Pulmonary/Chest wall: Effort normal. (-) Respiratory distress, (-) Wheezes, (-) Rales, Crackles in right lung base, Dry cough Abd: Soft, (-) tenderness, (-) Distension, (-) Guarding, (-) Rebound Musculoskeletal: (-) Edema Lymph: (-) Cervical adenopathy Neuro: Alert, Oriented x3 Psych: Mood and affect Normal Triage Information Reviewed: Yes Vital Signs On Initial Exam: Initial Vitals Temp Pulse Resp BP Pulse Ox 99.1 F 78 17 178/84 97 08/18/19 10:16 08/18/19 10:16 08/18/19 10:16 08/18/19 10:16 08/18/19 10:16 Vital Signs Reviewed: Yes Procedures - Sedation Patient Received Moderate/Deep Sedation with Procedure: No Diagnostics - Vital Signs Vital Signs Temp Pulse Resp BP Pulse Ox 08/18/19 10:16 99.1 F 78 17 178/84 97 - Laboratory Lab Statement: Any lab studies that have been ordered have been reviewed, and results considered in the medical decision making process. - Radiology cxr Radiology Interpretation Completed By: Radiologist Summary of Radiographic Findings: IMPRESSION: PATCHY AIRSPACE DISEASE OF THE RIGHT LUNG BASE. This report was reviewed by Dr. Dillon. Flu Symptom Course/Dx - Course Course Of Treatment: 68 y/o male presented to [facility] for dehydration related to suspected flu. Pt believes he has had the flu since 08/13/19 but has not been tested. Pt notes weakness and decreased oral intake, but no V/D. He notes a cough after taking deep breaths. Pt has not been out of the country recently and does not know if he has been exposed to others with the flu. Exam showed crackles in right lung base, dry cough. X-ray chest showed PATCHY AIRSPACE DISEASE OF THE RIGHT LUNG BASE. Flu test showed Flu A positive. Pt was given 500mg PO Zithromax, 1g IM Rocephin in the ED and scripts for azithromycin and high-dose Augmentin. - Diagnoses Provider Diagnoses: Influenza, Pneumonia Discharge ED - Sign-Out/Discharge Documenting (check all that apply): Patient Departure - dc - Discharge Plan Condition: Stable Disposition: HOME Prescriptions: Amoxicillin/Clavulanate TAB* [Augmentin TAB 500 mg*] 2,000 mg PO BID 5 Days #40 tab Azithromycin TAB* [Zithromax TAB (Z-VERA) 250 mg #6 tabs] 250 mg PO DAILY 4 Days #4 tab Patient Education Materials: Influenza (ED), Pneumonia (ED) Referrals: Ambrosio Colon MD [Primary Care Provider] - Additional Instructions: Follow up with your primary care provider in 2-3 days. If you experience new or worsening symptoms please return to the ER. - Billing Disposition and Condition Condition: STABLE Disposition: Home - Attestation Statements Document Initiated by Jorgeibcarmelo: Yes Documenting Scribe: Mejia Puga Provider For Whom Vic is Documenting (Include Credential): Berry Dillon DO Scribe Attestation: Mejia Horne scribed for Berry Dillon DO on 08/18/19 at 1243. Scribe Documentation Reviewed: Yes Provider Attestation: The documentation as recorded by the jorgeibMejia rhodes accurately reflects the service I personally performed and the decisions made by Berry joaquin DO Status of Scribcarmelo Document: Viewed
--- OUTSIDE RECORDS SUMMARY | 2019-08-18 10:27 | XMS REPORT | Continuity of Care Document ---
:1950 External Reference #:[id number] Author Name Leticia Cosby O.D. Address [address] [place] [address] Care Team Providers Name Role Phone Ambrosio Colon M.D. 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 Onset: 12/20/2017 Hypermetropia Leticia Cosby O.D. Onset: 07/09/2019 Presbyopia Leticia Cosby O.D. Onset: 07/09/2019 Regular astigmatism Leticia Cosby O.D. Onset: 07/09/2019 Social History Type Date Description Comments Sex Unknown ETOH Use Rarely consumes wine Tobacco Use Start: Unknown End: Patient is a former stopped age 23 Unknown smoker Recreational Drug Use Denies Drug Use Smoking Status Reviewed: 07/09/19 Patient is a former stopped age 23 smoker Allergies, Adverse Reactions, Alerts Active Allergies Reaction Severity Comments Date Bactrim 12/20/2017 Iodinated Diagnostic Agents 12/20/2017 Medications Active Medications SIG Qnty Indications Ordering Provider Date Tamsulosin HCL Take 1 Capsule By Unknown 0.4mg Mouth Two Times Capsules Daily Finasteride Take 1 Tablet By Unknown 5mg Tablets Mouth Every Day Immunizations Description No Information Available Vital Signs Description No Information Available Results Description No Information Available Procedures Date Code Description Status 04/30/2019 47375 Est Patient Comprehensive Exam Completed Medical Devices Description No Information Available Encounters Description No Information Available Assessments Date Code Description Provider 07/09/2019 H52.223 Regular astigmatism, bilateral Leticia Cosby O.D. 07/09/2019 H52.4 Presbyopia Leticia Cosby O.D. 07/09/2019 H52.03 Hypermetropia, bilateral Leticia Cosby O.D. 04/30/2019 H43.813 Vitreous degeneration, bilateral Leticia Cosby O.D. Plan of Treatment 07/09/2019 - Leticia Cosby O.D.H52.223 Regular astigmatism, bilateralComments: Astigmatism is a common vision condition that happens when a person's cornea is not symmetrical. Dr. Cosby has given you a prescription to correct for this.Follow up: [id number] PresbyopiaComments:You have presbyopia. This is when the lens in your eye loses the ability to change focus, and happens as we age. A pair of reading glasses will help you see up close.H52.03 Hypermetropia, bilateralComments:Smoking can increase the risk of developing or worsening any eye related disease, as well as affect your overall health. If you are a smoker, we strongly recommend that you quit.If you are not a smoker, we strongly recommend that you do not start. You have Hyperopia, or far sightedness, I have givenyou a prescription for glasses. Functional Status Description No Information Available Mental Status Description No Information Available Referrals Description No Information Available
[2019-08-18] MEDS ORDERED: cefTRIAXone VIAL(*) 1,000 MG VIAL IM ONE (10:54)
[2019-08-18] MEDS ORDERED: Lidocaine 1% MPF ** 5 ML VIAL IM ONE (10:54)
[2019-08-18] MEDS ORDERED: Azithromycin TAB* 250 MG PO ONE (10:55)
[2019-08-18 11:07] LABS: Influenza A Molecular POSITIVE (Negative)
[2019-08-18 11:35] VITALS: BP 165/88
== END 2019-08-18 11:34 | disposition home or self-care (01) ==
LOC: ED 10:14
DX: J11.1 Influenza due to unidentified influenza virus with other respiratory manifestations (principal); J18.9 Pneumonia, unspecified organism; E86.0 Dehydration; R53.1 Weakness; N40.0 Benign prostatic hyperplasia without lower urinary tract symptoms; E78.00 Pure hypercholesterolemia, unspecified; R05 Cough; Z87.891 Personal history of nicotine dependence; Z88.2 Allergy status to sulfonamides
CPT/HCPCS: 71046; 96372; 99283; A9270-GY; J0696

== ENCOUNTER 2019-09-01 18:25 | Emergency (ER) | payer MEDICARE ==
[2019-09-01] MEDS ORDERED: NS 0.9% 1000 ML** 1,000 ML IV ONE (18:36)
[2019-09-01] MEDS ORDERED: Magnesium CITRATE* 300 ML BTL PO ONE (18:45)
--- NOTE | 2019-09-01 18:50 | ED ---
Abdominal Pain/Male - HPI Summary HPI Summary: This pt is a 68 Y/O M presenting to [facility] with a CC of constipation that began on 08/29/2019 and without relief. He states that he has been unable to sleep and has been taking medicine to help him sleep which he states constipates him. He also reports that he has not been taking mirilax as he usually does. Today he tried to go to the bathroom and began bleeding. He states that he was unable to use digital stimulation to remove his stool without good effect. He also states that he tried 3 enemas without effect. He also reports and inability to urinate. He also reports abdominal pain that is rated a 4/10 in severity. He denies any fevers, headaches, chills, N/V, CP, and SOB. He states that he last urinate at 1230 and is scared to try again due to fears of more stool building up. He denies any alleviating factors. He states that urination aggravates his symptoms. He has a PMHx of prostate infections and irritable bowel syndrome. - History of Current Complaint Chief Complaint: [place] Stated Complaint: ABD PAIN , Time Seen by Provider: 09/01/19 18:35 Hx Obtained From: Patient Onset/Duration: Sudden Onset, Lasting Days - 3, Still Present Timing: Constant, Lasting Days - 3 Severity Initially: Mild Severity Currently: Mild Pain Intensity: 4 Pain Scale Used: 0-10 Numeric Location: Other - rectum Radiates: No Character: Other: - constipation Aggravating Factor(s): Other: - urinating Alleviating Factor(s): Nothing Associated Signs And Symptoms: Positive: Negative - headaches, chills, and SOB, Constipation, Blood in Stool, Urinary Symptoms. Negative: Fever, Chest Pain, Back Pain, Nausea, Vomiting, Diarrhea - Allergies/Home Medications Allergies/Adverse Reactions: Allergies Allergy/AdvReac Type Severity Reaction Status Date / Time Iodinated Contrast Media Allergy Hives Verified 09/01/19 18:34 [Iodinated Contrast- Oral and IV Dye] sulfamethoxazole Allergy Hives Verified 09/01/19 18:34 [From Bactrim] trimethoprim [From Bactrim] Allergy Hives Verified 09/01/19 18:34 IV contrast Allergy Unknown Hives Uncoded 08/18/19 10:19 Home Medications: Home Medications Cyanocobalamin TAB* [Vitamin B12 TAB*] 500 mcg PO DAILY 11/06/17 [History Confirmed 08/18/19] Finasteride TAB* [Proscar TAB*] 5 mg PO DAILY 11/06/17 [History Confirmed ] Glucosamine/D3/Boswellia Deja [Osteo Bi-Flex Tablet] 1 tab PO DAILY 11/06/17 [ History Confirmed 08/18/19] Pyridoxine TAB* [Vitamin B6 TAB*] 100 mg PO DAILY 11/06/17 [History Confirmed ] Tamsulosin CAP* [Flomax CAP*] 0.8 mg PO DAILY 11/06/17 [History Confirmed ] Ibuprofen TAB* [Advil TAB*] 200 mg PO Q6H PRN tab 11/14/17 [Rx Confirmed ] L.acidoph,Paracasei, B.lactis [Probiotic] 1 each PO DAILY 12/25/17 [History Confirmed 08/18/19] Amoxicillin/Clavulanate TAB* [Augmentin TAB 500 mg*] 2,000 mg PO BID 5 Days #40 tab 08/18/19 [Rx] Azithromycin TAB* [Zithromax TAB (Z-VERA) 250 mg #6 tabs] 250 mg PO DAILY 4 Days #4 tab 08/18/19 [Rx] PMH/Surg Hx/FS Hx/Imm Hx Previously Healthy: Yes Endocrine/Hematology History: Denies: Hx Anticoagulant Therapy, Hx Blood Disorders, Hx Diabetes Cardiovascular History: Reports: Hx Hypercholesterolemia - resolved with diet, Other Cardiovascular Problems/Disorders - Endocarditis Denies: Hx Aneurysm, Hx Coronary Artery Disease, Hx Hypertension - resolved with diet, Hx Myocardial Infarction, Hx Pacemaker/ICD, Hx Valvular Heart Disease Respiratory History: Denies: Hx Asthma, Hx Chronic Obstructive Pulmonary Disease (COPD), Hx Pneumonia GI History: Reports: Hx Irritable Bowel - treating with diet changes History: Reports: Hx Benign Prostatic Hyperplasia, Other Problems/ Disorders - h/o prostate infection Denies: Hx Renal Disease Musculoskeletal History: Reports: Hx Back Problems - T spine Osteomyelitis, Other Musculoskeletal History - Hx degenerative disc disease Sensory History: Reports: Hx Contacts or Glasses Denies: Hx Hearing Aid, Other Sensory Impairments Opthamlomology History: Reports: Hx Contacts or Glasses Denies: Other Sensory Impairments Psychiatric History: Denies: Hx Panic Disorder - Cancer History Hx Chemotherapy: No Hx Radiation Therapy: No - Surgical History Surgical History: None - Immunization History Immunizations Up to Date: Yes Infectious Disease History: No Infectious Disease History: Denies: Hx Clostridium Difficile, Hx Hepatitis, Hx Human Immunodeficiency Virus (HIV), Hx of Known/Suspected MRSA, Traveled Outside the [place] in Last 30 Days - Family History Known Family History: Positive: Hypertension - Father, Diabetes - Uncle - Social History Occupation: Retired Lives: With Family Alcohol Use: None Alcohol Amount: wine with dinner Hx Substance Use: No Substance Use Type: Reports: None Hx Tobacco Use: No Smoking Status (MU): Former Smoker Type: Cigarettes Have You Smoked in the Last Year: No Review of Systems Negative: Fever, Chills Negative: Chest Pain Negative: Shortness Of Breath Positive: Abdominal Pain - rectal, Other - constipation. Negative: Vomiting, Diarrhea, Nausea Positive: other - states inability to urinate due to constipation Negative: Headache All Other Systems Reviewed And Are Negative: Yes Physical Exam - Summary Physical Exam Summary: VITAL SIGNS: Reviewed. GENERAL: Patient is a well-developed and nourished male who is lying comfortable in the stretcher. Patient is not in any acute respiratory distress. HEAD AND FACE: No signs of trauma. No ecchymosis, hematomas or skull depressions. No sinus tenderness. EYES: PERRLA, EOMI x 2, No injected conjunctiva, no nystagmus. EARS: Hearing grossly intact. Ear canals and tympanic membranes are within normal limits. MOUTH: Oropharynx within normal limits. NECK: Supple, trachea is midline, no adenopathy, no JVD, no carotid bruit, no c- spine tenderness, neck with full ROM. CHEST: Symmetric, no tenderness at palpation. LUNGS: Clear to auscultation bilaterally. No wheezing or crackles. CVS: Regular rate and rhythm, S1 and S2 present, no murmurs or gallops appreciated. ABDOMEN: Soft, non-tender. Mildly distended abdomen. No rebound, no guarding, and no masses palpated. Bowel sounds are normal. EXTREMITIES: FROM in all major joints, no edema, no cyanosis or clubbing. NEURO: Alert and oriented x 3. No acute neurological deficits. Speech is normal and follows commands. SKIN: Dry and warm. Triage Information Reviewed: Yes Vital Signs On Initial Exam: Initial Vitals Temp Pulse Resp BP Pulse Ox 98.0 F 118 18 157/93 97 09/01/19 18:32 09/01/19 18:32 09/01/19 18:32 09/01/19 18:32 09/01/19 18:32 Vital Signs Reviewed: Yes Procedures - Sedation Patient Received Moderate/Deep Sedation with Procedure: No Diagnostics - Vital Signs Vital Signs Temp Pulse Resp BP Pulse Ox 09/01/19 18:32 98.0 F 118 18 157/93 97 - Laboratory Result Diagrams: 09/01/19 18:46 09/01/19 18:46 Lab Statement: Any lab studies that have been ordered have been reviewed, and results considered in the medical decision making process. - Radiology Abdominal X-Ray Radiology Interpretation Completed By: ED Physician Summary of Radiographic Findings: Abundant stool and bowl gas. Pending offical review. Abdominal Pain Male Course/Dx - Course Course Of Treatment: This pt is a 68 Y/O M presenting to [facility] with a CC of constipation that began on 08/29/2019 and without relief. He states that he has been unable to sleep and has been taking medicine to help him sleep which he states constipates him. He also reports that he has not been taking mirilax as he usually does. Today he tried to go to the bathroom and began bleeding. He states that he was unable to use digital stimulation to remove his stool without good effect. He also states that he tried 3 enemas without effect. He also reports and inability to urinate. His PE found that he is currently mildly distended without tenderness. Abdominal X-Ray: Abundant stool and bowl gas. He has an elevated WBC count in his labratory findings. Pt was given fluids and magnesium citrate. He had a bowel movement and reports feeling much better. He willbe discharged home with a Dx of constipation. - Diagnoses Provider Diagnoses: Constipation Discharge ED - Sign-Out/Discharge Documenting (check all that apply): Patient Departure - discharge - Discharge Plan Condition: Good Disposition: HOME Patient Education Materials: Polyethylene Glycol 3350 (By mouth), Constipation (ED), High Fiber Diet (ED) Referrals: Ambrosio Colon MD [Primary Care Provider] - 2 Days Additional Instructions: PLEASE FOLLOW UP WITH YOUR PRIMARY CARE PROVIDER IN 1-3 DAYS AND RETURN TO THE EMERGENCY DEPARTMENT FOR ANY NEW OR WORSENING SYMPTOMS. Wehn taking you sleeping medications, please remember to hydrate and take miralax in order to prevent constipation from occurring again. - Billing Disposition and Condition Condition: GOOD Disposition: Home - Attestation Statements Document Initiated by Vic: Yes Documenting Scribe: Сергей Contreras Provider For Whom Vic is Documenting (Include Credential): Berry Dillon MD Scribe Attestation: IеСргей, scribed for Berry Dillon MD on 09/01/19 at 2117. Scribe Documentation Reviewed: Yes Provider Attestation: The documentation as recorded by the Сергей beard accurately reflects the service I personally performed and the decisions made by me, Berry Dillon MD Status of Scribe Document: Viewed
--- OUTSIDE RECORDS SUMMARY | 2019-09-01 18:51 | XMS REPORT | Summary of Care ---
:1950 Author Organization [facility] Address [address] [facility] [place] [address] Care Team Providers Name Role Phone Ambrosio Colon Primary Care Provider Reason for Visit Reason Comments ER F[facility] ER 08/18 flu and pneumonia Encounter Details Date Type Department Care Team Description 08/21/2019 Office Visit [place] Danielle Sarmiento, Community acquired pneumonia of right lower lobe of lung (HCC) (Primary Dx); Practice [employer] Influenza A [address] [place] [address] [place] [address] [phone] Allergies Active Allergy Reactions Severity Noted Date Comments Bactrim Hives 07/23/2007 documented as of this encounter (statuses as of 08/21/2019) Medications Medication Sig Dispensed Refills Start Date End Date Status MELATONIN 1 MG PO Take 1 Tab by mouth 0 Active CAPS EVERY BEDTIME. ZINC 15 MG PO CAPS Dosage/frequency 0 Active not documented MIRALAX PO Take by mouth 0 Active NEEDED Cod Liver Oil 10 Take by mouth. 0 Active MINIM Oral Cap B Pwsmqur-Duawzo-TK Take by mouth. 0 Active (MULTI-B COMPLEX PO) Probiotic Product Take by mouth. 0 Active (PROBIOTIC FORMULA PO) finasteride (PROSCAR) Take 5 mg by mouth 0 Active 5 MG Oral Tab DAILY. Tamsulosin HCl Take 0.4 mg by 0 Active (FLOMAX) 0.4 MG Oral mouth DAILY. 2 tabs Cap daily Thiamine 50 MG Oral Take 100 mg by 0 Active Cap mouth DAILY. indomethacin Take 50 mg by mouth 0 Active (INDOCIN) 50 MG Oral THREE TIMES DAILY. Cap dicyclomine (BENTYL) Take 1 Tab by mouth 80 Tab 3 09/20/2018 Active 20 MG Oral Tab THREE TIMES DAILY NEEDED (cramping). zolpidem (AMBIEN) 10 Take 1 Tab by mouth 30 Tab 0 05/18/2019 Active MG Oral EVERY BEDTIME TabIndications: NEEDED (insomnia). Insomnia, unspecified Max Daily Amount: type 10 mg. Benzonatate 200 MG Take 1 Cap by mouth 24 Cap 0 05/18/2019 Active Oral CapIndications: THREE TIMES DAILY. Acute bronchitis, unspecified organism albuterol HFA Take 2 Puffs by 1 Inhaler 0 08/21/2019 Active (VENTOLIN) 108 (90 inhalation EVERY Base) MCG/ACT FOUR HOURS Inhalation Aero NEEDED (shortness SolnIndications: of breath). Community acquired pneumonia of right lower lobe of lung (HCC) Spacer/Aero-Holding 1 Units by Does not 1 Each 0 08/21/2019 Active Chambers (PRO COMFORT apply route SPACER ADULT) Does NEEDED (with not apply inhaler). 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 BPH (benign prostatic hyperplasia) 09/11/2007 Overview: [facility] 2010 Cystoscopy 2010: normal bladder and enlarged prostate Treatment: flomax and avodart Bladder neck obstruction 09/11/2007 Chronic prostatitis 08/31/2007 Personal history of tobacco use, presenting hazards to health 07/23/2007 Insomnia, unspecified 07/23/2007 History of hepatitis C 07/23/2007 Allergic rhinitis, cause unspecified 07/23/2007 documented as of this encounter (statuses as of 08/21/2019) Resolved Problems Problem Noted Date Resolved Date Sciatica 11/08/2007 12/06/2016 Prostatitis, unspecified 09/11/2007 12/06/2016 Hematuria, unspecified 08/14/2007 12/06/2016 Hyperlipemia 07/23/2007 12/06/2016 Unspecified sinusitis (chronic) 07/23/2007 12/06/2016 documented as of this encounter (statuses as of 08/21/2019) Immunizations Name Administration Dates Next Due Hepatitis A Vaccine-Adult 08/02/2000 Hepatitis B Vaccine Adult 02/01/2001, 09/08/2000, 08/02/2000 documented as of this encounter Social History Tobacco Use Types Packs/Day Years Used Date Former Smoker Quit: 06/26/1974 Smokeless Tobacco: Never Used Alcohol Use Drinks/Week oz/Week Comments Yes occasional glass of wine Sex Assigned at Date Recorded Not on file documented as of this encounter Last Filed Vital Signs Vital Sign Reading Time Taken Comments Blood Pressure 120/68 08/21/2019 10:41 AM EST Pulse 73 08/21/2019 10:41 AM EST Temperature 37.2 08/21/2019 10:41 AM EST C (99 F) Respiratory Rate - - Oxygen Saturation 96% 08/21/2019 10:41 AM EST Inhaled Oxygen Concentration - - Weight 73 kg (161 lb) 08/21/2019 10:41 AM EST Height 170.2 cm (5' 7") 08/21/2019 10:41 AM EST Body Mass Index 25.22 08/21/2019 10:41 AM EST documented in this encounter Patient Instructions Patient InstructionsNoDanielle rodriguez NP - 08/21/2019 10:40 AM ESTContinue antibiotics as prescribed. Use robitussin for cough. Use albuterol inhaler with spacer - 2 puffs every 4 hours as needed for shortness of breath. Rinse your mouth after using to avoid oral thrush. Tylenol and ibuprofen as needed. Rest and fluids. Salt water gargles, cough drops, and hot tea with lemon or honey to help soothe your throat. If not feeling better in 7-10 days - return for re-eval. documented in this encounter Progress Notes Danielle Fisher NP - 08/21/2019 10:40 AM EST PATIENT: Gagan Brower : 1950 DATE OF SERVICE: 08/21/2019 CHIEF COMPLAINT: Chief Complaint Patient presents with ? ER F[facility] 08/18 flu and pneumonia Subjective HISTORY OF PRESENT ILLNESS: Gagan Brower is a 68-y.o. male. HPI Review of the hospitalization: I am seeing for transition of care following Emergency Room evaluation at [facility]. The date of emergency room visit was 08/18/19. Patient to [facility] Ed for "dehydration related to suspected flu". Symptoms since 08/13/19. Weakness and decreased oral intake. No volume depletion on ED provider exam. Coughing with deep breaths. No travel. No flu exposure. Tests: Chest xray: Patchy airspace disease of the right lung base Flu: Positive flu A Discharge diagnosis: Flu and pneumonia. No tamiflu as out of window. Given Rocephin IM in Er, plus first dose of aizithromycin. Rx'd high dose Augmentin 2000 mg twice daily x5 days, and 4 more days of azithromycin 250 mg. Today: Still fatigue. Still coughing sometimes. Coughs and then will get a spasm, coughing fits make hard to breath. Fever is gone - no more body aches and chills. Day 3 of antibiotics - finish on Monday. No shortness of breath (except when coughing hard). No chest pain, palpitations. Mild dizziness (but thinks because he took a sleeping pill), no headache. Past Medical History: Diagnosis Date ? Acute Hepatitis C 07/23/2007 negative VL ? Allergic Rhinitis 07/23/2007 ? BPH ? Chronic prostatitis 08/31/2007 ? Former Smoker 07/23/2007 ? Hyperlipidemia 07/23/2007 ? Insomnia 07/23/2007 ? 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 Unspecified sinusitis (chronic) 07/23/2007 Family History Problem Relation Age of Onset ? Cancer Father leukemia ? Diabetes Father ? Heart Father ? Cancer Maternal Uncle prostate cancer Current Outpatient Medications Medication Sig ? albuterol HFA (VENTOLIN) 108 (90 Base) MCG/ACT Inhalation Aero Soln Take 2 Puffs by inhalation EVERY FOUR HOURS NEEDED (shortness of breath). ? B Rncnqve-Uotimz-YQ (MULTI-B COMPLEX PO) Take by mouth. ? Benzonatate 200 MG Oral Cap Take 1 Cap by mouth THREE TIMES DAILY. ? Cod Liver Oil 10 MINIM Oral Cap Take by mouth. ? dicyclomine (BENTYL) 20 MG Oral Tab Take 1 Tab by mouth THREE TIMES DAILY NEEDED (cramping). ? finasteride (PROSCAR) 5 MG Oral Tab Take 5 mg by mouth DAILY. ? indomethacin (INDOCIN) 50 MG Oral Cap Take 50 mg by mouth THREE TIMES DAILY. ? MELATONIN 1 MG PO CAPS Take 1 Tab by mouth EVERY BEDTIME. ? MIRALAX PO Take by mouth NEEDED ? Probiotic Product (PROBIOTIC FORMULA PO) Take by mouth. ? Spacer/Aero-Holding Chambers (PRO COMFORT SPACER ADULT) Does not apply Misc 1 Units by Does not apply route NEEDED (with inhaler). ? Tamsulosin HCl (FLOMAX) 0.4 MG Oral Cap Take 0.4 mg by mouth DAILY. 2 tabs daily ? Thiamine 50 MG Oral Cap Take 100 mg by mouth DAILY. ? ZINC 15 MG PO CAPS Dosage/frequency not documented ? zolpidem (AMBIEN) 10 MG Oral Tab Take 1 Tab by mouth EVERY BEDTIME NEEDED (insomnia). MaxDaily Amount: 10 mg. No current facility-administered medications for this visit. Allergies Allergen Reactions ? Bactrim Hives Social History Socioeconomic History ? Marital status: Spouse name: Not on file ? Number of children: Not on file ? Years of education: Not on file ? Highest education level: Not on file Occupational History ? Not on file Social Needs ? Financial resource strain: Not on file ? Food insecurity Worry: Not on file Inability: Not on file ? Transportation needs Medical: Not on file Non-medical: Not on file Tobacco Use ? Smoking status: Former Smoker Last attempt to quit: 06/26/1974 Years since quittin.1 ? Smokeless tobacco: Never Used Substance and Sexual Activity ? Alcohol use: Yes Comment: occasional glass of wine ? Drug use: No ? Sexual activity: Not Currently Lifestyle ? Physical activity Days per week: Not on file Minutes per session: Not on file ? Stress: Not on file Relationships ? Social connections Talks on phone: Not on file Gets together: Not on file Attends anabaptist service: Not on file Active member of club or organization: Not on file Attends meetings of clubs or organizations: Not on file Relationship status: Not on file ? Intimate partner violence Fear of current or ex partner: Not on file Emotionally abused: Not on file Physically abused: Not on file Forced sexual activity: Not on file Other Topics Concern ? Back Care Not Asked ? Bike Helmet Not Asked ? Blood Transfusions Not Asked ? Caffeine Concern Not Asked ? Exercise Yes ? Hobby Hazards Not Asked ? International Travel Not Asked ? Service Not Asked ? Occupational Exposure Not Asked ? Seat Belt Not Asked ? Self-Exams Not Asked ? Sleep Concern Not Asked ? Special Diet No ? Stress Concern Not Asked ? 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 Negative for chills and fever. HENT: Positive for congestion. Negative for ear discharge, ear pain, sinus pain and sore throat. Respiratory: Positive for cough and sputum production (light). Negative for shortness of breath. Cardiovascular: Negative for chest pain and palpitations. Gastrointestinal: Negative for nausea. Musculoskeletal: Negative for joint pain and myalgias. Neurological: Positive for dizziness. Negative for headaches. Objective PHYSICAL EXAM: VITALS: BP 120/68 (BP Location: Left arm, Patient Position: Sitting) | Pulse 73 | Temp 99 F (37.2 C) (Tympanic) | Ht 5' 7" (1.702 m) | Wt 161 lb ( 73 kg) | SpO2 96% | BMI 25.22 kg/m Body mass index is 25.22 kg/m. Physical Exam Vitals signs and nursing note reviewed. Constitutional: General: He is not in acute distress. Appearance: Normal appearance. He is well-developed. He is not ill-appearing or toxic-appearing. HENT: Right Ear: Tympanic membrane, ear canal and external ear normal. No mastoid tenderness. Tympanic membrane is not erythematous, retracted or bulging. Left Ear: Tympanic membrane, ear canal and external ear normal. No mastoid tenderness. Tympanic membrane is not erythematous, retracted or bulging. Nose: Nose normal. No mucosal edema. Right Sinus: No maxillary sinus tenderness or frontal sinus tenderness. Left Sinus: No maxillary sinus tenderness or frontal sinus tenderness. Mouth/Throat: Mouth: Mucous membranes are moist. Pharynx: Oropharynx is clear. Uvula midline. Posterior oropharyngeal erythema present. No oropharyngeal exudate. Tonsils: No tonsillar exudate. 1+ on the right. 1+ on the left. Eyes: Conjunctiva/sclera: Conjunctivae normal. Cardiovascular: Rate and Rhythm: Normal rate and regular rhythm. Heart sounds: Normal heart sounds. Pulmonary: Effort: Pulmonary effort is normal. Breath sounds: Examination of the right-lower field reveals rales. Rales present. Lymphadenopathy: Head: Right side of head: No submental, submandibular or tonsillar adenopathy. Left side of head: No submental, submandibular or tonsillar adenopathy. Cervical: No cervical adenopathy. Right cervical: No superficial cervical adenopathy. Left cervical: No superficial cervical adenopathy. Upper Body: Right upper body: No supraclavicular adenopathy. Left upper body: No supraclavicular adenopathy. Neurological: Mental Status: He is alert. Psychiatric: Behavior: Behavior is cooperative. ASSESSMENT / IMPRESSION: ICD-9-CM ICD-10-CM 1. Community acquired pneumonia of right lower lobe of lung (HCC) 481 J18.1 albuterol HFA (VENTOLIN) 108 (90 Base) MCG/ACT Inhalation Aero Soln Spacer/Aero-Holding Chambers (PRO COMFORT SPACER ADULT) Does not apply Misc 2. Influenza A 487.1 J10.1 Plan I reviewed the emergency room note, discharge instructions, and pertinent additional documentation obtained during the visit. I reconciled the medications. The tests that were not available at the time of discharge were reviewed. Additional tests which are not yet available include: N/a Coordination of care. - I am satisfied that appropriate referrals are in place to deal with the problems identified during hospitalization, and that the patient has adequate community resources and support in place. - Additional testing related to hospitilization was requested today: no See orders. I confirmed the patient's understanding of the diagnosis and plan of care. Specific education that was provided today: 1. Community acquired pneumonia of right lower lobe of lung (HCC) Continue antibiotics as prescribed - antibiotics chosen are appropriate. -declines tessalon perles or robitussin with codeine. Doing well with just over the counter robitussin. -ALubterol inhaler with spacer prn. -follow up if no improvement in 7-10 days with PCP. - albuterol HFA (VENTOLIN) 108 (90 Base) MCG/ACT Inhalation Aero Soln; Take 2 Puffs by inhalation EVERY FOUR HOURS NEEDED (shortness of breath). Dispense : 1 Inhaler; Refill: 0 - Spacer/Aero-Holding Chambers (PRO COMFORT SPACER ADULT) Does not apply Misc; 1 Units by Does not apply route NEEDED (with inhaler). Dispense: 1 Each; Refill: 0 2. Influenza A -continue symptomatic treatments. Out of window for tamiflu. Author: Danielle Fisher NP 08/21/2019 12:12 documented in this encounter Plan of Treatment Health Maintenance Due Date Last Done Comments DTaP/Tdap/Td Vaccines (1 - 1960 Tdap) ZOSTER IMMUNIZATION SERIES 12/14/1999 (1 of 2) AAA SCREENING/SURVEILLANCE 2014 FALL RISK ASSESSMENT 2014 PNEUMOCOCCAL 65+YRS (1 of 2 2014 - PCV13) Colonoscopy 08/14/2017 08/14/2007 DIABETES SCREENING 12/01/2017 12/01/2016, 07/25/2007 LIPID DISORDER SCREENING 12/01/2017 12/01/2016, 03/28/2013, 06/03/2010, Additional history exists MEDICARE ANNUAL WELLNESS 12/06/2017 12/06/2016, 12/06/2016 VISIT INFLUENZA VACCINE (#1) 2019 DEPRESSION SCREENING 04/17/2019 04/17/2018 HEPATITIS A IMMUNIZATION Aged Out 08/02/2000 No longer eligible SERIES based on patient's age to complete this topic HPV IMMUNIZATION SERIES Aged Out No longer eligible based on patient's age to complete this topic MENINGOCOCCAL VACCINE IMM Aged Out No longer eligible based on patient's age to complete this topic documented as of this encounter Goals Goal Patient Goal Associated Recent Patient-Stated? Author Type Problems Progress Blood Pressure Blood Pressure 120/68 No [place], < 150/90 (08/21/2019 Ambrosio Merida, 10:41 AM EST) Note: This is an individualized treatment (blood pressure) goal for Nikolas Inocente : Displayed above (on the left) is your goal for blood pressure control. Your most recent blood pressure is also shown above, on the right. You should try to achieve blood pressures that are lower than your goal listed above (on the left). Take all prescribed medications as Self-management Lexi Colon, Ambrosio Meirda MD directed Note: This is an individualized self-management goal for Gagan Brower: Please take all prescribed medications as directed. 1. Do not skip doses. If you cannot afford your medications, talk with your doctor. 2. Use a pill reminder system such as a pill box if needed. Your pharmacist can help you with this. 3. Contact your Pharmacy 5 days before your medication runs out. If you cannot take your medications for any reasons, talk with your doctor. 4. Please bring all of your medication bottles and inhalers (or a list of all your medications/inhalers) with you to every visit. Potential barriers to meeting all of your care plan goals will continue to be addressed on an ongoing basis. documented as of this encounter Results Not on filedocumented in this encounter Visit Diagnoses Diagnosis Community acquired pneumonia of right lower lobe of lung (HCC) Influenza A Influenza with other respiratory manifestations documented in this encounter Insurance Payer Benefit Plan / Subscriber ID Effective Dates Phone Address Type Group MEDICARE MEDICARE PART A [id number] 2014-Present Medicare & B [facility] [id number] 2016-Present [facility] OPT[employer] Guarantor Name Account Type Relation to Date of Phone Billing Patient Address Gagan Brower Personal/Family 1950 [address] [phone] [facility] ([place] [address] documented as of this encounter
--- OUTSIDE RECORDS SUMMARY | 2019-09-01 18:51 | XMS REPORT | Summary of Care ---
:1950 Author Organization [facility] Address [address] [place] [address] Care Team Providers Name Role Phone Ambrosio Colon Primary Care Provider Reason for Visit Reason Comments Sick pt hx of pneumonia, and flu . pt was seen at [facility] and [facility] , pt states being very tired, pt states sinus infection sympotmoms and productive cough Encounter Details Date Type Department Care Team Description [facility], recurrence not specified, unspecified location (Primary Dx); Practice Rose Smart MD Malaise and fatigue; [address] Community acquired pneumonia of right lower lobe of lung (HCC); [place] [address] [place] [address] Influenza A [phone] Allergies Active Allergy Reactions Severity Noted Date Comments Bactrim Hives 07/23/2007 documented as of this encounter (statuses as of 08/28/2019) Medications Medication Sig Dispensed Refills Start Date End Date Status MELATONIN 1 MG PO Take 1 Tab by mouth 0 Active CAPS EVERY BEDTIME. ZINC 15 MG PO CAPS Dosage/frequency 0 Active not documented MIRALAX PO Take by mouth 0 Active NEEDED Cod Liver Oil 10 Take by mouth. 0 Active MINIM Oral Cap B Ditwslg-Sthcad-GP Take by mouth. 0 Active (MULTI-B COMPLEX [...] of right lower lobe of lung (HCC) Cefdinir (OMNICEF) Take 1 Cap by mouth 20 Cap 0 08/28/2019 Active 300 MG Oral TWICE DAILY. CapIndications: Acute sinusitis, recurrence not specified, unspecified location documented as of this encounter (statuses as of 08/28/2019) Active Problems Problem Noted Date Hx of [...] as of this encounter (statuses as of 08/28/2019) Resolved Problems Problem Noted Date Resolved Date Sciatica 11/08/2007 12/06/2016 Prostatitis, unspecified 09/11/2007 12/06/2016 Hematuria, unspecified 08/14/2007 12/06/2016 Hyperlipemia 07/23/2007 12/06/2016 Unspecified sinusitis (chronic) 07/23/2007 12/06/2016 documented as of this encounter (statuses as of 08/28/2019) Immunizations Name Administration Dates Next Due Hepatitis [...] Sign Reading Time Taken Comments Blood Pressure 130/80 08/28/2019 2:08 PM EST Pulse 59 08/28/2019 2:08 PM EST Temperature 37 08/28/2019 2:08 PM EST C (98.6 F) Respiratory Rate - - Oxygen Saturation 99% 08/28/2019 2:08 PM EST Inhaled Oxygen Concentration - - Weight 71.7 kg (158 lb) 08/28/2019 2:08 PM EST Height 172.7 cm (5' 8") 08/28/2019 2:08 PM EST Body Mass Index 24.02 08/28/2019 2:08 PM EST documented in this encounter Patient Instructions Patient InstructionsRose Obregon MD - 08/28/2019 2:00 PM ESTIt takes a few weeks to recover your energy after influenza pneumonia. Stay hydrated Your lungs sound good today. For sinus congestion try over the counter saline nasal sray as needed or you can try 2 days max of an over the counter nasal decongestant spray. I ordered laboratory tests and will send results. If sinus pain continues, then Cefdinir twice daily for 7-10 days. You have been prescribed an antibiotic for treatment of your condition. It is important to rememberthat antibiotics treat bacterial infections, not viral infections. Antibiotics can cause stomach upset and diarrhea, and increase the risk of C. Difficile Colitis. You can help decrease these symptoms/risks by taking a probiotic while using the medication (Bib Biggs for example). Take your antibiotic with food unless otherwise recommended by the pharmacist. documented in this encounter Progress Notes Rose Obregon MD - 08/28/2019 2:00 PM EST Nursing Notes: Karla Chance LPN 08/28/2019 2:15 PM Signed Chief Complaint Patient presents with ? Sick pt hx of pneumonia, and flu . pt was seen at [facility] and [facility] , pt states being very tired, pt states sinus infection sympotmoms and productive cough Primary care provider: Ambrosio Colon Chief Complaint: Gagan Brower is a 68-y.o. male who presents for follow up of pneumonia. History of Present Illness/ROS: Patient saw Danielle GONZALEZ 08/21/2019 for ER follow up of dehydration and suspected influenza. He was treated with Rocephin IM and Azithromycin and Augmentin 100 mg bid x 5 days.. Influenza swab was positive for influenza A. He was felt to be out of the window for Tamiflu, so not given. He was told to complete his antibiotic course and follow up with his primary care provider, Ambrosio Colon. He is here to see me instead. He complains of sinus pressure today for several days. He is also fatigued. Has sinus headaches, bloody. He had fevers until 3 days ago, Monday. Resolved since. Chest xray 08/18/2019: right lower lobe patchy airspace disease. Review of Systems - General ROS: negative for - chills or fever x 3 days, no unexpected weight changes; he does complainof extreme fatigue ENT ROS: positive for maxillary an frontal headaches/sinus pain, nasal congestion, only mild but sometimes bloody nasal discharge, sinus pain. No sore throat or visual changes Respiratory ROS: negative for - hemoptysis or shortness of breath; prior cough is much improves, still a mild residual. Cardiovascular ROS: negative for - chest pain, dyspnea on exertion, edema or palpitations Gastrointestinal ROS: no abdominal pain, bowels are soft but not watery diarrhea. No bloody or black stool Neuro: denies focal weakness, numbness Past Medical History: Diagnosis Date ? Acute Hepatitis C 07/23/2007 negative VL ? Allergic Rhinitis 07/23/2007 ? BPH ? Chronic prostatitis 08/31/2007 ? Former Smoker 07/23/2007 ? Hyperlipidemia 07/23/2007 ? Insomnia 07/23/2007 ? 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 Unspecified sinusitis (chronic) 07/23/2007 History reviewed. No pertinent surgical history. Current Outpatient Medications: ? albuterol HFA (VENTOLIN) 108 (90 Base) MCG/ACT Inhalation Aero Soln, Take 2 Puffs by inhalation EVERY FOUR HOURS NEEDED (shortness of breath)., Disp: 1 Inhaler, Rfl: 0 ? B Mltwotw-Qitroj-CR (MULTI-B COMPLEX PO), Take by mouth., Disp: , Rfl: ? Benzonatate 200 MG Oral Cap, Take 1 Cap by mouth THREE TIMES DAILY., Disp: 24 Cap, Rfl: 0 ? Cefdinir (OMNICEF) 300 MG Oral Cap, Take 1 Cap by mouth TWICE DAILY., Disp: 20 Cap, Rfl: 0 ? Cod Liver Oil 10 MINIM Oral Cap, Take by mouth., Disp: , Rfl: ? dicyclomine (BENTYL) 20 MG Oral Tab, Take 1 Tab by mouth THREE TIMES DAILY NEEDED (cramping)., Disp: 80 Tab, Rfl: 3 ? finasteride (PROSCAR) 5 MG Oral Tab, Take 5 mg by mouth DAILY., Disp: , Rfl: ? indomethacin (INDOCIN) 50 MG Oral Cap, Take 50 mg by mouth THREE TIMES DAILY., Disp: , Rfl: ? MELATONIN 1 MG PO CAPS, Take 1 Tab by mouth EVERY BEDTIME. , Disp: , Rfl: ? MIRALAX PO, Take by mouth NEEDED , Disp: , Rfl: ? Probiotic Product (PROBIOTIC FORMULA PO), Take by mouth., Disp: , Rfl: ? Spacer/Aero-Holding Chambers (PRO COMFORT SPACER ADULT) Does not apply Misc, 1 Units by Does not apply route NEEDED (with inhaler)., Disp: 1 Each, Rfl: 0 ? Tamsulosin HCl (FLOMAX) 0.4 MG Oral Cap, Take 0.4 mg by mouth DAILY. 2 tabs daily, Disp: , Rfl: ? Thiamine 50 MG Oral Cap, Take 100 mg by mouth DAILY., Disp: , Rfl: ? ZINC 15 MG PO CAPS, Dosage/frequency not documented, Disp: , Rfl: ? zolpidem (AMBIEN) 10 MG Oral Tab, Take 1 Tab by mouth EVERY BEDTIME NEEDED (insomnia). Max Daily Amount: 10 mg., Disp: 30 Tab, Rfl: 0 Allergies Allergen Reactions ? Bactrim Hives Social [...] Last attempt to quit: 06/26/1974 Years since quittin.2 ? 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 Cancer Father leukemia ? Diabetes Father ? Heart Father ? Cancer Maternal Uncle prostate cancer PHYSICAL EXAMINATION: BP 130/80 | Pulse 59 | Temp 98.6 F (37 C) | Ht 5' 8" (1.727 m) | Wt 158 lb (71.7 kg) | SpO2 99% | BMI 24.02 kg/m Physical Examination: General appearance - alert, well appearing, and in no distress Mental status - alert, oriented to person, place, and time, normal mood, behavior, speech, dress, motor activity, and thought processes Eyes - pupils equal and reactive, extraocular eye movements intact, sclera anicteric Ears - bilateral TM's and external ear canals normal Nose: Red mucosa, no drainage Neck - supple, no cervical or supraclavicular adenopathy, carotids upstroke normal bilaterally, no bruits, thyroid exam: thyroid is normal in size without nodules or tenderness, no neck masses palpated. Chest/Lungs - clear to auscultation, no wheezes, rales or rhonchi, symmetric air entry, good aeration Heart - normal rate, regular rhythm, normal S1, S2, no murmurs, rubs, clicks or gallops Abdomen - soft, non tender on palpation, nondistended, no masses or hepatosplenomegaly, bowel soundsnormal, normal to percussion, no guarding or rebound. No costervertebral angle tenderness Neurological - alert, oriented, normal speech, no gross focal findings or movement disorder noted Extremities - dorsalis pedis pulses normal, no pedal edema, no clubbing or cyanosis ASSESSMENT/PLAN: ICD-9-CM ICD-10-CM 1. Acute sinusitis, recurrence not specified, unspecified location 461.9 J01.90 Cefdinir (OMNICEF) 300 MG Oral Cap 2. Malaise and fatigue 780.79 R53.81 CBC WITH DIFFERENTIAL R53.83 BASIC METABOLIC PANEL THYROID STIMULATING HORMONE THYROID STIMULATING HORMONE BASIC METABOLIC PANEL CBC WITH DIFFERENTIAL 3. Community acquired pneumonia of right lower lobe of lung (HCC) 481 J18.1 4. Influenza A 487.1 J10.1 Patient Instructions It takes a few weeks to recover your energy after influenza pneumonia. Stay hydrated Your lungs sound good today. For sinus congestion try over the counter saline nasal sray as needed or you can try 2 days max of an over the counter nasal decongestant spray. I ordered laboratory tests and will send results. If sinus pain continues, then Cefdinir twice daily for 7-10 days. You have been prescribed an antibiotic for treatment of your condition. It is important to rememberthat antibiotics treat bacterial infections, not viral infections. Antibiotics can cause stomach upset and diarrhea, and increase the risk of C. Difficile Colitis. You can help decrease these symptoms/risks by taking a probiotic while using the medication (Kalyan, Culturelle for example). Take your antibiotic with food unless otherwise recommended by the pharmacist. Author: Rose Obregon MD 08/28/2019 16:04 documented in this encounter Plan of Treatment Name Type Priority Associated Diagnoses Date/Time CBC WITH DIFFERENTIAL Lab Routine Malaise and fatigue 08/28/2019 2:34 PM EST BASIC METABOLIC PANEL Lab Routine Malaise and fatigue 08/28/2019 2:34 PM EST THYROID STIMULATING HORMONE Lab Routine Malaise and fatigue 08/28/2019 2: 34 PM EST Name Type Priority Associated Diagnoses Order Schedule CBC WITH DIFFERENTIAL Lab Routine Malaise and fatigue Expected: 08/28/2019 (Approximate), Expires: 08/27/2020 BASIC METABOLIC PANEL Lab Routine Malaise and fatigue Expected: 08/28/2019 (Approximate), Expires: 08/27/2020 THYROID STIMULATING HORMONE Lab Routine Malaise and fatigue Expected: 08/27 (Approximate), Expires: 08/27/2020 Health Maintenance Due Date Last Done Comments DTaP/Tdap/Td Vaccines (1 - 1960 Tdap) ZOSTER IMMUNIZATION SERIES 12/14/1999 (1 of 2) AAA SCREENING/SURVEILLANCE 2014 PNEUMOCOCCAL 65+YRS (1 of 2 2014 - PCV13) Colonoscopy 08/14/2017 08/14/2007 LIPID DISORDER SCREENING 12/01/2017 12/01/2016, 03/28/2013, 06/03/2010, Additional history exists MEDICARE ANNUAL WELLNESS 12/06/2017 12/06/2016, 12/06/2016 VISIT INFLUENZA VACCINE (#1) 2019 DEPRESSION SCREENING 08/27/2020 08/28/2019 FALL RISK ASSESSMENT 08/27/2020 08/28/2019, 08/28/2019 HEPATITIS A IMMUNIZATION Aged Out 08/02/2000 No [...] Type Problems Progress Blood Pressure Blood Pressure 130/80 No [place], < 150/90 (08/28/2019 Ambrosio Merida, 2:08 PM EST) Note: This is an individualized treatment (blood pressure) goal for Gagan Brower : Displayed above (on the left) is your goal for blood pressure control. Your most recent blood pressure is also shown above, on the right. You should try to achieve blood pressures that are lower than your goal listed above (on the left). Take all prescribed medications as Self-management No Ambrosio Colon MD directed Note: This is an individualized [...] filedocumented in this encounter Visit Diagnoses Diagnosis Acute sinusitis, recurrence not specified, unspecified location Malaise and fatigue Other malaise and fatigue Community acquired pneumonia of right lower lobe of lung (HCC) Influenza A Influenza with other respiratory manifestations documented in this encounter Insurance Payer Benefit Plan / Subscriber ID Effective Dates Phone Address Type Group MEDICARE MEDICARE PART A [id number] 2014-Present Medicare & B [facility] COMMERCIAL [facility] [id number] 2016-Present [facility] OPTIONS Guarantor Name Account Type Relation to Date of Phone Billing Patient Address Gagan Brower Personal/Family 1950 [address] [phone] [place], ([place]) [place] [id number] documented as of this encounter
[2019-09-01 18:55] LABS: ABS Basophils 0.1 10^3/ul (0-0.2); ABS Lymphocytes 0.5 10^3/ul (1.0-4.8); ABS Monocytes 0.6 10^3/ul (0-0.8); Hematocrit 43 % (42-52); Hemoglobin 14.9 g/dL (14.0-18.0); Lymphocyte % 3.6 %; Mean Corpuscular HGB Conc 35 g/dL (31-36); Mean Corpuscular Hemoglobin 31 pg (27-31); Mean Corpuscular Volume 90 fL (80-94); Mean Platelet Volume 6.8 fL (7.4-10.4); Platelet Count 329 10^3/uL (150-450); Red Blood Count 4.77 10^6 /uL (4.18-5.48); Red Cell Distribution Width 13 % (10-15); White Blood Count 14.2 10^3/uL (3.5-10.8)
[2019-09-01 19:11] LABS: Albumin 3.6 g/dL (3.2-5.2); Albumin/Globulin Ratio 1.1 (1-3); BUN/Creatinine Ratio 17.2 (8-20); EGFR African American 90.7 (>60); Globulin 3.3 g/dL (2-4); Potassium 3.5 mmol/L (3.5-5.0); Total Bilirubin 0.4 mg/dL (0.2-1.0); Total Protein 6.9 g/dL (6.4-8.9)
[2019-09-01 20:48] LABS: Urine Appearance Clear; Urine Bilirubin Negative (Negative); Urine Blood 1+ (Negative); Urine Color Yellow; Urine Glucose Negative (Negative); Urine Ketones Negative (Negative); Urine Nitrite Negative (Negative); Urine Protein Negative (Negative); Urine Specific Gravity 1.014 (1.010-1.030); Urine Urobilinogen Negative (Negative)
[2019-09-01 20:51] LABS: Urine Bacteria Absent (Absent); Urine Red Blood Cell Trace(0-2/hpf) (Absent); Urine White Blood Cell Absent (Absent)
[2019-09-01 21:10] VITALS: BP 154/90
== END 2019-09-01 20:56 | disposition home or self-care (01) ==
LOC: ED 18:25
DX: K59.00 Constipation, unspecified (principal); N40.0 Benign prostatic hyperplasia without lower urinary tract symptoms; E78.00 Pure hypercholesterolemia, unspecified; Z87.19 Personal history of other diseases of the digestive system; Z87.891 Personal history of nicotine dependence; Z88.2 Allergy status to sulfonamides
CPT/HCPCS: 36415; 74018; 80053; 81003; 81015; 85025; 96360; 99282; A9270-GY